=== PATIENT | male | born 1940 | race Caucasian/White ===

== ENCOUNTER → 2016-10-16 | Outpatient (CLI) | payer MEDICARE | END | disposition home or self-care (01) | LOC: RADCTMAIN 18:35 | PROVIDERS: ATTEND Family Medicine | DX: Z53.9 Procedure and treatment not carried out, unspecified reason (principal) ==

== ENCOUNTER → 2016-10-21 | Outpatient (CLI) | payer MEDICARE ==
[2016-10-21 20:09] LABS: Blood Urea Nitrogen 25 mg/dL (9-20); Non-African American GFR(MDRD) >60 (>60 ml/min/1.73 sqM)
--- NOTE | 2016-10-21 20:39 | CT ---
EXAMINATION TYPE: CT soft tissue neck w con DATE OF EXAM: 10/21/2016 8:31 PM COMPARISON: NONE HISTORY: Posterior neck mass for unknown time period, marked by BB. CT DLP: 704.00 mGycm Automated exposure control for dose reduction was used. CONTRAST: CT scan of the neck is performed following with IV Contrast, patient injected with 100 mL of Omnipaqu e 300. Axial images are obtained, coronal and sagittal reformatted images are reviewed. FINDINGS: The aortic arch appears normal. Thyroid gland is fairly symmetric. There is contrast opacification of the carotid arteries and jugular veins. There is bilateral contrast opacification of the vertebral a rteries. The parotid glands are symmetric. Submandibular salivary glands are symmetric. Epiglottis ap pears normal. The trachea appears normal. There is no sign of a pharyngeal mass. There is a oval-shap ed 3.5 x 2 cm fat density in the subcutaneous tissues on the left posterior neck. There is a similar appearance on the right side but left side is larger by 1.5 cm and consistent with a lipoma. The post erior neck muscles are symmetric. I see no bony destructive process. There is degenerative disc space narrowing at C3-4 and mild spurring. Paranasal sinuses appear normal. There are a few cervical lymph nodes that measure up to 1 cm. I see no cervical adenopathy. IMPRESSION: Asymmetric fatty tissue in the subcutaneous posterior neck on the left side consistent w ith lipoma. This is unchanged compared to old CT scan of 09/18/2014.
== END | disposition home or self-care (01) ==
LOC: RADCTMAIN 19:32
PROVIDERS: ATTEND Family Medicine
DX: L98.8 Other specified disorders of the skin and subcutaneous tissue (principal); R22.1 Localized swelling, mass and lump, neck
CPT/HCPCS: 82565; 84520; 70491; 36415; Q9967

== ENCOUNTER 2022-08-08 11:08 | Inpatient (IN) | payer MEDICARE ==
--- NOTE | 2022-08-08 12:15 | XR ---
EXAMINATION TYPE: XR chest 2V DATE OF EXAM: 08/08/2022 COMPARISON: 09/18/2014 HISTORY: 82-year-old male dysrhythmia TECHNIQUE: PA and lateral views FINDINGS: The heart is upper limits of normal in size. Aorta and pulmonary vasculature are normal. Mild interst itial prominence which is unchanged. No consolidation or pleural effusion. IMPRESSION: Borderline heart size. No acute process seen.
[2022-08-08] MEDS ORDERED: DILTIAZEM DRIP BOLUS FROM BAG 1 MG SOLN IV ONE (12:37)
[2022-08-08 12:44] LABS: Albumin 3.7 g/dL (3.5-5.0); Calcium 8.7 mg/dL (8.4-10.2); Magnesium 2.1 mg/dL (1.6-2.3); Potassium 4.9 mmol/L (3.5-5.1); Total Protein 6.9 g/dL (6.3-8.2)
[2022-08-08] MEDS ORDERED: DILTIAZEM 125 MG in SODIUM CHLORIDE 0.9% 100 ML IV SCH (12:45)
[2022-08-08 12:52] LABS: Basophils % (A) 0 %; Eosinophils # (A) 0.1 k/uL (0-0.7); Eosinophils % (A) 1 %; HCT 44.3 % (39.0-53.0); HGB 14.3 gm/dL (13.0-17.5); Lymphocytes # (A) 1.4 k/uL (1.0-4.8); Lymphocytes % (A) 19 %; MCHC 32.4 g/dL (31.0-37.0); MCV 95.7 fL (80.0-100.0); Mean Platelet Volume 7.9; Monocytes # (A) 0.7 k/uL (0-1.0); Monocytes % (A) 9 %; Neutrophils # (A) 4.8 k/uL (1.3-7.7); Neutrophils % (A) 68 %; Platelet Count 226 k/uL (150-450); RBC 4.63 m/uL (4.30-5.90); RDW 12.9 % (11.5-15.5); WBC 7.1 k/uL (3.8-10.6)
[2022-08-08 12:54] LABS: INR 1.1 (<1.2); Prothrombin Time 11.3 sec (9.0-12.0)
--- NOTE | 2022-08-08 13:06 | CT ---
EXAMINATION TYPE: CT brain wo con CT DLP: 1115.4 mGycm, Automated exposure control for dose reduction was used. DATE OF EXAM: 08/08/2022 12:56 PM COMPARISON: CT brain C-spine 09/18/2014. CLINICAL INDICATION:Male, 82 years old with history of left hand numbness, ams, sent by PCP for A-fib TECHNIQUE: Brain: Multiple axial CT images of the brain were obtained without IV contrast. Coronal and sagittal reformats reviewed. FINDINGS: Brain: Extra-axial spaces: No abnormal extra-axial fluid collections. Ventricular system: Within normal limits Cerebral parenchyma: Cerebral atrophy. No acute intraparenchymal hemorrhage or mass effect. The ryan -white junction is well differentiated. Scattered hypoattenuating areas are seen within the white mat ter. Nonspecific bilateral basal ganglia calcifications. Stable remote lacunar right basal ganglia i nfarct. Cerebellum: Symmetric stable bilateral cerebellar calcifications. Mass effect: No evidence of midline shift. Intracranial vasculature: Atherosclerotic calcifications of the intracranial vessels. Soft tissues: Normal. Calvarium/osseous structures: No depressed skull fracture. 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 Similar from prior exam. Visualized orbits: Bilateral aphakia. Bilateral scleral calcifications. IMPRESSION: 1. No acute intracranial process. 2. 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
[2022-08-08] MEDS ORDERED: SODIUM CHLORIDE 0.9% 500 ML 500 ML IV ONE (13:29)
[2022-08-08] MEDS ORDERED: HEPARIN SODIUM 1,000 UN/ML (10ML VL) IV PRN (13:31)
[2022-08-08] MEDS ORDERED: HEPARIN SODIUM 1,000 UN/ML (10ML VL) IV ONE (13:31)
[2022-08-08] MEDS ORDERED: ACETAMINOPHEN TAB 325 MG TAB PO PRN (13:42)
[2022-08-08] MEDS ORDERED: NALOXONE 0.4 MG/ML 1 ML VIAL IV PRN (13:42)
[2022-08-08] MEDS ORDERED: HEPARIN SOD,PORK IN 0.45% NACL 25,000 UNIT in 0.45% NACL 1 250ML.BAG IV SCH (13:45)
--- NOTE | 2022-08-08 13:49 | ED ---
General Adult HPI - General Chief complaint: Recheck/Abnormal Lab/Rx Stated complaint: AFib,Sent by PCP Time Seen by Provider: 08/08/22 11:31 Source: patient, RN notes reviewed, old records reviewed Mode of arrival: wheelchair Limitations: no limitations - History of Present Illness Initial comments: 82-year-old male sent in by primary care physician for new onset A. fib with RVR. Patient is a healthy 82-year-old. No prior history of A. fib. No history of CAD. Patient had gone to his primary care physician for left hand numbness which been present for the past 2 weeks or more. No headache. No vision changes. No focal weakness. No head injury. No rectal bleeding. - Related Data Home Medications Medication Instructions Recorded Confirmed Aspirin 81 mg PO HS 09/18/14 08/08/22 Alfuzosin HCl [Alfuzosin HCl ER] 10 mg PO HS 08/08/22 08/08/22 Ascorbic Acid [Vitamin C] 1,000 mg PO HS 08/08/22 08/08/22 Calcium Carb/Mag Ox/Zinc Sulf 1 tab PO HS 08/08/22 08/08/22 [Bcx-Xfp-Rgdg 334-134-5 mg Tab] Cholecalciferol [Vitamin D3 (25 25 mcg PO HS 08/08/22 08/08/22 Mcg = 1000 Iu)] Mv-Mn/Om3/Dha/Epa/Fish/Lut/Hortencia 1 cap PO HS 08/08/22 08/08/22 [Ocuvite Adult 50 Plus Softgel] Allergies Allergy/AdvReac Type Severity Reaction Status Date / Time iodine AdvReac Nausea & Verified 08/08/22 12:26 Vomiting Review of Systems ROS Statement: Those systems with pertinent positive or pertinent negative responses have been documented in the HPI. ROS Other: All systems not noted in ROS Statement are negative. Past Medical History Past Medical History: No Reported History History of Any Multi-Drug Resistant Organisms: None Reported Additional Past Surgical History / Comment(s): prostate Past Psychological History: No Psychological Hx Reported Smoking Status: Never smoker Past Alcohol Use History: Rare Past Drug Use History: None Reported General Exam Limitations: no limitations General appearance: alert, in no apparent distress Head exam: Present: atraumatic, normocephalic Eye exam: Present: normal appearance, PERRL ENT exam: Present: normal exam Neck exam: Present: normal inspection. Absent: tenderness, meningismus Respiratory exam: Present: normal lung sounds bilaterally. Absent: respiratory distress, wheezes Cardiovascular Exam: Present: tachycardia, irregular rhythm GI/Abdominal exam: Present: soft. Absent: distended, tenderness, guarding Extremities exam: Present: normal inspection, normal capillary refill. Absent: pedal edema, calf tenderness Neurological exam: Present: alert, oriented X3, CN II-XII intact. Absent: motor sensory deficit Psychiatric exam: Present: normal affect, normal mood Skin exam: Present: warm, dry, intact. Absent: cyanosis, diaphoretic Course Vital Signs 08/08/22 08/08/22 11:24 12:38 Temperature 97.8 F Pulse Rate 136 H 150 H Respiratory 18 18 Rate Blood Pressure 104/73 104/88 O2 Sat by Pulse 95 97 Oximetry EKG Findings - EKG Comments: EKG Findings:: EKG: Atrial fibrillation with RVR rate of 149, QRS duration 126, QTC 397 to right bundle branch block, no ST segment elevation. - EKG Results: EKG: interpreted by JAJA Medical Decision Making - Medical Decision Making Was pt. sent in by a medical professional or institution (, PA, GTA, urgent care, hospital, or prison...) When possible be specific @ -Centimeters by primary care physician Did you speak to anyone other than the patient for history (EMS, parent, family, police, friend...)? What history was obtained from this source @ -[No] Did you review nursing and triage notes (agree or disagree)? Why? @ -[I reviewed and agree with nursing and triage notes] Were old charts reviewed (outside hosp., previous admission, EMS record, old EKG, old radiological studies, urgent care reports/EKG's, prison records)? Report findings @ -[No old charts were reviewed] Differential Diagnosis (chest pain, altered mental status, abdominal pain women, abdominal pain men, vaginal bleeding, weakness, fever, dyspnea, syncope, hea dache, dizziness, GI bleed, back pain, seizure, CVA, palpatations, mental health, musculoskeletal)? @ Differential Weakness: Hypoglycemia, shock, sepsis, hyponatremia, anemia, infection, VT, ETOH, adverse medicine reaction, overdose, stroke, this is not meant to be an all-inclusive list. EKG interpreted by me (3pts min.). @ -[As above] X-rays interpreted by me (1pt min.). @ -[Negative for acute cardiopulmonary findings CT interpreted by me (1pt min.). @ -[No itch cranial hemorrhage, remote basal ganglion infarct U/S interpreted by me (1pt. min.). @ -[None done] What testing was considered but not performed or refused? (CT, X-rays, U/S, labs)? Why? @ -[None] What meds were considered but not given or refused? Why? @ -[None] Did you discuss the management of the patient with other professionals (professionals i.e. Dr., PA, GTA, lab, RT, psych nurse, social science professor, student driving instructor, teacher, us customs and border officer, family preservation caseworker)? Give summary @ -[No] Was smoking cessation discussed for >3mins.? @ -[No] Was critical care preformed (if so, how long)? @ -[yes ] Were there social determinants of health that impacted care today? How? (Homelessness, low income, unemployed, alcoholism, drug addiction, transportation, low edu. Level, literacy, decrease access to med. care, long term, rehab)? @ -[No] Was there de-escalation of care discussed even if they declined (Discuss DNR or withdrawal of care, Hospice)? DNR status @ -[No] What co-morbidities impacted this encounter? (DM, HTN, Smoking, COPD, CAD, Cancer, CVA, ARF, Chemo, Hep., AIDS, mental health diagnosis, sleep apnea, morbid obesity)? @ -[None] Was patient admitted / discharged? Hospital course, mention meds given and route, prescriptions, significant lab abnormalities, going to OR and other pertinent info. @ -[82-year-old male with new-onset H fibrillation with RVR and left hand numbness. Head CT was performed which is negative for intracranial hemorrhage. Patient was started on Cardizem and has a chads 2 Vasc of 2 and is antic oagulated]. Laboratory testing is unremarkable, troponin negative patient will be admitted to Dr. Shea with cardiology on consult Undiagnosed new problem with uncertain prognosis? @ -[No] Drug Therapy requiring intensive monitoring for toxicity (Heparin, Nitro, Insulin, Cardizem)? @ -[No Were any procedures done? @ -[No] Diagnosis/symptom? @ -[New-onset A. fib] Acute, or Chronic, or Acute on Chronic? @ -[Acute] Uncomplicated (without systemic symptoms) or Complicated (systemic symptoms)? @ -[Complicated] Side effects of treatment? @ -[No] Exacerbation, Progression, or Severe Exacerbation? @ -[No] Poses a threat to life or bodily function? How? (Chest pain, USA, VT, pneumonia, PE, COPD, DKA, ARF, appy, cholecystitis, CVA, Diverticulitis, Homicidal, Suicidal, threat to staff... and all critical care pts) @ -[Arrhythmia, hypotension, multiorgan failure] - Lab Data Result diagrams: 08/08/22 12:33 08/08/22 12:33 Lab Results 08/08/22 08/08/22 08/08/22 Range/Units 12:33 12:33 12:33 WBC 7.1 (3.8-10.6) k/uL RBC 4.63 (4.30-5.90) m/uL Hgb 14.3 (13.0-17.5) gm/dL Hct 44.3 (39.0-53.0) % MCV 95.7 (80.0-100.0) fL MCH 31.0 (25.0-35.0) pg MCHC 32.4 (31.0-37.0) g/dL RDW 12.9 (11.5-15.5) % Plt Count 226 (150-450) k/uL MPV 7.9 Neutrophils % 68 % Lymphocytes % 19 % Monocytes % 9 % Eosinophils % 1 % Basophils % 0 % Neutrophils # 4.8 (1.3-7.7) k/uL Lymphocytes # 1.4 (1.0-4.8) k/uL Monocytes # 0.7 (0-1.0) k/uL Eosinophils # 0.1 (0-0.7) k/uL Basophils # 0.0 (0-0.2) k/uL PT 11.3 (9.0-12.0) sec INR 1.1 (<1.2) APTT 27.0 (22.0-30.0) sec Sodium 138 (137-145) mmol/L Potassium 4.9 (3.5-5.1) mmol/L Chloride 105 (98-107) mmol/L Carbon Dioxide 26 (22-30) mmol/L Anion Gap 7 mmol/L BUN 36 H (9-20) mg/dL Creatinine 1.44 H (0.66-1.25) mg/dL Est GFR (CKD-EPI)AfAm 52 (>60 ml/min/1.73 sqM) Est GFR (CKD-EPI)NonAf 45 (>60 ml/min/1.73 sqM) Glucose 131 H (74-99) mg/dL Calcium 8.7 (8.4-10.2) mg/dL Magnesium 2.1 (1.6-2.3) mg/dL Total Bilirubin 1.0 (0.2-1.3) mg/dL AST 27 (17-59) U/L ALT 21 (4-49) U/L Alkaline Phosphatase 66 (38-126) U/L Troponin I (0.000-0.034) ng/mL Total Protein 6.9 (6.3-8.2) g/dL Albumin 3.7 (3.5-5.0) g/dL TSH 1.710 (0.465-4.680) mIU/L 08/08/22 Range/Units 12:33 WBC (3.8-10.6) k/uL RBC (4.30-5.90) m/uL Hgb (13.0-17.5) gm/dL Hct (39.0-53.0) % MCV (80.0-100.0) fL MCH (25.0-35.0) pg MCHC (31.0-37.0) g/dL RDW (11.5-15.5) % Plt Count (150-450) k/uL MPV Neutrophils % % Lymphocytes % % Monocytes % % Eosinophils % % Basophils % % Neutrophils # (1.3-7.7) k/uL Lymphocytes # (1.0-4.8) k/uL Monocytes # (0-1.0) k/uL Eosinophils # (0-0.7) k/uL Basophils # (0-0.2) k/uL PT (9.0-12.0) sec INR (<1.2) APTT (22.0-30.0) sec Sodium (137-145) mmol/L Potassium (3.5-5.1) mmol/L Chloride (98-107) mmol/L Carbon Dioxide (22-30) mmol/L Anion Gap mmol/L BUN (9-20) mg/dL Creatinine (0.66-1.25) mg/dL Est GFR (CKD-EPI)AfAm (>60 ml/min/1.73 sqM) Est GFR (CKD-EPI)NonAf (>60 ml/min/1.73 sqM) Glucose (74-99) mg/dL Calcium (8.4-10.2) mg/dL Magnesium (1.6-2.3) mg/dL Total Bilirubin (0.2-1.3) mg/dL AST (17-59) U/L ALT (4-49) U/L Alkaline Phosphatase (38-126) U/L Troponin I <0.012 (0.000-0.034) ng/mL Total Protein (6.3-8.2) g/dL Albumin (3.5-5.0) g/dL TSH (0.465-4.680) mIU/L Critical Care Time Critical Care Time: Yes Total Critical Care Time: 35 Disposition Clinical Impression: New onset a-fib, Atrial fibrillation with RVR Disposition: ADMITTED IP TO THIS HOSP Condition: Stable Is patient prescribed a controlled substance at d/c from ED?: No Referrals: Sheldon Li DO [Primary Care Provider] - 1-2 days Time of Disposition: 13:49
[2022-08-08] MEDS: SODIUM CHLORIDE 0.9% 1,000 ML IV SCH (14:19)
[2022-08-08] MEDS ORDERED: MELATONIN 3 MG TABLET PO PRN (15:00)
[2022-08-08] MEDS ORDERED: CALCIUM CARBONATE 500 MG CHEWABLE PO PRN (15:00)
[2022-08-08] MEDS ORDERED: LACTULOSE 20 GM/30 ML CUP PO PRN (15:00)
[2022-08-08] MEDS ORDERED: ONDANSETRON 4 MG/2 ML VIAL IVP PRN (15:00)
[2022-08-08] MEDS ORDERED: LORazepam 0.5 MG TAB PO PRN (15:00)
--- NOTE | 2022-08-08 19:50 | P.HPIM ---
History of Present Illness H&P Date: 08/08/22 Chief Complaint: Rapid heart rate This is a pleasant 82-year-old patient who follows Dr. Li. Chronic stable medical conditions include BPH, osteoarthritis. Patient went to see his doctor today was found to have atrial fibrillation with rapid ventricular rate. Denies any palpitation dizziness chest pain or pressure. His activity somewhat limited because of arthritis in his knees. Started on IV heparin and IV Cardizem drip in the ER. Patient has noticed since July 24 area of numbness on the left upper lip and also some numbness in the left forearm. No weakness. Denies any other focal weakness. No change in vision speech swallowing. Has chronic lower extremity edema. No orthopnea. Review of systems: GEN.: None EYES: None HEENT: None NECK: None RESPIRATORY: None CARDIOVASCULAR: None GASTROINTESTINAL: None GENITOURINARY: Some trouble with urines scream MUSCULOSKELETAL: Joint pains especially in the LYMPHATICS: None HEMATOLOGICAL: None PSYCHIATRY: None NEUROLOGICAL: As above. Past medical history to include: BPH, osteoarthritis, obesity Social history: . No smoking or alcohol Physical examination: VITAL SIGNS: 97.8, 136, 18, 104/73, 95% room air GENERAL: BMI 37.6 recliningt awake comfortable. EYES: Pupils equal. Conjunctiva normal. HEENT: External appearance of nose and ears normal, oral cavity grossly normal. NECK: JVD not raised; masses not palpable. HEART: Heart sounds irregular; present edema. LUNGS: Respiratory rate normal; clear to auscultation. ABDOMEN: Soft, nontender, liver spleen not palpable, no masses palpable. PSYCH: Alert and oriented x3; mood and affect normal. MUSCULOSKELETAL:No Clubbing/cyanosis;muscles-grossly intact. OA NEUROLOGICAL: Cranial nerves grossly intact; no facial asymmetry, power and sensation grossly intact. LYMPHATICS: No lymph nodes palpable in the axilla and neck INVESTIGATIONS, reviewed in the clinical context: White count 7.1 hemoglobin 14.3 platelets 226 potassium 4.9 BUN 36 creatinine 1.44 Troponin I less than 0.012 TSH 1.7 EKG tracing personally reviewed by me-atrial fibrillation. Rate 149 Chest x-ray film personally reviewed by me-remarkable CT brain without contrast: Remote right basal ganglia lacunar along with nonspecific white matter changes. Assessment and plan: -Atrial fibrillation uncontrolled off unknown duration. Patient had been asymptomatic IV heparin. IV Cardizem drip. 2-D echocardiogram. -Remote right basal ganglia lacunar infarct -Chronic lower extremity venous insufficiency RICHY stockings -Obesity BMI 37.6 Weight loss measures -Primary osteoarthritis Tylenol for pain control -BPH alfuzosin Consult cardiology. Neurology. Care was discussed with the patient and and daughter the bedside. Questions answered. Past Medical History Past Medical History: Diabetes Mellitus Additional Past Medical History / Comment(s): Type 2 diabetic History of Any Multi-Drug Resistant Organisms: None Reported Past Surgical History: Appendectomy, Prostate Surgery Additional Past Surgical History / Comment(s): prostate Past Anesthesia/Blood Transfusion Reactions: No Reported Reaction Past Psychological History: No Psychological Hx Reported Smoking Status: Never smoker Past Alcohol Use History: Rare Past Drug Use History: None Reported Medications and Allergies Home Medications Medication Instructions Recorded Confirmed Type Aspirin 81 mg PO HS 09/18/14 08/08/22 History Alfuzosin HCl [Alfuzosin HCl ER] 10 mg PO HS 08/08/22 08/08/22 History Ascorbic Acid [Vitamin C] 1,000 mg PO HS 08/08/22 08/08/22 History Calcium Carb/Mag Ox/Zinc Sulf 1 tab PO HS 08/08/22 08/08/22 History [Hjz-Wih-Furs 334-134-5 mg Tab] Cholecalciferol [Vitamin D3 (25 25 mcg PO HS 08/08/22 08/08/22 History Mcg = 1000 Iu)] Mv-Mn/Om3/Dha/Epa/Fish/Lut/Hortencia 1 cap PO HS 08/08/22 08/08/22 History [Ocuvite Adult 50 Plus Softgel] Allergies Allergy/AdvReac Type Severity Reaction Status Date / Time iodine AdvReac Nausea & Verified 08/08/22 12:26 Vomiting Physical Exam Vitals: Vital Signs Temp Pulse Pulse Resp BP BP Pulse Ox 08/08/22 17:24 97.8 F 85 18 147/99 97 08/08/22 15:41 125 H 18 125/88 97 08/08/22 14:00 110 H 18 121/64 98 08/08/22 12:38 150 H 18 104/88 97 08/08/22 11:24 97.8 F 136 H 18 104/73 95 Intake and Output 08/08/22 08/08/22 08/08/22 06:59 14:59 22:59 Intake Total 133.583 Balance 133.583 Intake: Intake, IV Titration 13.583 Amount Diltiazem 125 mg In 13.583 Sodium Chloride 0.9% 100 ml @ 5 MG/HR 5 mls/hr IV .Q24H COUNTS INCLUDE 234 BEDS AT THE [facility] Rx#:[id number] Oral 120 Other: Weight 108.862 kg 108.862 kg Results CBC & Chem 7: 08/08/22 12:33 08/08/22 12:33 Labs: Abnormal Lab Results - Last 24 Hours (Table) 08/08/22 Range/Units 12:33 BUN 36 H (9-20) mg/dL Creatinine 1.44 H (0.66-1.25) mg/dL Glucose 131 H (74-99) mg/dL Thrombosis Risk Factor Assmnt - Choose All That Apply Other Risk Factors: Yes Each Risk Factor Represents 3 Points: Age 75 years or older Thrombosis Risk Factor Assessment Total Risk Factor Score: 3 Thrombosis Risk Factor Assessment Level: Moderate Risk
[2022-08-08] MEDS: TAMSULOSIN 0.4 MG CAP.ER.24H PO SCH (19:59)
[2022-08-08] MEDS: ASCORBIC ACID 500 MG TAB PO SCH (19:59)
[2022-08-08] MEDS: ASPIRIN 81 MG PO SCH (19:59)
[2022-08-08] MEDS: CHOLECALCIFEROL 25 MCG (1000 IU) TABLET PO SCH (19:59)
[2022-08-08 20:05] LABS: Glucose,Whole Blood 145 mg/dL (70-110)
[2022-08-09] MEDS: SODIUM CHLORIDE 0.9% 1,000 ML IV SCH (03:01)
[2022-08-09 06:24] LABS: Glucose,Whole Blood 109 mg/dL (70-110)
[2022-08-09] MEDS: METOPROLOL TARTRATE 50 MG TAB PO SCH ×2 (08:51→20:08)
[2022-08-09] MEDS: APIXABAN 5 MG TAB PO SCH ×2 (08:51→20:08)
[2022-08-09 09:00] LABS: Basophils % (A) 1 %; Eosinophils # (A) 0.2 k/uL (0-0.7); Eosinophils % (A) 3 %; Lymphocytes # (A) 1.5 k/uL (1.0-4.8); Lymphocytes % (A) 26 %; MCH 31.9 pg (25.0-35.0); MCHC 32.5 g/dL (31.0-37.0); MCV 98.1 fL (80.0-100.0); Mean Platelet Volume 8.6; Monocytes # (A) 0.5 k/uL (0-1.0); Monocytes % (A) 8 %; Neutrophils # (A) 3.4 k/uL (1.3-7.7); Neutrophils % (A) 59 %; Platelet Count 192 k/uL (150-450); RBC 4.38 m/uL (4.30-5.90); RDW 13.2 % (11.5-15.5); WBC 5.8 k/uL (3.8-10.6)
[2022-08-09 09:23] LABS: INR 1.1 (<1.2); Partial Thromboplastin Time 68.1 sec (22.0-30.0); Prothrombin Time 11.8 sec (9.0-12.0)
--- NOTE | 2022-08-09 10:03 | P.CRDCN ---
History of Present Illness Consult date: 08/09/22 History of present illness: HISTORY OF PRESENT ILLNESS: This is a 82-year-old male with no significant past medical history. 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 We have been asked to see the patient in consultation for atrial fibrillation with RVR. Patient examined at the bedside. Patient presented to hospitals a chief complaint of numbness of his fingers on his left hand. Patient is admitted to the hospital secondary to atrial fi brillation with RVR. Patient denies a history of afib. He was started on IV Cardizem and IV heparin. Patient remains in atrial fibrillation this morning with controlled ventricular rate. Vital signs are stable. * EKG reveals atrial fibrillation with RVR. Right bundle branch block. * Chest xray negative for acute process. Borderline heart size. * CT brain: Negative for acute process. Remote right basal ganglia or lacunar along with nonspecific white matter changes likely secondary to chronic m icroangiopathy. * Laboratory data: WBC 7.1. Hemoglobin 14.3. Platelet count 226. Sodium 130. Potassium 4.9. BUN 36. Creatinine 1.44. Troponin negative 1. TSH 1.710. * Current home cardiac medications include none REVIEW OF SYSTEMS: At the time of my exam: CONSTITUTIONAL: Denies fever or chills. HEENT: Denies blurred vision, vision changes, or eye pain. Denies hemoptysis CARDIOVASCULAR: Denies chest pain. Denies orthopnea. Denies PND. Denies palpitations RESPIRATORY: Denies shortness of breath. GASTROINTESTINAL: Denies abdominal pain. Denies nausea or vomiting. HEMATOLOGIC: Denies bleeding disorders. GENITOURINARY: Denies any blood in urine. SKIN: Denies pruitis. Denies rash. PHYSICAL EXAM: VITAL SIGNS: Reviewed. GENERAL: Well-developed in no acute distress. HEENT: Head is normocephalic. Pupils are equal, round. Sclerae anicteric. Mucous membranes of the mouth are moist. Neck supple. No JVD or thyromegaly LUNGS: Respirations even and unlabored. Lungs essentially clear to auscultation bilaterally. HEART: Irregular rate and rhythm. S1 and S2 heard. Soft systolic murmur noted. ABDOMEN: Soft. Nondistended. Nontender. EXTREMITIES: Normal range of motion. No clubbing or cyanosis. Peripheral pulses intact. 2+ bilateral lower extremity edema NEUROLOGIC: Awake and alert. Oriented x 3. ASSESSMENT: New-onset atrial fibrillation with RVR Numbness of left fingers Chronic lower extremity edema likely secondary to venous insufficiency PLAN: Obtain 2-D echo to assess cardiac structure and function TSH within normal limits Discontinue IV heparin and IV Cardizem Begin Eliquis 5mg BID Begin metoprolol tartrate 50 mg twice a day Add PO Lasix 20 mg daily for lower extremity edema Continue telemetry monitoring Further recommendations pending patient's course Nurse practitioner note has been reviewed by physician. Signing provider agrees with the documented findings, assessment, and plan of care. Past Medical History Past Medical History: Diabetes Mellitus Additional Past Medical History / Comment(s): Type 2 diabetic History of Any Multi-Drug Resistant Organisms: None Reported Past Surgical History: Appendectomy, Prostate Surgery Additional Past Surgical History / Comment(s): prostate Past Anesthesia/Blood Transfusion Reactions: No Reported Reaction Past Psychological History: No Psychological Hx Reported Smoking Status: Never smoker Past Alcohol Use History: Rare Past Drug Use History: None Reported Medications and Allergies Home Medications Medication Instructions Recorded Confirmed Type Aspirin 81 mg PO HS 09/18/14 08/08/22 History Alfuzosin HCl [Alfuzosin HCl ER] 10 mg PO HS 08/08/22 08/08/22 History Ascorbic Acid [Vitamin C] 1,000 mg PO HS 08/08/22 08/08/22 History Calcium Carb/Mag Ox/Zinc Sulf 1 tab PO HS 08/08/22 08/08/22 History [Ssw-Uoi-Bxzt 334-134-5 mg Tab] Cholecalciferol [Vitamin D3 (25 25 mcg PO HS 08/08/22 08/08/22 History Mcg = 1000 Iu)] Mv-Mn/Om3/Dha/Epa/Fish/Lut/Hortencia 1 cap PO HS 08/08/22 08/08/22 History [Ocuvite Adult 50 Plus Softgel] Allergies Allergy/AdvReac Type Severity Reaction Status Date / Time iodine AdvReac Nausea & Verified 08/08/22 12:26 Vomiting Physical Exam Vitals: Vital Signs Temp Pulse Pulse Resp BP BP Pulse Ox 08/09/22 07:20 97.9 F 66 17 113/62 95 08/09/22 03:13 97.9 F 104 H 18 97/59 97 08/08/22 23:25 98.3 F 90 18 95/60 96 08/08/22 19:44 98 F 103 H 18 101/56 94 L 08/08/22 17:24 97.8 F 85 18 147/99 97 08/08/22 15:41 125 H 18 125/88 97 08/08/22 14:00 110 H 18 121/64 98 08/08/22 12:38 150 H 18 104/88 97 08/08/22 11:24 97.8 F 136 H 18 104/73 95 Intake and Output 08/08/22 08/09/22 08/09/22 22:59 06:59 14:59 Intake Total 133.583 Balance 133.583 Intake: Intake, IV Titration 13.583 Amount Diltiazem 125 mg In 13.583 Sodium Chloride 0.9% 100 ml @ 5 MG/HR 5 mls/hr IV .Q24H [facility] Rx#:[id number] Oral 120 Other: # Voids 2 Weight 108.862 kg Results 08/09/22 07:56 08/08/22 12:33 Cardiac Enzymes 08/08/22 08/08/22 Range/Units 12:33 12:33 AST 27 (17-59) U/L Troponin I <0.012 (0.000-0.034) ng/mL Coagulation 08/08/22 08/08/22 Range/Units 12:33 18:52 PT 11.3 (9.0-12.0) sec APTT 27.0 54.7 H (22.0-30.0) sec CBC 08/08/22 Range/Units 12:33 WBC 7.1 (3.8-10.6) k/uL RBC 4.63 (4.30-5.90) m/uL Hgb 14.3 (13.0-17.5) gm/dL Hct 44.3 (39.0-53.0) % Plt Count 226 (150-450) k/uL Comprehensive Metabolic Panel 08/08/22 Range/Units 12:33 Sodium 138 (137-145) mmol/L Potassium 4.9 (3.5-5.1) mmol/L Chloride 105 (98-107) mmol/L Carbon Dioxide 26 (22-30) mmol/L BUN 36 H (9-20) mg/dL Creatinine 1.44 H (0.66-1.25) mg/dL Glucose 131 H (74-99) mg/dL Calcium 8.7 (8.4-10.2) mg/dL AST 27 (17-59) U/L ALT 21 (4-49) U/L Alkaline Phosphatase 66 (38-126) U/L Total Protein 6.9 (6.3-8.2) g/dL Albumin 3.7 (3.5-5.0) g/dL Current Medications Generic Name Dose Route Start Last Admin Trade Name Charlieq PRN Reason Stop Dose Admin Acetaminophen 650 mg 08/08/22 13:42 Acetaminophen Tab 325 Mg Tab PO Q6HR PRN Mild Pain or Fever > 100.5 Ascorbic Acid 1,000 mg 08/08/22 21:00 08/08/22 19:59 Ascorbic Acid 500 Mg Tab PO 1,000 mg HS [facility] Administration Aspirin 81 mg 08/08/22 21:00 08/08/22 19:59 Aspirin 81 Mg PO 81 mg HS [facility] Administration Calcium Carbonate/Glycine 1,000 mg 08/08/22 15:00 Calcium Carbonate 500 Mg Chewable PO Q4HR PRN Dyspepsia Cholecalciferol 25 mcg 08/08/22 21:00 08/08/22 19:59 Cholecalciferol 25 Mcg (1000 Iu) Tablet PO 25 mcg HS [facility] Administration Heparin Sodium (Porcine) 0 unit 08/08/22 13:31 Heparin Sodium 1,000 Un/Ml (10ml Vl) IV PER PROTOCOL PRN Low PTT Protocol Diltiazem HCl 125 mg/ Sodium 125 mls @ 5 mls/hr 08/08/22 12:45 08/08/22 15:43 Chloride IV 10 mg/hr .Q24H [facility] 10 mls/hr Infusion 5 MG/HR Sodium Chloride 1,000 mls @ 75 mls/hr 08/08/22 13:30 08/09/22 03:01 Saline 0.9% IV 75 mls/hr .[id number] [facility] Administration Heparin Sodium/Sodium Chloride 250 mls @ 9.994 mls/hr 08/08/22 13:45 08/08/22 14:21 25,000 unit/ Sodium Chloride IV 9.18 units/kg/hr .Q24H [facility] 9.994 mls/hr Administration Protocol 9.18 UNITS/KG/HR Lactulose 20 gm 08/08/22 15:00 Lactulose 20 Gm/30 Ml Cup PO DAILY PRN Constipation Lorazepam 0.5 mg 08/08/22 15:00 Lorazepam 0.5 Mg Tab PO Q6HR PRN Anxiety Melatonin 3 mg 08/08/22 15:00 Melatonin 3 Mg Tablet PO HS PRN Insomnia Naloxone HCl 0.2 mg 08/08/22 13:42 Naloxone 0.4 Mg/Ml 1 Ml Vial IV Q2M PRN Opioid Reversal Ondansetron HCl 4 mg 08/08/22 15:00 Ondansetron 4 Mg/2 Ml Vial IVP Q8HR PRN Nausea And Vomiting Tamsulosin HCl 0.4 mg 08/08/22 21:00 08/08/22 19:59 Tamsulosin 0.4 Mg Cap.Er.24h PO 0.4 mg HS [facility] Administration Intake and Output 08/08/22 08/09/22 08/09/22 22:59 06:59 14:59 Intake Total 133.583 Balance 133.583 Intake: Intake, IV Titration 13.583 Amount Diltiazem 125 mg In 13.583 Sodium Chloride 0.9% 100 ml @ 5 MG/HR 5 mls/hr IV .Q24H [facility] Rx#:[id number] Oral 120 Other: # Voids 2 Weight 108.862 kg 08/08/22 12:33 08/08/22 12:33
[2022-08-09 11:39] LABS: Glucose,Whole Blood 123 mg/dL (70-110)
[2022-08-09] MEDS: FUROSEMIDE 20 MG TAB PO SCH (12:32)
--- NOTE | 2022-08-09 15:42 | P.PN ---
Progress Note - Text Progress Note Date: 08/09/22 Chief Complaint: Rapid heart rate This is a pleasant 82-year-old patient who follows Dr. Li. Chronic stable medical conditions include BPH, osteoarthritis. Patient went to see his doctor today was found to have atrial fibrillation with rapid ventricular rate. Denies any palpitation dizziness chest pain or pressure. His activity somewhat limited because of arthritis in his knees. Started on IV heparin and IV Cardizem drip in the ER. Patient has noticed since July 24 area of numbness on the left upper lip and also some numbness in the left forearm. No weakness. Denies any other focal weakness. No change in vision speech swallowing. Has chronic lower extremity edema. No orthopnea. 08/09/2022: Patient remains in atrial fibrillation. Heart rate less than 100. This after patient sitting up in a chair eating lunch. at the bedside. No chest pain or palpitation. Patient earlier was taken off IV heparin and IV Cardizem by cardiology Started on metoprolol 50 mg twice daily. Active Medications Acetaminophen (Acetaminophen Tab 325 Mg Tab) 650 mg PO Q6HR PRN PRN Reason: Mild Pain or Fever > 100.5 Apixaban (Apixaban 5 Mg Tab) 5 mg PO BID [facility]; Protocol Last Admin: 08/09/22 08:51 Dose: 5 mg Ascorbic Acid (Ascorbic Acid 500 Mg Tab) 1,000 mg PO [facility] Last Admin: 08/08/22 19:59 Dose: 1,000 mg Aspirin (Aspirin 81 Mg) 81 mg PO HS [facility] Last Admin: 08/08/22 19:59 Dose: 81 mg Calcium Carbonate/Glycine (Calcium Carbonate 500 Mg Chewable) 1,000 mg PO Q4HR PRN PRN Reason: Dyspepsia Cholecalciferol (Cholecalciferol 25 Mcg (1000 Iu) Tablet) 25 mcg PO [facility] Last Admin: 08/08/22 19:59 Dose: 25 mcg Furosemide (Furosemide 20 Mg Tab) 20 mg PO DAILY [facility] Last Admin: 08/09/22 12:32 Dose: 20 mg Lactulose (Lactulose 20 Gm/30 Ml Cup) 20 gm PO DAILY PRN PRN Reason: Constipation Lorazepam (Lorazepam 0.5 Mg Tab) 0.5 mg PO Q6HR PRN PRN Reason: Anxiety Melatonin (Melatonin 3 Mg Tablet) 3 mg PO HS PRN PRN Reason: Insomnia Metoprolol Tartrate (Metoprolol Tartrate 50 Mg Tab) 50 mg PO BID [facility] Last Admin: 08/09/22 08:51 Dose: 50 mg Naloxone HCl (Naloxone 0.4 Mg/Ml 1 Ml Vial) 0.2 mg IV Q2M PRN PRN Reason: Opioid Reversal Ondansetron HCl (Ondansetron 4 Mg/2 Ml Vial) 4 mg IVP Q8HR PRN PRN Reason: Nausea And Vomiting Tamsulosin HCl (Tamsulosin 0.4 Mg Cap.Er.24h) 0.4 mg PO HS [facility] Last Admin: 08/08/22 19:59 Dose: 0.4 mg Past medical history to include: BPH, osteoarthritis, obesity Social history: . No smoking or alcohol Physical examination: VITAL SIGNS: 98.3, 65, 17, 106/62, 98% room air GENERAL: Sitting up in a chair, eating lunch EYES: Pupils equal. Conjunctiva normal. HEENT: External appearance of nose and ears normal, oral cavity grossly normal. NECK: JVD not raised; masses not palpable. HEART: Heart sounds irregular; edema present LUNGS: Respiratory rate normal; clear to auscultation. ABDOMEN: Soft, nontender, liver spleen not palpable, no masses palpable. PSYCH: Alert and oriented x3; mood and affect normal. MUSCULOSKELETAL:No Clubbing/cyanosis;muscles-grossly intact. OA NEUROLOGICAL: Cranial nerves grossly intact; no facial asymmetry, power and sensation grossly intact. INVESTIGATIONS, reviewed in the clinical context: August 09: White count 5.8 hemoglobin 14 platelets 192 White count 7.1 hemoglobin 14.3 platelets 226 potassium 4.9 BUN 36 creatinine 1.44 Troponin I less than 0.012 TSH 1.7 EKG tracing personally reviewed by me-atrial fibrillation. Rate 149 Chest x-ray film personally reviewed by me-remarkable CT brain without contrast: Remote right basal ganglia lacunar along with nonspecific white matter changes. Assessment and plan: -Persistent Atrial fibrillation-asymptomatic, rate better controlled IV heparin. IV Cardizem drip. Discontinued Lopressor 50 mg twice a day. 2-D echocardiogram pending -Remote right basal ganglia lacunar infarct 2-D echocardiogram. Consult neurology. -Chronic lower extremity venous insufficiency RICHY stockings -Obesity BMI 37.6 Weight loss measures -Primary osteoarthritis Tylenol for pain control -BPH alfuzosin -DO NOT RESUSCITATE IV heparin, IV Cardizem drip discontinued. Lopressor started. Pending 2-D echocardiogram. Consult neurology. Discussed with patient and .
[2022-08-09 16:33] LABS: Glucose,Whole Blood 142 mg/dL (70-110)
[2022-08-09] MEDS: ASCORBIC ACID 500 MG TAB PO SCH (20:08)
[2022-08-09] MEDS: ASPIRIN 81 MG PO SCH (20:08)
[2022-08-09] MEDS: TAMSULOSIN 0.4 MG CAP.ER.24H PO SCH (20:08)
[2022-08-09] MEDS: CHOLECALCIFEROL 25 MCG (1000 IU) TABLET PO SCH (20:08)
[2022-08-09 20:15] LABS: Glucose,Whole Blood 119 mg/dL (70-110)
--- NOTE | 2022-08-10 06:14 | P.PN ---
Subjective Progress Note Date: 08/10/22 Principal diagnosis: Persistent atrial fibrillation The patient is an 82-year-old gentleman with a past medical history significant for hypertension and dyslipidemia who was admitted to the hospital with left arm numbness. He was found to be in atrial fibrillation with RVR which is a new diagnosis to him. An echo was ordered. He was started on beta charisse and oral anticoagulation August 10 2022 The patient was seen and evaluated this morning. He remains in atrial fibr illation was overall and controlled heart rate. I'm going to increase the dose of beta charisse. He is on oral anticoagulation. An echo still pending. No symptoms of chest pain or chest discomfort at this point. Assessment Left arm numbness which has improved Atrial fibrillation with uncontrolled heart rate Multiple comorbid conditions Plan Increase the dose of beta charisse Continue oral anticoagulation Follow-up on the echocardiogram Objective - Vital Signs Vital signs: Vital Signs Temp 98.2 F 08/10/22 03:18 Pulse 102 H 08/10/22 03:18 Resp 18 08/10/22 03:18 BP 110/73 08/10/22 03:18 Pulse Ox 96 08/10/22 03:18 FiO2 Intake & Output 08/09/22 08/09/22 08/10/22 06:59 18:59 06:59 Intake Total 354 Balance 354 Weight 111.4 kg Intake: Oral 354 Other: Voiding Method Toilet Toilet # Voids 2 3 - Labs CBC & Chem 7: 08/09/22 07:56 08/08/22 12:33 Labs: Abnormal Lab Results - Last 24 Hours (Table) 08/09/22 08/09/22 08/09/22 Range/Units 07:56 11:32 16:30 APTT 68.1 H (22.0-30.0) sec POC Glucose (mg/dL) 123 H 142 H (70-110) mg/dL 08/09/22 Range/Units 20:14 APTT (22.0-30.0) sec POC Glucose (mg/dL) 119 H (70-110) mg/dL
[2022-08-10 06:15] LABS: Glucose,Whole Blood 115 mg/dL (70-110)
[2022-08-10 09:10] VITALS: TEMP 97.8
[2022-08-10] MEDS: FUROSEMIDE 20 MG TAB PO SCH (09:10)
[2022-08-10] MEDS: METOPROLOL TARTRATE 50 MG TAB PO SCH ×2 (09:10→16:12)
[2022-08-10] MEDS: APIXABAN 5 MG TAB PO SCH (09:10)
[2022-08-10 12:02] LABS: Glucose,Whole Blood 84 mg/dL (70-110)
--- NOTE | 2022-08-10 12:34 | CA ---
Transthoracic Echo Report Name: Alonzo Lambert Age: 82 Gender: M : 1940 Exam Date: 08/09/2022 12:00 Exam Location: [facility] Ht (in): 67 Wt (lb): 240 Ordering Physician: Ricardo Shea MD Attending/Referring Phys: Pin Chaser Percy Ruiz RDCS Procedure CPT: Indications: 2-D echo Cardiac Hx: A. Fib; CAD; HTN; CHF; Pulm. Emphysema; Obesity. Technical Quality: Fair Contrast 1: Total Dose (mL): Contrast 2: Total Dose (mL): MEASUREMENTS (Male / Female) Normal Values 2D ECHO LV Diastolic Diameter PLAX 5.3 cm 4.2 - 5.9 / 3.9 - 5.3 cm LV Systolic Diameter PLAX 4.1 cm LV Fractional Shortening PLAX 21.8 % IVS Diastolic Thickness 1.0 cm 0.6 - 1.0 / 0.6 - 0.9 cm IVS Systolic Thickness 1.4 cm LVPW Diastolic Thickness 1.4 cm 0.6 - 1.0 / 0.6 - 0.9 cm LVPW Systolic Thickness 1.5 cm LV Relative Wall Thickness 0.4 RV Internal Dim ED PLAX 2.9 cm LVOT Diameter 2.3 cm LA Systolic Diameter LX 3.6 cm 3.0 - 4.0 / 2.7 - 3.8 cm LV Diastolic Volume MOD 4C 88.7 cm??? LV Systolic Volume MOD 4C 46.6 cm??? LV Ejection Fraction MOD 4C 47.5 % LV Stroke Volume MOD 4C 42.1 cm??? LV Diastolic Length 4C 7.0 cm LV Systolic Length 4C 6.1 cm Ascending Aorta Diameter 2.7 cm M-MODE Aortic Root Diameter MM 2.7 cm LA Systolic Diameter MM 4.0 cm LA Ao Ratio MM 1.5 AV Cusp Separation MM 1.7 cm DOPPLER AV Peak Velocity 119.8 cm/s AV Peak Gradient 5.7 mmHg LVOT Peak Velocity 91.1 cm/s LVOT Peak Gradient 3.3 mmHg AV Area Cont Eq pk 3.1 cm??? MV Deceleration [place] 456.4 cm/s??? MR Peak Velocity 323.3 cm/s MR Peak Gradient 41.8 mmHg Mitral E Point Velocity 91.7 cm/s Mitral A Point Velocity 20.2 cm/s Mitral E to A Ratio 4.5 MV Deceleration Time 200.9 ms TR Peak Velocity 180.6 cm/s TR Peak Gradient 13.0 mmHg Right Ventricular Systolic Press 22.0 mmHg PV Peak Velocity 68.0 cm/s PV Peak Gradient 1.8 mmHg FINDINGS Left Ventricle Left ventricular ejection fraction is estimated at 35-40 %. Borderline left ventricular hypertrophy. Grade 3 diastolic dysfunction. Moderately reduced global left ventricular systolic function. [place] hypokinetic. Dyskinetic septum. Right Ventricle Normal right ventricular size .RVSP- 29 mm Hg. Right Atrium Mild right atrial dilatation. Left Atrium Normal left atrial size. Mitral Valve Mitral valve thickened. Flail mitral valve. Fxoc-zf-kelprdre mitral regurgitation. Minimal mitral stenosis. Aortic Valve Trileaflet aortic valve. Diffuse thickening (sclerosis) of the aortic valve cusps without reduced excursion. Tricuspid Valve TV is flailing;mild tricuspid regurgitation. Pulmonic Valve Trace to mild pulmonic regurgitation. Pericardium Normal pericardium. No pericardial effusion. Aorta Normal size aortic root and proximal ascending aorta. CONCLUSIONS Impaired LV function was EF between 35-40% Aortic sclerosis with no stenosis or insufficiency Axon-zy-uuqibsnc mitral regurgitation Previewed by: Dr. Zaid Barreto MD (Electronically Signed) Final Date: 10 August 2022 12:33
--- NOTE | 2022-08-10 15:26 | P.CNNES ---
History of Present Illness Consult date: 08/10/22 Requesting physician: Ricardo Shea Reason for Consult: Subacute, lacunar infarct History of Present Illness: Patient is a 82-year-old right-handed male came to the hospital on 08/08/2022 at 11:08 AM for new onset atrial fibrillation. Patient states that on 07/24/2022, he was sitting in the chair, watching TV, but he developed numbness of the left side of the lip, left side of the face and also numbness of the left hand in lateral 3 digits. He did not tell this to his until on 08/08/2022. His took him to the primary physician's office, where an EKG revealing atrial fibrillation therefore he was referred to the hospital. He denies any slurred speech, facial droop, problem with the vision, focal weakness of the extremities. Vital signs on arrival blood pressure 104/73, pulse rate 136 and temperature 97.8. Blood test shows normal CBC, PT/PTT, normal electrolytes, BUN 36 creatinine 1.44. Hepatic panel is normal, troponin negative, TSH is normal. CT head revealed no acute process. Remote right basal ganglial lacunar infarct along with nonspecific white matter changes, likely secondary to chronic microangiopathy. I personally reviewed d CT head, and there is no evidence of significant abnormality or lacunar infarcts. Mild basal ganglionic and cerebellar calcification. These calcifications are essentially unchanged from previous computed tomography scan of head from 09/18/2014. Patient has history of type 2 diabetes borderline, not on treatment. He does not know about his cholesterol status. Patient quit smoking in 1973. Does not drink alcohol. Review of Systems Constitutional: Denies chills, Denies fever Eyes: denies blurred vision, denies diplopia, denies pain Ears: bilateral: decreased hearing, deny: earache Ears, nose, mouth and throat: Denies headache, Denies sore throat Cardiovascular: Denies chest pain, Denies shortness of breath Respiratory: Denies cough, Denies excessive sputum Gastrointestinal: Denies abdominal pain, Denies diarrhea, Denies nausea, Denies vomiting Musculoskeletal: Denies myalgias Integumentary: Denies pruritus, Denies rash Neurological: Reports as per HPI ( history) Psychiatric: Denies anxiety, Denies depression Past Medical History Past Medical History: Diabetes Mellitus Additional Past Medical History / Comment(s): Type 2 diabetic History of Any Multi-Drug Resistant Organisms: None Reported Past Surgical History: Appendectomy, Prostate Surgery Additional Past Surgical History / Comment(s): prostate Past Anesthesia/Blood Transfusion Reactions: No Reported Reaction Past Psychological History: No Psychological Hx Reported Smoking Status: Never smoker Past Alcohol Use History: Rare Past Drug Use History: None Reported Medications and Allergies Home Medications Medication Instructions Recorded Confirmed Type Aspirin 81 mg PO HS 09/18/14 08/08/22 History Alfuzosin HCl [Alfuzosin HCl ER] 10 mg PO HS 08/08/22 08/08/22 History Ascorbic Acid [Vitamin C] 1,000 mg PO HS 08/08/22 08/08/22 History Calcium Carb/Mag Ox/Zinc Sulf 1 tab PO HS 08/08/22 08/08/22 History [Sjp-Bfl-Txgc 334-134-5 mg Tab] Cholecalciferol [Vitamin D3 (25 25 mcg PO HS 08/08/22 08/08/22 History Mcg = 1000 Iu)] Mv-Mn/Om3/Dha/Epa/Fish/Lut/Hortencia 1 cap PO HS 08/08/22 08/08/22 History [Ocuvite Adult 50 Plus Softgel] Apixaban [Eliquis] 5 mg PO BID #60 tab 08/09/22 Rx Allergies Allergy/AdvReac Type Severity Reaction Status Date / Time iodine AdvReac Nausea & Verified 08/08/22 12:26 Vomiting Physical Examination - Vital Signs Vital Signs: Vital Signs Temp Pulse Resp BP Pulse Ox 08/10/22 11:21 77 16 102/72 97 08/10/22 09:10 97.8 F 78 15 119/66 99 08/10/22 03:18 98.2 F 102 H 18 110/73 96 08/09/22 23:36 98.3 F 89 20 111/81 98 08/09/22 19:51 98.2 F 100 18 132/103 08/09/22 16:00 97.7 F 61 16 128/61 98 08/09/22 14:00 65 17 Intake and Output 08/09/22 08/10/22 08/10/22 22:59 06:59 14:59 Intake Total 118 358 Balance 118 358 Intake: Oral 118 358 Other: Voiding Method Toilet Toilet Toilet # Voids 3 Weight 111.4 kg Patient is an elderly male, very pleasant, in no acute distress. Patient is alert awake oriented to time place and person. He knows it is July 2022 and that he is in [facility]. Speech and language functions are normal. Patient can name and repeat very well. No aphasia or dysarthria. Attention, concentration and fund of knowledge is adequate. On cranial nerve examination, both pupils are surgical. Left pupil probably is slightly irregular nasally. His visual [place] are full on confrontation, with no neglect on double simultaneous stimulation. Extraocular muscles are intact with no nystagmus. Face is symmetric, tongue protrudes to the midline. Palatal elevation and sensation normal, hearing is severely decreased and shoulder shrug normal, facial sensation normal. On muscle strength testing, there is no pronator drift and the strength is normal in arms and legs distally and proximally. Deep tendon reflexes are very hypoactive and plantars downgoing. Sensory to touch is equal with no neglect on double simultaneous stimulation. Cerebellar function showed no ataxia for cggpkj-[id number] testing. Tone and bulk of muscles normal. Gait deferred.. On general examination, there is no carotid bruit or murmur, S1-S2 audible. Heart rate is regular. Chest is clear on consultation. Abdomen is soft nontender. No organomegaly, bowel sounds present. Peripheral pulses are present. Moderate peripheral edema. Results - Laboratory Findings CBC and BMP: 08/09/22 07:56 08/08/22 12:33 Abnormal Lab Findings: Abnormal Labs 08/08/22 08/08/22 08/08/22 12:33 18:52 20:02 APTT 54.7 H BUN 36 H Creatinine 1.44 H Glucose 131 H POC Glucose (mg/dL) 145 H 08/09/22 08/09/22 08/09/22 07:56 11:32 16:30 APTT 68.1 H BUN Creatinine Glucose POC Glucose (mg/dL) 123 H 142 H 08/09/22 08/10/22 20:14 06:14 APTT BUN Creatinine Glucose POC Glucose (mg/dL) 119 H 115 H Assessment and Plan Assessment: * Probable small launar stroke manifesting with numbness of the left cheek and left hand since 07/24/2022. The left facial numbness resolved, but left hand numbness in median nerve distribution has persisted. Current NIH stroke scale is 0. * New onset atrial fibrillation * Hypertension * Borderline diabetes * Obesity * Peripheral edema * Hard of hearing Plan: * Patient has new onset atrial fibrillation. Patient started on Eliquis 2.5 mg twice a day and also on aspirin. * 2-D echo revealed impaired left ventricular function with EF between 35-40%. Aortic sclerosis with no stenosis or insufficiency. Mild to moderate MR. * Did not hear any carotid bruit. * May suggest health maintenance as an outpatient with fasting lipid panel, A1c. * Neurologically clear for discharge. Thank you for the consult.
[2022-08-10 15:33] VITALS: BP 124/76; PULSE 74; RESP 17
--- NOTE | 2022-08-11 23:06 | P.DS ---
Providers Date of admission: 08/08/22 13:43 Attending physician: Ricardo Shea Consults: 08/08/22 13:42 Consult Physician Routine Consulting Provider: Daniel Apodaca Consult Reason/Comments: New-onset A. 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 Hypertension Borderline diabetes Obesity Chronic peripheral edema Hard of hearing Former Smoker No Code Discharge Disposition Patient stable for discharge in guarded prognosis. Recommend close follow up with cardiology, neurology and PCP on discharge. Patient recommended for routine health maintenance to undergo fasting lipid panel and A1C monitoring outpatient. Scripts are given on discharge. Patient is being discharged on eliquis 5 mg BID and counseled on lifestyle modifications. Family at bedside and all questions are answered. Hospital Course This is a pleasant 82-year-old patient who follows Dr. Li. Chronic stable medical conditions include BPH, osteoarthritis. Patient went to see his doctor today was found to have atrial fibrillation with rapid ventricular rate. Denies any palpitation dizziness chest pain or pressure. His activity somewhat limited because of arthritis in his knees. Started on IV heparin and IV Cardizem drip in the ER. Patient has noticed since July 24 area of numbness on the left upper lip and also some numbness in the left forearm. No weakness. Denies any other focal weakness. No change in vision speech swallowing. Has chronic lower extremity edema. No orthopnea. Patient is admitted to the hospital with consult placed to cardiology and neurology. Chest xray showing no acute process. Initial labs showing BUN 36, creatinine 1.44. Troponin negative. CBC unremarkable. Patient was taken off IV heparin and IV Cardizem by cardiology Started on metoprolol 50 mg twice daily. Heart rate dropped to the low 100s and metoprolol was increased to TID and remains now in atrial fibrillation with controlled rate. Patient had echocardiogram done showing EF of 35-40% with aortic sclerosis with no stenosis or insufficiency. Mild to moderate mitral regurgitation. Reviewed with cardiology and patient will be discharged on oral lasix and has been anticoagulated with eliquis and will continued on discharge. Patient recommended for close follow up with cardiology on discharge. Patient underwent neurological evaluation and had brain CT done showing no acute intracranial process with remote right basal ganglial lacunar infarct along with nonspecific white matter changes likely secondary to chronic microangiopathy. Neurology felt likely small lacunar infarct. Patient is anticoagulated on discharge and recommend neurology follow up. 08/10/2022 Patient is evaluated today sitting up in chair. No acute events overnight. Residual left hand numbness. No chest pain, no shortness of breath. Lungs are diminished, S1 S2 auscultated irregularly irregular. Rate of 74. Patient is alert x 3, focal neurological exam is negative. He would like to be discharged home today. Cleared by neurology and cardiology. Recommend close follow up on discharge. Please see medication reconciliation for a list of current medication. Thank you for allowing us to participate in the care of this patient. The impression and plan of care has been dictated by Yasmeen Russell, Nurse Practitioner as directed. Dr. Mike MD I have performed a history and physical examination and medical decision making of this patient, discussed the same with the dictator, and agree with the dictators assessment and plan as written, documented as a scribe. Based on total visit time, I have performed more than 50% of this visit. Patient Condition at Discharge: Stable Plan - Discharge Summary New Discharge Prescriptions: New Apixaban [Eliquis] 5 mg PO BID #60 tab Furosemide [Lasix] 20 mg PO DAILY #30 tab Famotidine [Pepcid] 20 mg PO BID #60 tablet Metoprolol Tartrate [Lopressor] 50 mg PO TID #90 tab Atorvastatin [Lipitor] 40 mg PO DAILY #30 tablet Continue Aspirin 81 mg PO HS Ascorbic Acid [Vitamin C] 1,000 mg PO HS Mv-Mn/Om3/Dha/Epa/Fish/Lut/Hortencia [Ocuvite Adult 50 Plus Softgel] 1 cap PO HS Calcium Carb/Mag Ox/Zinc Sulf [Dkl-Iyq-Jwtb 334-134-5 mg Tab] 1 tab PO HS Cholecalciferol [Vitamin D3 (25 Mcg = 1000 Iu)] 25 mcg PO HS Alfuzosin HCl [Alfuzosin HCl ER] 10 mg PO HS Discharge Medication List Aspirin 81 mg PO HS 09/18/14 [History] Alfuzosin HCl [Alfuzosin HCl ER] 10 mg PO HS 08/08/22 [History] Ascorbic Acid [Vitamin C] 1,000 mg PO HS 08/08/22 [History] Calcium Carb/Mag Ox/Zinc Sulf [Itw-Kgt-Cgff 334-134-5 mg Tab] 1 tab PO HS 08/08/22 [History] Cholecalciferol [Vitamin D3 (25 Mcg = 1000 Iu)] 25 mcg PO HS 08/08/22 [History] Mv-Mn/Om3/Dha/Epa/Fish/Lut/Hortencia [Ocuvite Adult 50 Plus Softgel] 1 cap PO HS 08/08/22 [History] Apixaban [Eliquis] 5 mg PO BID #60 tab 08/09/22 [Rx] Atorvastatin [Lipitor] 40 mg PO DAILY #30 tablet 08/10/22 [Rx] Famotidine [Pepcid] 20 mg PO BID #60 tablet 08/10/22 [Rx] Furosemide [Lasix] 20 mg PO DAILY #30 tab 08/10/22 [Rx] Metoprolol Tartrate [Lopressor] 50 mg PO TID #90 tab 08/10/22 [Rx] Follow up Appointment(s)/Referral(s): Mirta Castillo MD [STAFF PHYSICIAN] - 2 Weeks (Office is closed, please call to [facility] follow up appointment ) Ben Tam MD [REFERRING] - 1 Week (Office is closed, please call to schedule hospital follow up. ) Sheldon Li DO [Primary Care Provider] - 1-2 days (Office is closed, please call to schedule hospital follow up. ) Ambulatory/Diagnostic Orders: Miscellaneous Lab Order [LAB.AMB] Time Frame: 1 Week, Location: None Selected Miscellaneous Lab Order [LAB.AMB] Time Frame: 1 Week, Location: None Selected Patient Instructions/Handouts: A-fib (Atrial Fibrillation) (DC) Activity/Diet/Wound Care/Special Instructions: Eliquis filled at [facility] - copay $40.64 Recommend fasting lipid panel and A1C which can be done outpatient on follow. Lab script are given. Recommend neurology follow up on discharge Cardiology follow up on discharge Follow up with PCP in 1 to 2 days Discharge Disposition: HOME SELF-CARE
== END 2022-08-10 16:35 | disposition home or self-care (01) | DRG 308 ==
LOC: EC 11:08 → 3SCARD 13:43
PROVIDERS: ADMIT Hospitalist; ATTEND Hospitalist
PROC: B246ZZ4 Ultrasonography of Right and Left Heart, Transesophageal (ICD-10-PCS; principal; 2022-08-09)
DX: I48.19 Other persistent atrial fibrillation (principal); I63.81 Other cerebral infarction due to occlusion or stenosis of small artery; I45.10 Unspecified right bundle-branch block; I70.0 Atherosclerosis of aorta; K59.00 Constipation, unspecified; M19.91 Primary osteoarthritis, unspecified site; I87.2 Venous insufficiency (chronic) (peripheral); I34.0 Nonrheumatic mitral (valve) insufficiency; I42.9 Cardiomyopathy, unspecified; G47.00 Insomnia, unspecified; F41.9 Anxiety disorder, unspecified; I10 Essential (primary) hypertension; E66.9 Obesity, unspecified; E78.5 Hyperlipidemia, unspecified; Z91.041 Radiographic dye allergy status; N40.0 Benign prostatic hyperplasia without lower urinary tract symptoms; Z68.37 Body mass index [BMI] 37.0-37.9, adult; Z79.01 Long term (current) use of anticoagulants; Z79.82 Long term (current) use of aspirin; Z79.899 Other long term (current) drug therapy; Z86.73 Personal history of transient ischemic attack (TIA), and cerebral infarction without residual deficits; Z87.891 Personal history of nicotine dependence; Z66 Do not resuscitate
CPT/HCPCS: 36415; 70450; 71046; 80053; 83735; 84443; 84484; 85025; 85610; 85730; 93005; 93306; 94760; 96365; 96366; 96368; 99291

== ENCOUNTER 2022-09-26 10:46 | Emergency (ER) | payer MEDICARE ==
[2022-09-26 11:37] LABS: Glucose,Whole Blood 138 mg/dL (70-110)
[2022-09-26 12:04] LABS: INR 1.3 (<1.2); Partial Thromboplastin Time 27.6 sec (22.0-30.0); Prothrombin Time 13.2 sec (9.0-12.0)
[2022-09-26 12:19] LABS: Albumin 3.2 g/dL (3.5-5.0); Calcium 8.2 mg/dL (8.4-10.2); Magnesium 2.1 mg/dL (1.6-2.3); Potassium 3.9 mmol/L (3.5-5.1); Total Bilirubin 1.1 mg/dL (0.2-1.3); Total Protein 6.2 g/dL (6.3-8.2)
[2022-09-26 12:20] LABS: HGB 13.7 gm/dL (13.0-17.5); MCH 31.4 pg (25.0-35.0); MCHC 32.6 g/dL (31.0-37.0); MCV 96.2 fL (80.0-100.0); Mean Platelet Volume 8.6; Platelet Count 178 k/uL (150-450); RBC 4.37 m/uL (4.30-5.90); RDW 13.8 % (11.5-15.5)
[2022-09-26 12:27] LABS: Appearance,Urine Turbid (Clear); Bacteria,Urine Occasional /hpf; Bilirubin,Urine Negative (Negative); Blood,Urine Small (Negative); Color,Urine Yellow; Glucose,Urine (UA) Negative (Negative); Ketones,Urine Negative (Negative); Leukocyte Esterase,Urine Large (Negative); Nitrite,Urine Negative (Negative); Protein,Urine 1+ (Negative); RBC,Urine 17 /hpf (0-5); Specific Gravity,Urine 1.015 (1.001-1.035); Urobilinogen,Urine <2.0 mg/dL (<2.0); WBC,Urine >182 /hpf (0-5)
--- NOTE | 2022-09-26 12:35 | CT ---
EXAMINATION TYPE: CT brain wo con DATE OF EXAM: 09/26/2022 HISTORY: Altered mental status. CT DLP: 1214.4 mGycm. Automated Exposure Control for Dose Reduction was Utilized. TECHNIQUE: CT scan of the head is performed without contrast. COMPARISON: CT brain dated 08.08.2022. FINDINGS: There is no acute intracranial hemorrhage or midline shift identified. There is mild to m oderate diffuse ventricular and sulcal prominence redemonstrated. There is mild to moderate low-atte nuation in the periventricular white matter redemonstrated. Calcifications in the bilateral basal francesco glia and cerebellar hemispheres are redemonstrated. Partially opacified left mastoid air cells are ag ain seen. Bilateral scleral calcifications redemonstrated. Nasal septum is slightly deviated to right of midline. Visualized paranasal sinuses are clear. IMPRESSION: No acute intracranial hemorrhage or midline shift. There is mild to moderate diffuse ce rebral atrophy and chronic small vessel ischemic change redemonstrated. No significant change from r ecent prior CT.
--- NOTE | 2022-09-26 12:46 | XR ---
EXAMINATION TYPE: XR chest 2V DATE OF EXAM: 09/26/2022 COMPARISON: Chest x-ray August 08, 2022 HISTORY: Fatigue and weakness TECHNIQUE: Frontal and lateral views of the chest are obtained. FINDINGS: There is some chronic parenchymal change bilaterally without suspicious new focal air spac e opacity or pneumothorax seen. Small to tiny left pleural effusion or pleural thickening. The cardia c silhouette size is upper limits of normal. The osseous structures are intact. IMPRESSION: There is small to tiny left pleural effusion or pleural thickening. No new acute pulmona ry infiltrate.
--- NOTE | 2022-09-26 12:57 | ED ---
General Adult HPI - General Chief complaint: Weakness Stated complaint: Altered Mental Status Time Seen by Provider: 09/26/22 11:08 Source: patient, RN notes reviewed Mode of arrival: EMS Limitations: no limitations - History of Present Illness Initial comments: 82-year-old male with a past medical history significant for hypertension and hyperlipidemia presents the emergency department via EMS with a chief complaint of generalized fatigue. Patient is reporting from his PCP. He reports that this morning he woke up and just felt tired. He reports that upon arrival to the ED his symptoms have since resolved. He offersspecific complaints at the time of obtaining the history. He denies any fever, fatigue, cough, chest pain, palpitations, abdominal pain, nausea, vomiting, diarrhea, dysuria, hematuria, melena, hematochezia. Denies recent falls or trauma. - Related Data Home Medications Medication Instructions Recorded Confirmed Alfuzosin HCl [Alfuzosin HCl ER] 10 mg PO HS 08/08/22 09/26/22 Ascorbic Acid [Vitamin C] 1,000 mg PO HS 08/08/22 09/26/22 Calcium Carb/Mag Ox/Zinc Sulf 1 tab PO HS 08/08/22 09/26/22 [Lxy-Zcl-Cofw 334-134-5 mg Tab] Cholecalciferol [Vitamin D3 (25 25 mcg PO HS 08/08/22 09/26/22 Mcg = 1000 Iu)] Mv-Mn/Om3/Dha/Epa/Fish/Lut/Hortencia 1 cap PO HS 08/08/22 09/26/22 [Ocuvite Adult 50 Plus Softgel] Losartan Potassium [Cozaar] 50 mg PO DAILY 09/26/22 09/26/22 Metoprolol Tartrate [Lopressor] 25 mg PO BID 09/26/22 09/26/22 Previous Rx's Medication Instructions Recorded Apixaban [Eliquis] 5 mg PO BID #60 tab 08/09/22 Atorvastatin [Lipitor] 40 mg PO DAILY #30 tablet 08/10/22 Famotidine [Pepcid] 20 mg PO BID #60 tablet 08/10/22 Furosemide [Lasix] 20 mg PO DAILY #30 tab 08/10/22 Cephalexin [Keflex] 500 mg PO Q6HR #40 cap 09/26/22 Allergies Allergy/AdvReac Type Severity Reaction Status Date / Time iodine AdvReac Nausea & Verified 09/26/22 12:32 Vomiting Review of Systems ROS Statement: Those systems with pertinent positive or pertinent negative responses have been documented in the HPI. ROS Other: All systems not noted in ROS Statement are negative. Past Medical History Past Medical History: CVA/TIA, Diabetes Mellitus Additional Past Medical History / Comment(s): Type 2 diabetic History of Any Multi-Drug Resistant Organisms: None Reported Past Surgical History: Appendectomy, Prostate Surgery Additional Past Surgical History / Comment(s): prostate Past Anesthesia/Blood Transfusion Reactions: No Reported Reaction Past Psychological History: No Psychological Hx Reported Smoking Status: Never smoker Past Alcohol Use History: Rare Past Drug Use History: None Reported General Exam - General Exam Comments Initial Comments: General: Alert, in no acute distress Head: atraumatic normocephalic. Eyes PERRL, EOMI intact, mucous membranes moist Respiratory: Lungs clear to auscultation bilaterally Cardiovascular: Heart rate regularly irregular Abdominal: Soft without guarding or rebound Extremities: Normal inspection with full range of motion and normal capillary refill Neuroogic: alert and oriented 3, CN II-XII intact, able to ambulate with steady gait Skin: warm dry and intact with normal color Limitations: no limitations Course Vital Signs 09/26/22 09/26/22 09/26/22 10:50 12:45 13:54 Temperature 98.1 F 97.9 F 97.7 F Pulse Rate 71 67 71 Respiratory 18 17 19 Rate Blood Pressure 107/59 154/69 119/109 O2 Sat by Pulse 98 97 95 Oximetry EKG Findings - EKG Comments: EKG Findings:: I interpreted the following: EKG performed at 11:09 rate 67 bpm normal sinus with frequency SVTs bigeminal pattern NC interval 191, QRS duration 133, QT/QTc 429/445 Medical Decision Making - Medical Decision Making Was pt. sent in by a medical professional or institution (, PA, SYSTEMS QA ANALYST, urgent care, hospital, or assisted...) When possible be specific @ -[No] Did you speak to anyone other than the patient for history (EMS, parent, family, police, friend...)? What history was obtained from this source @ -[No] Did you review nursing and triage notes (agree or disagree)? Why? @ -[I reviewed and agree with nursing and triage notes] Were old charts reviewed (outside hosp., previous admission, EMS record, old EKG, old radiological studies, urgent care reports/EKG's, assisted records)? Report findings @ -[No old charts were reviewed] Differential Diagnosis (chest pain, altered mental status, abdominal pain women, abdominal pain men, vaginal bleeding, weakness, fever, dyspnea, syncope, headache, dizziness, GI bleed, back pain, seizure, CVA, palpatations, mental health, musculoskeletal)? @ -[not applicable] EKG interpreted by me (3pts min.). @ -[As above] X-rays interpreted by me (1pt min.). @ -[None done] CT interpreted by me (1pt min.). @ -[None done] U/S interpreted by me (1pt. min.). @ -[None done] What testing was considered but not performed or refused? (CT, X-rays, U/S, labs)? Why? @ -[None] What meds were considered but not given or refused? Why? @ -[None] Did you discuss the management of the patient with other professionals (professionals i.e. , PA, SYSTEMS QA ANALYST, lab, RT, psych nurse, social science teacher, hurl shaker, teacher, ship's officer, embedded case manager)? Give summary @ -[No] Was smoking cessation discussed for >3mins.? @ -[No] Was critical care preformed (if so, how long)? @ -[No] Were there social determinants of health that impacted care today? How? (Homelessness, low income, unemployed, alcoholism, drug addiction, transportation, low edu. Level, literacy, decrease access to med. care, usp, rehab)? @ -[No] Was there de-escalation of care discussed even if they declined (Discuss DNR or withdrawal of care, Hospice)? DNR status @ -[No] What co-morbidities impacted this encounter? (DM, HTN, Smoking, COPD, CAD, Cancer, CVA, ARF, Chemo, Hep., AIDS, mental health diagnosis, sleep apnea, mor bid obesity)? @ -[None] Was patient admitted / discharged? Hospital course, mention meds given and route, prescriptions, significant lab abnormalities, going to OR and other pertinent info. @ -[Discharged. This is an 82-year-old male presents the emergency department with fatigue. Patient had a thorough history and physical exam performed while in the ED. Physical exam is essentially unremarkable. Heart rate regular rate and rhythm, lung sounds clear to auscultation bilaterally abdomen is soft and nontender. Patient had lab work and imaging performed while in the ED. Imaging negative. Lab work was essentially negative. Urinalysis suggestive of UTI.. I discussed the results in detail with the patient verbalized understanding. Patient was given a prescription for Keflex. Return precautions were discussed at length. Discharged in stable condition. Case discussed with NEVA Ac who agrees with plan of care Undiagnosed new problem with uncertain prognosis? @ -[No] Drug Therapy requiring intensive monitoring for toxicity (Heparin, Nitro, Insulin, Cardizem)? @ -[No] Were any procedures done? @ -[No] Diagnosis/symptom? @ -fatigue - UTI Acute, or Chronic, or Acute on Chronic? @ -acute Uncomplicated (without systemic symptoms) or Complicated (systemic symptoms)? @ -uncomplicated Side effects of treatment? @ -[No] Exacerbation, Progression, or Severe Exacerbation? @ -[No] Poses a threat to life or bodily function? How? (Chest pain, USA, MT, pneumonia, PE, COPD, DKA, ARF, appy, cholecystitis, CVA, Diverticulitis, Homicidal, Suicidal, threat to staff... and all critical care pts) @ -low likelihood - Lab Data Result diagrams: 09/26/22 11:27 09/26/22 11:27 Lab Results 09/26/22 09/26/22 09/26/22 Range/Units 11:27 11:27 11:27 WBC 7.0 (3.8-10.6) k/uL RBC 4.37 (4.30-5.90) m/uL Hgb 13.7 (13.0-17.5) gm/dL Hct 42.0 (39.0-53.0) % MCV 96.2 (80.0-100.0) fL MCH 31.4 (25.0-35.0) pg MCHC 32.6 (31.0-37.0) g/dL RDW 13.8 (11.5-15.5) % Plt Count 178 (150-450) k/uL MPV 8.6 Neutrophils % Not Reportable Neutrophils % (Manual) 73 % Lymphocytes % Not Reportable Lymphocytes % (Manual) 16 % Monocytes % Not Reportable Monocytes % (Manual) 10 % Eosinophils % Not Reportable Eosinophils % (Manual) 1 % Basophils % Not Reportable Neutrophils # Not Reportable Neutrophils # (Manual) 5.11 (1.3-7.7) k/uL Lymphocytes # Not Reportable Lymphocytes # (Manual) 1.12 (1.0-4.8) k/uL Monocytes # Not Reportable Monocytes # (Manual) 0.70 (0-1.0) k/uL Eosinophils # Not Reportable Eosinophils # (Manual) 0.07 (0-0.7) k/uL Basophils # Not Reportable Nucleated RBCs 0 (0-0) /100 WBC Manual Slide Review Performed RBC Morphology Normal PT 13.2 H (9.0-12.0) sec INR 1.3 H (<1.2) APTT 27.6 (22.0-30.0) sec Sodium (137-145) mmol/L Potassium (3.5-5.1) mmol/L Chloride (98-107) mmol/L Carbon Dioxide (22-30) mmol/L Anion Gap mmol/L BUN (9-20) mg/dL Creatinine (0.66-1.25) mg/dL Est GFR (CKD-EPI)AfAm (>60 ml/min/1.73 sqM) Est GFR (CKD-EPI)NonAf (>60 ml/min/1.73 sqM) Glucose (74-99) mg/dL POC Glucose (mg/dL) (70-110) mg/dL POC Glu Tooth Cutter Pinion ID Calcium (8.4-10.2) mg/dL Magnesium (1.6-2.3) mg/dL Total Bilirubin (0.2-1.3) mg/dL AST (17-59) U/L ALT (4-49) U/L Alkaline Phosphatase (38-126) U/L Troponin I (0.000-0.034) ng/mL Total Protein (6.3-8.2) g/dL Albumin (3.5-5.0) g/dL Urine Color Yellow Urine Appearance Turbid (Clear) Urine pH 7.0 (5.0-8.0) Ur Specific [place] 1.015 (1.001-1.035) Urine Protein 1+ H (Negative) Urine Glucose (UA) Negative (Negative) Urine Ketones Negative (Negative) Urine Blood Small H (Negative) Urine Nitrite Negative (Negative) Urine Bilirubin Negative (Negative) Urine Urobilinogen <2.0 (<2.0) mg/dL Ur Leukocyte Esterase Large H (Negative) Urine RBC 17 H (0-5) /hpf Urine WBC >182 H (0-5) /hpf Urine WBC Clumps Many H (None) /hpf Urine Bacteria Occasional H (None) /hpf Influenza Type A (PCR) (Not Detectd) Influenza Type B (PCR) (Not Detectd) RSV (PCR) (Not Detectd) SARS-CoV-2 (PCR) (Not Detectd) 09/26/22 09/26/22 09/26/22 Range/Units 11:27 11:27 11:27 WBC (3.8-10.6) k/uL RBC (4.30-5.90) m/uL Hgb (13.0-17.5) gm/dL Hct (39.0-53.0) % MCV (80.0-100.0) fL MCH (25.0-35.0) pg MCHC (31.0-37.0) g/dL RDW (11.5-15.5) % Plt Count (150-450) k/uL MPV Neutrophils % Neutrophils % (Manual) % Lymphocytes % Lymphocytes % (Manual) % Monocytes % Monocytes % (Manual) % Eosinophils % Eosinophils % (Manual) % Basophils % Neutrophils # Neutrophils # (Manual) (1.3-7.7) k/uL Lymphocytes # Lymphocytes # (Manual) (1.0-4.8) k/uL Monocytes # Monocytes # (Manual) (0-1.0) k/uL Eosinophils # Eosinophils # (Manual) (0-0.7) k/uL Basophils # Nucleated RBCs (0-0) /100 WBC Manual Slide Review RBC Morphology PT (9.0-12.0) sec INR (<1.2) APTT (22.0-30.0) sec Sodium 140 (137-145) mmol/L Potassium 3.9 (3.5-5.1) mmol/L Chloride 101 (98-107) mmol/L Carbon Dioxide 27 (22-30) mmol/L Anion Gap 12 mmol/L BUN 33 H (9-20) mg/dL Creatinine 2.12 H (0.66-1.25) mg/dL Est GFR (CKD-EPI)AfAm 32 (>60 ml/min/1.73 sqM) Est GFR (CKD-EPI)NonAf 28 (>60 ml/min/1.73 sqM) Glucose 142 H (74-99) mg/dL POC Glucose (mg/dL) (70-110) mg/dL POC Glu Tooth Cutter Pinion ID Calcium 8.2 L (8.4-10.2) mg/dL Magnesium 2.1 (1.6-2.3) mg/dL Total Bilirubin 1.1 (0.2-1.3) mg/dL AST 24 (17-59) U/L ALT 23 (4-49) U/L Alkaline Phosphatase 106 (38-126) U/L Troponin I 0.013 (0.000-0.034) ng/mL Total Protein 6.2 L (6.3-8.2) g/dL Albumin 3.2 L (3.5-5.0) g/dL Urine Color Urine Appearance (Clear) Urine pH (5.0-8.0) Ur Specific [place] (1.001-1.035) Urine Protein (Negative) Urine Glucose (UA) (Negative) Urine Ketones (Negative) Urine Blood (Negative) Urine Nitrite (Negative) Urine Bilirubin (Negative) Urine Urobilinogen (<2.0) mg/dL Ur Leukocyte Esterase (Negative) Urine RBC (0-5) /hpf Urine WBC (0-5) /hpf Urine WBC Clumps (None) /hpf Urine Bacteria (None) /hpf Influenza Type A (PCR) Not Detected (Not Detectd) Influenza Type B (PCR) Not Detected (Not Detectd) RSV (PCR) Not Detected (Not Detectd) SARS-CoV-2 (PCR) Not Detected (Not Detectd) 09/26/22 Range/Units 11:34 WBC (3.8-10.6) k/uL RBC (4.30-5.90) m/uL Hgb (13.0-17.5) gm/dL Hct (39.0-53.0) % MCV (80.0-100.0) fL MCH (25.0-35.0) pg MCHC (31.0-37.0) g/dL RDW (11.5-15.5) % Plt Count (150-450) k/uL MPV Neutrophils % Neutrophils % (Manual) % Lymphocytes % Lymphocytes % (Manual) % Monocytes % Monocytes % (Manual) % Eosinophils % Eosinophils % (Manual) % Basophils % Neutrophils # Neutrophils # (Manual) (1.3-7.7) k/uL Lymphocytes # Lymphocytes # (Manual) (1.0-4.8) k/uL Monocytes # Monocytes # (Manual) (0-1.0) k/uL Eosinophils # Eosinophils # (Manual) (0-0.7) k/uL Basophils # Nucleated RBCs (0-0) /100 WBC Manual Slide Review RBC Morphology PT (9.0-12.0) sec INR (<1.2) APTT (22.0-30.0) sec Sodium (137-145) mmol/L Potassium (3.5-5.1) mmol/L Chloride (98-107) mmol/L Carbon Dioxide (22-30) mmol/L Anion Gap mmol/L BUN (9-20) mg/dL Creatinine (0.66-1.25) mg/dL Est GFR (CKD-EPI)AfAm (>60 ml/min/1.73 sqM) Est GFR (CKD-EPI)NonAf (>60 ml/min/1.73 sqM) Glucose (74-99) mg/dL POC Glucose (mg/dL) 138 H (70-110) mg/dL POC Glu Tooth Cutter Pinion ID Eyad Cartagena Calcium (8.4-10.2) mg/dL Magnesium (1.6-2.3) mg/dL Total Bilirubin (0.2-1.3) mg/dL AST (17-59) U/L ALT (4-49) U/L Alkaline Phosphatase (38-126) U/L Troponin I (0.000-0.034) ng/mL Total Protein (6.3-8.2) g/dL Albumin (3.5-5.0) g/dL Urine Color Urine Appearance (Clear) Urine pH (5.0-8.0) Ur Specific [place] (1.001-1.035) Urine Protein (Negative) Urine Glucose (UA) (Negative) Urine Ketones (Negative) Urine Blood (Negative) Urine Nitrite (Negative) Urine Bilirubin (Negative) Urine Urobilinogen (<2.0) mg/dL Ur Leukocyte Esterase (Negative) Urine RBC (0-5) /hpf Urine WBC (0-5) /hpf Urine WBC Clumps (None) /hpf Urine Bacteria (None) /hpf Influenza Type A (PCR) (Not Detectd) Influenza Type B (PCR) (Not Detectd) RSV (PCR) (Not Detectd) SARS-CoV-2 (PCR) (Not Detectd) Disposition Clinical Impression: Urinary tract infection, JOVANI (acute kidney injury), Weakness Disposition: ADMITTED IP TO THIS HOSP Condition: Fair Prescriptions: Cephalexin [Keflex] 500 mg PO Q6HR #40 cap Referrals: Sheldon Li DO [Primary Care Provider] - 1-2 days Time of Disposition: 13:02
[2022-09-26] MEDS ORDERED: SODIUM CHLORIDE 0.9% 1,000 ML IV ONE (12:58)
[2022-09-26 13:00] LABS: Eosinophils # (M) 0.07 k/uL (0-0.7); Lymphocytes # (M) 1.12 k/uL (1.0-4.8); Neutrophils # (M) 5.11 k/uL (1.3-7.7); Neutrophils % (M) 73 %; Nucleated Red Blood Cells 0 /100 WBC (0-0); RBC Morphology Normal; Total Cells Counted 100
[2022-09-26 13:54] VITALS: BP 119/109; PULSE 71; RESP 19; TEMP 97.7
[2022-09-26] MEDS ORDERED: CEPHALEXIN 500 MG CAP PO STA (14:07)
== END 2022-09-26 14:33 | disposition other institution (70) ==
LOC: EC 10:46
DX: N39.0 Urinary tract infection, site not specified (principal); N17.9 Acute kidney failure, unspecified; R53.1 Weakness; I67.82 Cerebral ischemia; E11.9 Type 2 diabetes mellitus without complications; Z20.822 Contact with and (suspected) exposure to COVID-19; Z86.73 Personal history of transient ischemic attack (TIA), and cerebral infarction without residual deficits; Z91.041 Radiographic dye allergy status
CPT/HCPCS: 36415; 51798; 70450; 71046; 80053; 81001; 83735; 84484; 85025; 85610; 85730; 87086; 87636; 93005; 96360; 99285

== ENCOUNTER 2022-10-07 13:06 | Emergency (ER) | payer MEDICARE ==
[2022-10-07 13:17] VITALS: TEMP 97.7
--- NOTE | 2022-10-07 13:56 | ED ---
General Adult HPI - General Chief complaint: Syncope Stated complaint: dizziness Time Seen by Provider: 10/07/22 13:19 Source: patient Mode of arrival: wheelchair Limitations: no limitations - History of Present Illness Initial comments: Dictation was produced using [employer] dictation software. please excuse any grammatical, word or spelling errors. Chief Complaint: 82-year-old male presents emergency Department with syncopal episode History of Present Illness: Patient is 82-year-old male presents after passing out today. Patient states he woke this morning all final to the bathroom. He had a movement. He stood up and went back to the wrong when all of a sudden he felt lightheaded and passed out. Apparently there were no witnesses. He is unclear patient lost consciousness. at bedside states that probably just fell and if he was unconscious it was a brief period. Patient states that he is having neck pain. He states that the neck pain have been prior to the syncopal episode. Patient feels fine at the moment. No other complaints upon The ROS documented in this emergency department record has been reviewed and confirmed by me. Those systems with pertinent positive or negative responses have been documented in the HPI. All other systems are other negative and/or noncontributory. - Related Data Home Medications Medication Instructions Recorded Confirmed Alfuzosin HCl [Alfuzosin HCl ER] 10 mg PO HS 08/08/22 09/26/22 Ascorbic Acid [Vitamin C] 1,000 mg PO HS 08/08/22 09/26/22 Calcium Carb/Mag Ox/Zinc Sulf 1 tab PO HS 08/08/22 09/26/22 [Xmg-Ile-Nwnp 334-134-5 mg Tab] Cholecalciferol [Vitamin D3 (25 25 mcg PO HS 08/08/22 09/26/22 Mcg = 1000 Iu)] Mv-Mn/Om3/Dha/Epa/Fish/Lut/Hortencia 1 cap PO HS 08/08/22 09/26/22 [Ocuvite Adult 50 Plus Softgel] Losartan Potassium [Cozaar] 50 mg PO DAILY 09/26/22 09/26/22 Metoprolol Tartrate [Lopressor] 25 mg PO BID 09/26/22 09/26/22 Previous Rx's Medication Instructions Recorded Apixaban [Eliquis] 5 mg PO BID #60 tab 08/09/22 Atorvastatin [Lipitor] 40 mg PO DAILY #30 tablet 08/10/22 Famotidine [Pepcid] 20 mg PO BID #60 tablet 08/10/22 Furosemide [Lasix] 20 mg PO DAILY #30 tab 08/10/22 Cephalexin [Keflex] 500 mg PO Q6HR #40 cap 09/26/22 Allergies Allergy/AdvReac Type Severity Reaction Status Date / Time iodine AdvReac Nausea & Verified 09/26/22 12:32 Vomiting Review of Systems ROS Statement: Those systems with pertinent positive or pertinent negative responses have been documented in the HPI. ROS Other: All systems not noted in ROS Statement are negative. Past Medical History Past Medical History: CVA/TIA, Diabetes Mellitus Additional Past Medical History / Comment(s): Type 2 diabetic History of Any Multi-Drug Resistant Organisms: None Reported Past Surgical History: Appendectomy, Prostate Surgery Additional Past Surgical History / Comment(s): prostate Past Anesthesia/Blood Transfusion Reactions: No Reported Reaction Past Psychological History: No Psychological Hx Reported Smoking Status: Never smoker Past Alcohol Use History: Rare Past Drug Use History: None Reported General Exam - General Exam Comments Initial Comments: PHYSICAL EXAM: General Impression: Alert and oriented x3, not in acute distress HEENT: Normocephalic atraumatic, extra-ocular movements intact, pupils equal and reactive to light bilaterally, mucous membranes moist. Cardiovascular: Heart regular rate and rhythm Chest: Able to complete full sentences, no retractions, no tachypnea Abdomen: abdomen soft, non-tender, non-distended, no organomegaly Musculoskeletal: Pulses present and equal in all extremities, no peripheral edema Motor: no focal deficits noted Neurological: CN II-XII grossly intact, no focal motor or sensory deficits noted Skin: Intact with no visualized rashes Psych: Normal affect and mood Limitations: no limitations Course Vital Signs 10/07/22 13:14 Temperature 97.7 F Pulse Rate 63 Respiratory 16 Rate Blood Pressure 105/57 O2 Sat by Pulse 97 Oximetry Medical Decision Making - Medical Decision Making Was pt. sent in by a medical professional or institution (, PA, PHYSICAL SECURITY ENGINEER, urgent care, hospital, or half-way...) When possible be specific @ -[No] Did you speak to anyone other than the patient for history (EMS, parent, family, police, friend...)? What history was obtained from this source @ - at the bedside states that he passed out Did you review nursing and triage notes (agree or disagree)? Why? @ -[I reviewed and agree with nursing and triage notes] Were old charts reviewed (outside hosp., previous admission, EMS record, old EKG, old radiological studies, urgent care reports/EKG's, half-way records)? Report findings @ -Echocardiogram from July of this year was reviewed showing impaired LV function of 35% Differential Diagnosis (chest pain, altered mental status, abdominal pain women, abdominal pain men, vaginal bleeding, musculoskeletal, weakness, fever, dyspnea, syncope, headache, dizziness, GI bleed, back pain, seizure, CVA, palpatations, mental health)? @ -Differential Syncope: Valvular disease, hypertrophic cardiomyopathy, pulmonary embolism, tamponade, tachycardia, bradycardia, AR, hypovolemia, hemorrhage, dissection, anemia, intracranial hemorrhage, seizure, hypoglycemia, carbon monoxide poisoning, this is not meant to be an all-inclusive list. EKG interpreted by me (3pts min.). @ -My EKG interpretation: Ventricular rate 60, sinus rhythm,. 151, QRS 1:30, QTc 453. No AK prolongation, no QTC prolongation, no ST or T-wave changes noted. EKG compared to 09/26/2022 showing no changes. Overall, this EKG is unremarkable X-rays interpreted by me (1pt min.). @ -[None done] CT interpreted by me (1pt min.). @ -[None done] U/S interpreted by me (1pt. min.). @ -[None done] What testing was considered but not performed or refused? (CT, X-rays, U/S, labs)? Why? @ -[None] What meds were considered but not given or refused? Why? @ -[None] Did you discuss the management of the patient with other professionals (professionals i.e. Dr., PA, PHYSICAL SECURITY ENGINEER, lab, RT, psych nurse, social sciences lecturer, apartment leasing specialist, teacher, security flex utility officer, case investigator)? Give summary @ -[No] Was smoking cessation discussed for >3mins.? @ -[No] Was critical care preformed (if so, how long)? @ -[No] Were there social determinants of health that impacted care today? How? (Daryl elessness, low income, unemployed, alcoholism, drug addiction, transportation, low edu. Level, literacy, decrease access to med. care, long term, rehab)? @ -[No] Was there de-escalation of care discussed even if they declined (Discuss DNR or withdrawal of care, Hospice)? DNR status @ -[No] What co-morbidities impacted this encounter? (DM, HTN, Smoking, COPD, CAD, Cancer, CVA, ARF, Chemo, Hep., AIDS, mental health diagnosis, sleep apnea, morbid obesity)? @ -History of impaired LV function Was patient admitted / discharged? Hospital course, mention meds given and route, prescriptions, significant lab abnormalities, going to OR and other pertinent info. @ -82-year-old male presents to the emergency department after a syncopal episode describes that he stood up fast and fell. Patient was admitted to the hospital in July diagnosed with A. fib. Vital signs upon arrival are within acceptable limits. Patient's will. The bedside has no symptoms of traumatic injury. Orthostatic vital signs are within acceptable limits. He does have some evidence of acute kidney injury though mild. He states that he should follow-up with his primary care doctor for this. His physician options were discussed. Recommend that he be admitted due to his history of cardiomyopathy. He refuses and would rather be discharged. Patient understands the risk. Return precautions discussed Undiagnosed new problem with uncertain prognosis? @ -[No] Drug Therapy requiring intensive monitoring for toxicity (Heparin, Nitro, Insulin, Cardizem)? @ -[No] Were any procedures done? @ -[No] Diagnosis/symptom? Acute, or Chronic, or Acute on Chronic? Uncomplicated (without systemic symptoms) or Complicated (systemic symptoms)? @ -1. Acute syncope Side effects of treatment? @ -[No] Exacerbation, Progression, or Severe Exacerbation? @ -[No] Poses a threat to life or bodily function? How? (Chest pain, [place], [place], pneumonia, PE, COPD, DKA, ARF, appy, cholecystitis, CVA, Diverticulitis, Homicidal, Suicidal, threat to staff... and all critical care pts) @ -yes - Lab Data Result diagrams: 10/07/22 14:01 10/07/22 14:01 Lab Results 10/07/22 10/07/22 10/07/22 Range/Units 14:01 14: 14: WBC 7.4 (3.8-10.6) k/uL RBC 4.68 (4.30-5.90) m/uL Hgb 14.5 (13.0-17.5) gm/dL Hct 45.2 (39.0-53.0) % MCV 96.5 (80.0-100.0) fL MCH 31.1 (25.0-35.0) pg MCHC 32.2 (31.0-37.0) g/dL RDW 13.5 (11.5-15.5) % Plt Count 246 (150-450) k/uL MPV 7.9 Neutrophils % 79 % Lymphocytes % 12 % Monocytes % 6 % Eosinophils % 1 % Basophils % 0 % Neutrophils # 5.8 (1.3-7.7) k/uL Lymphocytes # 0.9 L (1.0-4.8) k/uL Monocytes # 0.5 (0-1.0) k/uL Eosinophils # 0.1 (0-0.7) k/uL Basophils # 0.0 (0-0.2) k/uL Sodium 139 (137-145) mmol/L Potassium 4.1 (3.5-5.1) mmol/L Chloride 101 (98-107) mmol/L Carbon Dioxide 34 H (22-30) mmol/L Anion Gap 4 mmol/L BUN 30 H (9-20) mg/dL Creatinine 2.17 H (0.66-1.25) mg/dL Est GFR (CKD-EPI)AfAm 31 (>60 ml/min/1.73 sqM) Est GFR (CKD-EPI)NonAf 27 (>60 ml/min/1.73 sqM) Glucose 140 H (74-99) mg/dL Calcium 8.7 (8.4-10.2) mg/dL Magnesium 2.1 (1.6-2.3) mg/dL Troponin I <0.012 (0.000-0.034) ng/mL Disposition Clinical Impression: Syncope Disposition: HOME SELF-CARE Condition: Fair Instructions (If sedation given, give patient instructions): Syncope (ED) Is patient prescribed a controlled substance at d/c from ED?: No Referrals: Sheldon Li DO [Primary Care Provider] - 1-2 days Time of Disposition: 15:43
[2022-10-07 14:11] LABS: Basophils % (A) 0 %; Eosinophils # (A) 0.1 k/uL (0-0.7); Eosinophils % (A) 1 %; HCT 45.2 % (39.0-53.0); HGB 14.5 gm/dL (13.0-17.5); Lymphocytes # (A) 0.9 k/uL (1.0-4.8); Lymphocytes % (A) 12 %; MCH 31.1 pg (25.0-35.0); MCHC 32.2 g/dL (31.0-37.0); MCV 96.5 fL (80.0-100.0); Mean Platelet Volume 7.9; Monocytes # (A) 0.5 k/uL (0-1.0); Monocytes % (A) 6 %; Neutrophils # (A) 5.8 k/uL (1.3-7.7); Neutrophils % (A) 79 %; Platelet Count 246 k/uL (150-450); RBC 4.68 m/uL (4.30-5.90); RDW 13.5 % (11.5-15.5); WBC 7.4 k/uL (3.8-10.6)
[2022-10-07 14:29] LABS: Calcium 8.7 mg/dL (8.4-10.2); Magnesium 2.1 mg/dL (1.6-2.3); Potassium 4.1 mmol/L (3.5-5.1)
--- NOTE | 2022-10-07 14:31 | CT ---
EXAMINATION TYPE: CT brain abhayine wo con DATE OF EXAM: 10/07/2022 COMPARISON: 09/26/2022 HISTORY: Syncope CT DLP: 1538.[address] of the brain was performed. The ventricles, basal cisterns and sulci overlying the cerebral convexities demonstrate mild enlargem ent. There is no evidence for intracranial hemorrhage or sulcal effacement. There is decreased attenuatio n about the periventricular white matter and deep white matter of both cerebral hemispheres, compatib le with chronic small vessel ischemia. Secretions are again noted of the basal ganglia bilaterally a s well as the cerebellum. Remote insult small in size left occipital lobe. No mass effects are seen. If symptoms persist consider MRI. Osseous calvarium is intact. IMPRESSION: 1. Age related atrophic and chronic small vessel ischemic change without acute intracranial process seen at this time. CT Cervical Spine: Unenhanced CT of the cervical spine was performed with bone and soft tissue window settings submitted . Coronal and sagittal reconstruction is obtained. There is normal alignment and prevertebral soft tissues. No evidence for acute cervical fracture . Scattered degenerative disc disease and spondylosis. Biapical scarring. IMPRESSION: 1. No evidence for acute fracture or subluxation of the cervical spine.
[2022-10-07 16:08] VITALS: BP 128/62; PULSE 62; RESP 18
== END 2022-10-07 16:08 | disposition home or self-care (01) ==
LOC: EC 13:06
DX: I67.82 Cerebral ischemia (principal); J98.4 Other disorders of lung; R55 Syncope and collapse; E11.9 Type 2 diabetes mellitus without complications; Z79.899 Other long term (current) drug therapy; Z88.8 Allergy status to other drugs, medicaments and biological substances
CPT/HCPCS: 36415; 70450; 72125; 80048; 83735; 84484; 85025; 93005; 99284

== ENCOUNTER 2023-05-28 14:49 | Inpatient (IN) | payer MEDICARE ==
--- NOTE | 2023-05-28 15:09 | ED ---
General Adult HPI - General Stated complaint: SOB Time Seen by Provider: 05/28/23 14:57 Source: patient, EMS, RN notes reviewed Mode of arrival: EMS Limitations: no limitations - History of Present Illness Initial comments: 83-year-old male presents emergency Department from cardiology's office which complaint of shortness of breath. Patient states she's been having increasing dyspnea since [place] Patient is been having increasing difficulty breathing, leg swelling. He states that extremely leg swelling, along with palpitations. Patient does have a history of A. fib. Patient sent over from [facility] for A. fib RVR. Patient denies any chest pain - Related Data Home Medications Medication Instructions Recorded Confirmed Alfuzosin HCl [Alfuzosin HCl ER] 10 mg PO HS 08/08/22 05/28/23 Ascorbic Acid [Vitamin C] 1,000 mg PO HS 08/08/22 05/28/23 Calcium Carb/Mag Ox/Zinc Sulf 1 tab PO HS 08/08/22 05/28/23 [Qgh-Lcg-Ujhh 334-134-5 mg Tab] Cholecalciferol [Vitamin D3 (25 25 mcg PO HS 08/08/22 05/28/23 Mcg = 1000 Iu)] Mv-Mn/Om3/Dha/Epa/Fish/Lut/Hortencia 1 cap PO HS 08/08/22 05/28/23 [Ocuvite Adult 50 Plus Softgel] Losartan Potassium [Cozaar] 50 mg PO DAILY 09/26/22 05/28/23 Metoprolol Tartrate [Lopressor] 25 mg PO DAILY 09/26/22 05/28/23 Apixaban [Eliquis] 5 mg PO DAILY 05/28/23 05/28/23 Multivit-Minerals/Folic Acid 80 mcg PO HS 05/28/23 05/28/23 [Centrum Adult 50 Plus Gummy] Allergies Allergy/AdvReac Type Severity Reaction Status Date / Time iodine AdvReac Nausea & Verified 05/28/23 17:46 Vomiting Review of Systems ROS Statement: Those systems with pertinent positive or pertinent negative responses have been documented in the HPI. ROS Other: All systems not noted in ROS Statement are negative. Past Medical History Past Medical History: CVA/TIA, Diabetes Mellitus Additional Past Medical History / Comment(s): Type 2 diabetic History of Any Multi-Drug Resistant Organisms: None Reported Past Surgical History: Appendectomy, Prostate Surgery Additional Past Surgical History / Comment(s): prostate Past Anesthesia/Blood Transfusion Reactions: No Reported Reaction Past Psychological History: No Psychological Hx Reported Smoking Status: Never smoker Past Alcohol Use History: Rare Past Drug Use History: None Reported General Exam Limitations: no limitations General appearance: alert, in no apparent distress Head exam: Present: atraumatic, normocephalic, normal inspection Neck exam: Present: normal inspection. Absent: tenderness, meningismus, lymphadenopathy Respiratory exam: Present: normal lung sounds bilaterally. Absent: respiratory distress, wheezes, rales, rhonchi, stridor Cardiovascular Exam: Present: tachycardia, irregular rhythm, normal heart sounds. Absent: regular rate, normal rhythm, systolic murmur, diastolic murmur, rubs, gallop, clicks Extremities exam: Present: pedal edema Neurological exam: Present: alert, oriented X3 Course Vital Signs 05/28/23 05/28/23 05/28/23 14:50 16:50 17:00 Temperature 97.4 F L Pulse Rate 137 H 140 H 137 H Pulse Rate [ Sales Designer ] Respiratory 22 20 20 Rate Blood Pressure 152/131 128/79 104/79 Blood Pressure [Supine] O2 Sat by Pulse 100 100 98 Oximetry 05/28/23 05/28/23 05/28/23 17:08 17:22 20:00 Temperature Pulse Rate 112 H 104 H Pulse Rate [ Sales Designer ] Respiratory 18 18 16 Rate Blood Pressure 104/79 99/70 Blood Pressure [Supine] O2 Sat by Pulse 99 100 Oximetry 05/28/23 05/29/23 05/29/23 21:08 00:00 04:00 Temperature 97.9 F 97.9 F Pulse Rate 93 Pulse Rate [ 91 80 Sales Designer ] Respiratory 15 18 19 Rate Blood Pressure 88/57 Blood Pressure 105/76 100/79 [Supine] O2 Sat by Pulse 99 99 98 Oximetry EKG Findings - EKG Comments: EKG Findings:: EKG performed at 15:11 A. fib with RVR rate of 124 QRS 129 QT/QTC 320/393 - EKG Results: EKG: interpreted by JAJA Medical Decision Making - Medical Decision Making Was pt. sent in by a medical professional or institution (, PA, MACHINE JOINT CUTTER, urgent care, hospital, or group home...) When possible be specific @ -Cardiology Did you speak to anyone other than the patient for history (EMS, parent, family, police, friend...)? What history was obtained from this source @ -No Did you review nursing and triage notes (agree or disagree)? Why? @ -I reviewed and agree with nursing and triage notes Were old charts reviewed (outside hosp., previous admission, EMS record, old EKG, old radiological studies, urgent care reports/EKG's, group home records)? Report findings @ -No old charts were reviewed Differential Diagnosis (chest pain, altered mental status, abdominal pain women, abdominal pain men, vaginal bleeding, weakness, fever, dyspnea, syncope, headache, dizziness, GI bleed, back pain, seizure, CVA, palpatations, mental health, musculoskeletal)? @ -Differential Dyspnea: Coronary syndrome, arrhythmia, tamponade, asthma, COPD, pulmonary embolism, pneumonia, pneumothorax, pulmonary effusion, anaphylaxis, diabetic ketoacidosis, flailed chest, pulmonary contusion, diaphragmatic rupture, anemia, neuromuscular, this is not meant to be an all-inclusive list. EKG interpreted by me (3pts min.). @ -As above X-rays interpreted by me (1pt min.). @ -Chest x-ray shows pulmonary edema CT interpreted by me (1pt min.). @ -None done U/S interpreted by me (1pt. min.). @ -None done What testing was considered but not performed or refused? (CT, X-rays, U/S, labs)? Why? @ -None What meds were considered but not given or refused? Why? @ -None Did you discuss the management of the patient with other professionals (professionals i.e. , PA, MACHINE JOINT CUTTER, lab, RT, psych nurse, social media executive, steam setter, teacher, customer service security officer, manager of case)? Give summary @ -Dr. Shea for admission secondary to A. fib RVR with CHF changes Was smoking cessation discussed for >3mins.? @ -No Was critical care preformed (if so, how long)? @ -35 Were there social determinants of health that impacted care today? How? (Homelessness, low income, unemployed, alcoholism, drug addiction, transportation, low edu. Level, literacy, decrease access to med. care, penitentiary, rehab)? @ -No Was there de-escalation of care discussed even if they declined (Discuss DNR or withdrawal of care, Hospice)? DNR status @ -No What co-morbidities impacted this encounter? (DM, HTN, Smoking, COPD, CAD, Cancer, CVA, ARF, Chemo, Hep., AIDS, mental health diagnosis, sleep apnea, morbid obesity)? @ -A. fib, CHF Was patient admitted / discharged? Hospital course, mention meds given and route, prescriptions, significant lab abnormalities, going to OR and other pertinent info. @ -Admitted patient's found to have A. fib RVR, patient was started on Cardizem patient also is having acute CHF changes patient was given a dose of Lasix will be admitted for further workup and management Undiagnosed new problem with uncertain prognosis? @ -No Drug Therapy requiring intensive monitoring for toxicity (Heparin, Nitro, Insulin, Cardizem)? @ -Cardizem] Were any procedures done? @ -No Diagnosis/symptom? @ -A. fib RVR, CHF Acute, or Chronic, or Acute on Chronic? @ -[Acute Uncomplicated (without systemic symptoms) or Complicated (systemic symptoms)? @ -Complicated Side effects of treatment? @ -No Exacerbation, Progression, or Severe Exacerbation? @ -Exacerbation Poses a threat to life or bodily function? How? (Chest pain, [place], [place], pneumonia, PE, COPD, DKA, ARF, appy, cholecystitis, CVA, Diverticulitis, Homicidal, Suicidal, threat to staff... and all critical care pts) @ -yes dysrhythmia, CHF exacerbation - Lab Data Result diagrams: 05/28/23 15:52 05/28/23 15:52 Lab Results 05/28/23 05/28/23 05/28/23 Range/Units 15:52 15:52 15:52 WBC 6.6 (3.8-10.6) k/uL RBC 4.04 L (4.30-5.90) m/uL Hgb 12.8 L (13.0-17.5) gm/dL Hct 40.6 (39.0-53.0) % MCV 100.6 H (80.0-100.0) fL MCH 31.8 (25.0-35.0) pg MCHC 31.6 (31.0-37.0) g/dL RDW 14.0 (11.5-15.5) % Plt Count 150 (150-450) k/uL MPV 8.3 Neutrophils % 72 % Lymphocytes % 14 % Monocytes % 9 % Eosinophils % 2 % Basophils % 0 % Neutrophils # 4.8 (1.3-7.7) k/uL Lymphocytes # 1.0 (1.0-4.8) k/uL Monocytes # 0.6 (0-1.0) k/uL Eosinophils # 0.1 (0-0.7) k/uL Basophils # 0.0 (0-0.2) k/uL Hypochromasia Slight Macrocytosis Slight PT 14.8 H (10.0-12.5) sec INR 1.4 H (<1.2) APTT 29.1 (22.0-30.0) sec Sodium 141 (137-145) mmol/L Potassium 4.3 (3.5-5.1) mmol/L Chloride 106 (98-107) mmol/L Carbon Dioxide 25 (22-30) mmol/L Anion Gap 10 mmol/L BUN 36 H (9-20) mg/dL Creatinine 1.85 H (0.66-1.25) mg/dL Est GFR (CKD-EPI)AfAm 38 (>60 ml/min/1.73 sqM) Est GFR (CKD-EPI)NonAf 33 (>60 ml/min/1.73 sqM) Glucose 118 H (74-99) mg/dL Calcium 9.2 (8.4-10.2) mg/dL Magnesium 2.1 (1.6-2.3) mg/dL Total Bilirubin 1.1 (0.2-1.3) mg/dL AST 36 (17-59) U/L ALT 32 (4-49) U/L Alkaline Phosphatase 105 (38-126) U/L Troponin I (0.000-0.034) ng/mL NT-Pro-B Natriuret Pep 4000 pg/mL Total Protein 6.6 (6.3-8.2) g/dL Albumin 3.5 (3.5-5.0) g/dL 05/28/23 Range/Units 15:52 WBC (3.8-10.6) k/uL RBC (4.30-5.90) m/uL Hgb (13.0-17.5) gm/dL Hct (39.0-53.0) % MCV (80.0-100.0) fL MCH (25.0-35.0) pg MCHC (31.0-37.0) g/dL RDW (11.5-15.5) % Plt Count (150-450) k/uL MPV Neutrophils % % Lymphocytes % % Monocytes % % Eosinophils % % Basophils % % Neutrophils # (1.3-7.7) k/uL Lymphocytes # (1.0-4.8) k/uL Monocytes # (0-1.0) k/uL Eosinophils # (0-0.7) k/uL Basophils # (0-0.2) k/uL Hypochromasia Macrocytosis PT (10.0-12.5) sec INR (<1.2) APTT (22.0-30.0) sec Sodium (137-145) mmol/L Potassium (3.5-5.1) mmol/L Chloride (98-107) mmol/L Carbon Dioxide (22-30) mmol/L Anion Gap mmol/L BUN (9-20) mg/dL Creatinine (0.66-1.25) mg/dL Est GFR (CKD-EPI)AfAm (>60 ml/min/1.73 sqM) Est GFR (CKD-EPI)NonAf (>60 ml/min/1.73 sqM) Glucose (74-99) mg/dL Calcium (8.4-10.2) mg/dL Magnesium (1.6-2.3) mg/dL Total Bilirubin (0.2-1.3) mg/dL AST (17-59) U/L ALT (4-49) U/L Alkaline Phosphatase (38-126) U/L Troponin I <0.012 (0.000-0.034) ng/mL NT-Pro-B Natriuret Pep pg/mL Total Protein (6.3-8.2) g/dL Albumin (3.5-5.0) g/dL Critical Care Time Critical Care Time: Yes Total Critical Care Time: 35 Disposition Clinical Impression: Atrial fibrillation with RVR, Congestive heart failure Disposition: ADMITTED IP TO THIS HOSP Condition: Fair Time of Disposition: 15:52
[2023-05-28] MEDS ORDERED: DILTIAZEM DRIP BOLUS FROM BAG 1 MG SOLN IV ONE (15:13)
--- NOTE | 2023-05-28 15:44 | XR ---
EXAMINATION TYPE: XR chest 2V DATE OF EXAM: 05/28/2023 3:39 PM CLINICAL INDICATION:Male, 83 years old with history of Chest Pain; [facility] COMPARISON: Chest radiographs from 09/26/2022. TECHNIQUE: XR chest 2V Frontal and lateral views of the chest. FINDINGS: Lungs/Pleura: No evidence of focal consolidation or pneumothorax. Blunting of the costophrenic angles is present. Pulmonary vascularity: Pulmonary vascular congestion. Heart/mediastinum: Cardiomediastinal silhouette is enlarged and stable. Musculoskeletal: No acute osseous pathology. Other findings: None Lines/Tubes: IMPRESSION: Cardiomegaly, pulmonary vascular congestion and bilateral pleural effusions. Correlate with BNP for c ongestive heart failure.
[2023-05-28] MEDS ORDERED: DILTIAZEM 125 MG in SODIUM CHLORIDE 0.9% 100 ML IV SCH (16:00)
[2023-05-28 16:07] LABS: Basophils % (A) 0 %; Eosinophils # (A) 0.1 k/uL (0-0.7); Eosinophils % (A) 2 %; HCT 40.6 % (39.0-53.0); HGB 12.8 gm/dL (13.0-17.5); Hypochromasia Slight; Lymphocytes % (A) 14 %; MCH 31.8 pg (25.0-35.0); MCHC 31.6 g/dL (31.0-37.0); MCV 100.6 fL (80.0-100.0); Macrocytosis Slight; Mean Platelet Volume 8.3; Monocytes # (A) 0.6 k/uL (0-1.0); Monocytes % (A) 9 %; Neutrophils # (A) 4.8 k/uL (1.3-7.7); Neutrophils % (A) 72 %; Platelet Count 150 k/uL (150-450); RBC 4.04 m/uL (4.30-5.90); WBC 6.6 k/uL (3.8-10.6)
[2023-05-28 16:15] LABS: INR 1.4 (<1.2); Partial Thromboplastin Time 29.1 sec (22.0-30.0); Prothrombin Time 14.8 sec (10.0-12.5)
[2023-05-28] MEDS ORDERED: FUROSEMIDE 10 MG/ML 4 ML VIAL IV STA (16:32)
[2023-05-28] MEDS ORDERED: NITROGLYCERIN SL TABS 0.4 MG TAB SUBLINGUAL PRN (16:32)
[2023-05-28 16:40] LABS: ALT 32 U/L (4-49); AST 36 U/L (17-59); African American GFR (CKD) 38 (>60 ml/min/1.73 sqM); Albumin 3.5 g/dL (3.5-5.0); Alkaline Phosphatase 105 U/L (38-126); Anion Gap 10 mmol/L; Blood Urea Nitrogen 36 mg/dL (9-20); Calcium 9.2 mg/dL (8.4-10.2); Carbon Dioxide 25 mmol/L (22-30); Chloride 106 mmol/L (98-107); Glucose 118 mg/dL (74-99); Magnesium 2.1 mg/dL (1.6-2.3); Non-African American GFR(CKD) 33 (>60 ml/min/1.73 sqM); Potassium 4.3 mmol/L (3.5-5.1); Sodium 141 mmol/L (137-145); Total Bilirubin 1.1 mg/dL (0.2-1.3); Total Protein 6.6 g/dL (6.3-8.2)
[2023-05-28 16:45] LABS: NT-Pro-B-Type Natriuretic Pept 4000 pg/mL
[2023-05-28] MEDS: APIXABAN 2.5 MG TABLET PO SCH (20:58)
[2023-05-28] MEDS ORDERED: FAMOTIDINE 20 MG TAB PO SCH ×2 (21:00)
[2023-05-29] MEDS: APIXABAN 2.5 MG TABLET PO SCH ×2 (08:38→20:24)
[2023-05-29] MEDS ORDERED: METOPROLOL TARTRATE 25 MG TAB PO STA ×2 (08:49→17:59)
[2023-05-29] MEDS ORDERED: ASPIRIN 325 MG TAB PO SCH (09:00)
[2023-05-29] MEDS ORDERED: LOSARTAN 50 MG TAB PO SCH (09:00)
[2023-05-29] MEDS ORDERED: METOPROLOL TARTRATE 25 MG TAB PO SCH ×2 (09:00→21:00)
[2023-05-29] MEDS ORDERED: ATORVASTATIN 40 MG TAB PO SCH (09:00)
[2023-05-29] MEDS: FUROSEMIDE 10 MG/ML 4 ML VIAL IV SCH ×2 (09:39→20:23)
[2023-05-29 11:54] LABS: Glucose,Whole Blood 143 mg/dL (70-110)
--- NOTE | 2023-05-29 11:54 | P.CRDCN ---
History of Present Illness History of present illness: HISTORY OF PRESENT ILLNESS: This is a 83-year-old male with a past medical history significant for congestive heart failure, atrial fibrillation, hypertension, hyperlipidemia, nonischemic cardiac myopathy, COPD, and former nicotine dependence. Patient follows in the office with Dr. Castillo. We have been asked to see the patient in consultation for congestive heart failure and atrial fibrillation. Patient examined at the bedside in the emergency room. Patient presented to the cardiology office yesterday for a routine visit. The patient was very short of breath and tachypneic and he was brought to the hospital for further evaluation. The patient was found to be in acute congestive heart failure. He was given a one-time dose of IV Lasix per the ER physician. He was also found to be in A. fib with RVR. He was started on IV Cardizem. This morning he continues to report shortness of breath. He denies any chest pain or pressure. Telemetry reveals atrial fibrillation with a heart rate around 110. * EKG reveals atrial fibrillation with RVR * Chest xray cardiomegaly, pulmonary vascular congestion, and bilateral pleural effusions. * Laboratory data: Troponin negative 3. ProBNP 4000. * Most recent echocardiogram obtained in July 2022 revealed ejection fraction 40%, overall global decrease in contractility noted. [place] is hypokinetic. Diastolic dysfunction. Mild biatrial dilatation. No significant pulmonary hypertension * Cardiac catheterization history: Unknown REVIEW OF SYSTEMS: At the time of my exam: CONSTITUTIONAL: Denies fever or chills. HEENT: Denies blurred vision, vision changes, or eye pain. Denies hemoptysis CARDIOVASCULAR: Denies chest pain. Denies orthopnea. Denies PND. Denies palpitations RESPIRATORY: + shortness of breath. GASTROINTESTINAL: Denies abdominal pain. Denies nausea or vomiting. HEMATOLOGIC: Denies bleeding disorders. GENITOURINARY: Denies any blood in urine. SKIN: Denies pruitis. Denies rash. PHYSICAL EXAM: VITAL SIGNS: Reviewed. GENERAL: Well-developed in no acute distress. HEENT: Head is normocephalic. Pupils are equal, round. Sclerae anicteric. Mucous membranes of the mouth are moist. Neck supple. No JVD or thyromegaly LUNGS: Respirations even and unlabored. Lungs diminished with bibasilar crackles and expiratory wheezing HEART: Mildly tachycardic. Irregular rate and rhythm. S1 and S2 heard. ABDOMEN: Soft. Nondistended. Nontender. EXTREMITIES: Normal range of motion. No clubbing or cyanosis. Peripheral pulses intact. 2+ bilateral lower extremity edema NEUROLOGIC: Awake and alert. Oriented x 3. ASSESSMENT: Shortness of breath Acute on chronic heart failure with reduced ejection fraction, 40% Paroxysmal atrial fibrillation with mild RVR Nonischemic card he myopathy Hypertension Hyperlipidemia COPD Former nicotine dependence PLAN: Obtain 2-D echo to assess cardiac structure and function Resume home cardiac medications Increase metoprolol to twice a day dosing Continue telemetry monitoring Discontinue IV Cardizem Begin Lasix 40 mg IV every 12 hours Daily weights, accurate I&O, and monitoring of kidney function Further recommendations pending patient's course Nurse practitioner note has been reviewed by physician. Signing provider agrees with the documented findings, assessment, and plan of care. Past Medical History Past Medical History: CVA/TIA, Diabetes Mellitus Additional Past Medical History / Comment(s): Type 2 diabetic History of Any Multi-Drug Resistant Organisms: None Reported Past Surgical History: Appendectomy, Prostate Surgery Additional Past Surgical History / Comment(s): prostate Past Anesthesia/Blood Transfusion Reactions: No Reported Reaction Past Psychological History: No Psychological Hx Reported Smoking Status: Never smoker Past Alcohol Use History: Rare Past Drug Use History: None Reported Medications and Allergies Home Medications Medication Instructions Recorded Confirmed Type Alfuzosin HCl [Alfuzosin HCl ER] 10 mg PO HS 08/08/22 05/28/23 History Ascorbic Acid [Vitamin C] 1,000 mg PO HS 08/08/22 05/28/23 History Calcium Carb/Mag Ox/Zinc Sulf 1 tab PO HS 08/08/22 05/28/23 History [Kfd-Xjd-Zepo 334-134-5 mg Tab] Cholecalciferol [Vitamin D3 (25 25 mcg PO HS 08/08/22 05/28/23 History Mcg = 1000 Iu)] Mv-Mn/Om3/Dha/Epa/Fish/Lut/Hortencia 1 cap PO HS 08/08/22 05/28/23 History [Ocuvite Adult 50 Plus Softgel] Losartan Potassium [Cozaar] 50 mg PO DAILY 09/26/22 05/28/23 History Metoprolol Tartrate [Lopressor] 25 mg PO DAILY 09/26/22 05/28/23 History Apixaban [Eliquis] 5 mg PO DAILY 05/28/23 05/28/23 History Multivit-Minerals/Folic Acid 80 mcg PO HS 05/28/23 05/28/23 History [Centrum Adult 50 Plus Gummy] Allergies Allergy/AdvReac Type Severity Reaction Status Date / Time iodine AdvReac Nausea & Verified 05/28/23 17:46 Vomiting Physical Exam Vitals: Vital Signs Temp Pulse Pulse Resp BP BP Pulse Ox 05/29/23 08:00 88 18 05/29/23 07:52 97.4 F L 88 18 101/65 97 05/29/23 04:00 97.9 F 80 19 100/79 98 05/29/23 00:00 97.9 F 91 18 105/76 99 05/28/23 21:08 93 15 88/57 99 05/28/23 20:00 104 H 16 99/70 100 05/28/23 17:22 112 H 18 104/79 99 05/28/23 17:08 18 05/28/23 17:00 137 H 20 104/79 98 05/28/23 16:50 140 H 20 128/79 100 05/28/23 14:50 97.4 F L 137 H 22 152/131 100 Intake and Output 05/28/23 05/29/23 05/29/23 22:59 06:59 14:59 Output Total 200 Balance -200 Output: Urine 200 Other: Voiding Method Urinal Urinal Weight 106.594 kg Results 05/28/23 15:52 05/28/23 15:52 Cardiac Enzymes 05/28/23 05/28/23 05/28/23 Range/Units 15:52 15:52 20:56 AST 36 (17-59) U/L Troponin I <0.012 0.013 (0.000-0.034) ng/mL 05/28/23 Range/Units 23:49 AST (17-59) U/L Troponin I 0.013 (0.000-0.034) ng/mL Coagulation 05/28/23 Range/Units 15:52 PT 14.8 H (10.0-12.5) sec APTT 29.1 (22.0-30.0) sec CBC 05/28/23 Range/Units 15:52 WBC 6.6 (3.8-10.6) k/uL RBC 4.04 L (4.30-5.90) m/uL Hgb 12.8 L (13.0-17.5) gm/dL Hct 40.6 (39.0-53.0) % Plt Count 150 (150-450) k/uL Comprehensive Metabolic Panel 05/28/23 Range/Units 15:52 Sodium 141 (137-145) mmol/L Potassium 4.3 (3.5-5.1) mmol/L Chloride 106 (98-107) mmol/L Carbon Dioxide 25 (22-30) mmol/L BUN 36 H (9-20) mg/dL Creatinine 1.85 H (0.66-1.25) mg/dL Glucose 118 H (74-99) mg/dL Calcium 9.2 (8.4-10.2) mg/dL AST 36 (17-59) U/L ALT 32 (4-49) U/L Alkaline Phosphatase 105 (38-126) U/L Total Protein 6.6 (6.3-8.2) g/dL Albumin 3.5 (3.5-5.0) g/dL Current Medications Generic Name Dose Route Start Last Admin Trade Name Freq PRN Reason Stop Dose Admin Apixaban 2.5 mg 05/28/23 21:00 05/29/23 08:38 Apixaban 2.5 Mg Tablet PO 2.5 mg BID HARRISON Administration Protocol Furosemide 40 mg 05/29/23 09:00 05/29/23 09:39 Furosemide 10 Mg/Ml 4 Ml Vial IV 40 mg Q12HR HARIRSON Administration Diltiazem HCl 125 mg/ Sodium 125 mls @ 5 mls/hr 05/28/23 16:00 05/28/23 16:52 Chloride IV 5 mg/hr .Q24H HARRISON 5 mls/hr Administration 5 MG/HR Losartan Potassium 50 mg 05/29/23 09:00 05/29/23 08:38 Losartan 50 Mg Tab PO 50 mg DAILY HARRISON Administration Metoprolol Tartrate 25 mg 05/29/23 21:00 Metoprolol Tartrate 25 Mg Tab PO BID HARRISON Nitroglycerin 0.4 mg 05/28/23 16:32 Nitroglycerin Sl Tabs 0.4 Mg Tab SUBLINGUAL Q5M PRN Chest Pain Intake and Output 05/28/23 05/29/23 05/29/23 22:59 06:59 14:59 Output Total 200 Balance -200 Output: Urine 200 Other: Voiding Method Urinal Urinal Weight 106.594 kg 05/28/23 15:52 05/28/23 15:52
[2023-05-29] MEDS ORDERED: ACETAMINOPHEN TAB 325 MG TAB PO PRN (12:43)
[2023-05-29] MEDS ORDERED: LACTULOSE 20 GM/30 ML CUP PO PRN (12:43)
[2023-05-29] MEDS ORDERED: ONDANSETRON 4 MG/2 ML VIAL IVP PRN (12:43)
[2023-05-29] MEDS ORDERED: CALCIUM CARBONATE 500 MG CHEWABLE PO PRN (12:43)
[2023-05-29] MEDS ORDERED: NALOXONE 0.4 MG/ML 1 ML VIAL IV PRN (12:43)
[2023-05-29] MEDS ORDERED: ALPRAZolam 0.25 MG TAB PO PRN (12:43)
[2023-05-29] MEDS ORDERED: MELATONIN 3 MG TABLET PO PRN (12:43)
[2023-05-29 13:48] LABS: African American GFR (CKD) 35 (>60 ml/min/1.73 sqM); Anion Gap 9 mmol/L; Blood Urea Nitrogen 40 mg/dL (9-20); Calcium 8.6 mg/dL (8.4-10.2); Carbon Dioxide 28 mmol/L (22-30); Chloride 105 mmol/L (98-107); Glucose 123 mg/dL (74-99); Non-African American GFR(CKD) 30 (>60 ml/min/1.73 sqM); Sodium 142 mmol/L (137-145)
[2023-05-29 13:53] LABS: Potassium 4.4 mmol/L (3.5-5.1)
--- NOTE | 2023-05-29 16:23 | P.HPIM ---
History of Present Illness H&P Date: 05/28/23 Chief Complaint: Short of breath Very pleasant 83-year-old patient follows with Dr. Li. Patient was seen in the ER, accompanied by his . For over 2 weeks patient is being gradually become increasingly short of breath. Increased edema in the lower extremity. No cough. No fever or chills. Decreased appetite. Tired. No change in bowel pattern. No chest pain or palpitation. Patient the ER was found to be in atrial fibrillation with uncontrolled rate. Started on IV Cardizem drip. Review of systems: GEN.: Tired, decreased appetite EYES: None HEENT: Decreased hearing NECK: None RESPIRATORY: As above CARDIOVASCULAR: As above GASTROINTESTINAL: None GENITOURINARY: None MUSCULOSKELETAL: Joint pains LYMPHATICS: None HEMATOLOGICAL: None PSYCHIATRY: A bit forgetful NEUROLOGICAL: None Social history: . Retired. Nonsmoker. Alcohol rarely. Physical examination: VITAL SIGNS: 97.4, 137, 22, 1 28 x 79, 100% on 2 L GENERAL: BMI 36.8, declining but awake a bit short of breath. EYES: Pupils equal. Conjunctiva normal. HEENT: External appearance of nose and ears normal, oral cavity grossly normal. NECK: Neck veins prominent; masses not palpable. HEART: Irregular heart sounds; significant edema. LUNGS: Respiratory rate increased; trees breath sounds. ABDOMEN: Soft, distended nontender, liver spleen not palpable, no masses palpable. PSYCH: Able to answer simple questions. A bit forgetfull. MUSCULOSKELETAL:No Clubbing/cyanosis;muscles-grossly intact. OA NEUROLOGICAL: Cranial nerves grossly intact; no facial asymmetry, power and sensation grossly intact. LYMPHATICS: No lymph nodes palpable in the axilla and neck INVESTIGATIONS, reviewed in the clinical context: 05/28/2023: White count 6.6 hemoglobin 12.8 platelets 150 potassium 4.3 BUN 36 creatinine 1.85 Troponin I less than 0.012 ProBNP 4000 EKG tracing personally reviewed by me: Atrial fibrillation rate 124 Chest x-ray film personally reviewed by me-some cephalization of vessels. Left pleural effusion Assessment plan: -Acute congestive heart failure exacerbation. Also precipitated by uncontrolled atrial fibrillation. 2-D echo. IV Lasix -Persistent atrial fibrillation with a rapid ventricular rate IV Cardizem drip. Eliquis. Telemetry. Consult cardiology. -Moderate cognitive impairment possibly from late onset Alzheimer with dementia -Essential hypertension Lopressor. Cozaar. -BPH alfuZosin Past Medical History Past Medical History: CVA/TIA, Diabetes Mellitus Additional Past Medical History / Comment(s): Type 2 diabetic History of Any Multi-Drug Resistant Organisms: None Reported Past Surgical History: Appendectomy, Prostate Surgery Additional Past Surgical History / Comment(s): prostate Past Anesthesia/Blood Transfusion Reactions: No Reported Reaction Past Psychological History: No Psychological Hx Reported Smoking Status: Never smoker Past Alcohol Use History: Rare Past Drug Use History: None Reported Medications and Allergies Home Medications Medication Instructions Recorded Confirmed Type Alfuzosin HCl [Alfuzosin HCl ER] 10 mg PO HS 08/08/22 05/28/23 History Ascorbic Acid [Vitamin C] 1,000 mg PO HS 08/08/22 05/28/23 History Calcium Carb/Mag Ox/Zinc Sulf 1 tab PO HS 08/08/22 05/28/23 History [Ole-Ixf-Tpzc 334-134-5 mg Tab] Cholecalciferol [Vitamin D3 (25 25 mcg PO HS 08/08/22 05/28/23 History Mcg = 1000 Iu)] Mv-Mn/Om3/Dha/Epa/Fish/Lut/Hortencia 1 cap PO HS 08/08/22 05/28/23 History [Ocuvite Adult 50 Plus Softgel] Losartan Potassium [Cozaar] 50 mg PO DAILY 09/26/22 05/28/23 History Metoprolol Tartrate [Lopressor] 25 mg PO DAILY 09/26/22 05/28/23 History Apixaban [Eliquis] 5 mg PO DAILY 05/28/23 05/28/23 History Multivit-Minerals/Folic Acid 80 mcg PO HS 05/28/23 05/28/23 History [Centrum Adult 50 Plus Gummy] Allergies Allergy/AdvReac Type Severity Reaction Status Date / Time iodine AdvReac Nausea & Verified 05/28/23 17:46 Vomiting Physical Exam Vitals: Vital Signs Temp Pulse Resp BP Pulse Ox 05/28/23 16:50 140 H 20 128/79 100 05/28/23 14:50 97.4 F L 137 H 22 152/131 100 Intake and Output 05/28/23 05/28/23 05/28/23 06:59 14:59 22:59 Other: Weight 106.594 kg Results CBC & Chem 7: 05/28/23 15:52 05/29/23 13:15 Labs: Abnormal Lab Results - Last 24 Hours (Table) 05/28/23 05/28/23 05/28/23 Range/Units 15:52 15:52 15:52 RBC 4.04 L (4.30-5.90) m/uL Hgb 12.8 L (13.0-17.5) gm/dL MCV 100.6 H (80.0-100.0) fL PT 14.8 H (10.0-12.5) sec INR 1.4 H (<1.2) BUN 36 H (9-20) mg/dL Creatinine 1.85 H (0.66-1.25) mg/dL Glucose 118 H (74-99) mg/dL
--- NOTE | 2023-05-29 16:29 | P.PN ---
Progress Note - Text Progress Note Date: 05/29/23 Chief Complaint: Short of breath Very pleasant 83-year-old patient follows with Dr. Li. Patient was seen in the ER, accompanied by his . For over 2 weeks patient is being gradually become increasingly short of breath. Increased edema in the lower extremity. No cough. No fever or chills. Decreased appetite. Tired. No change in bowel pattern. No chest pain or palpitation. Patient the ER was found to be in atrial fibrillation with uncontrolled rate. Started on IV Cardizem drip. 05/29/2023: Remains on IV Lasix. Tired. Short of breath. Patient was taken off Cardizem drip. Lopressor 25 mg twice a day. Eating about half his meals. Today his atrial fibrillation is around 100. Active Medications Acetaminophen (Acetaminophen Tab 325 Mg Tab) 650 mg PO Q6HR PRN PRN Reason: Mild Pain or Fever > 100.5 Alprazolam (Alprazolam 0.25 Mg Tab) 0.25 mg PO Q6HR PRN PRN Reason: Anxiety Apixaban (Apixaban 2.5 Mg Tablet) 2.5 mg PO BID [facility]; Protocol Last Admin: 05/29/23 08:38 Dose: 2.5 mg Ascorbic Acid (Ascorbic Acid 500 Mg Tab) 1,000 mg PO HS [facility] Calcium Carbonate/Glycine (Calcium Carbonate 500 Mg Chewable) 1,000 mg PO Q4HR PRN PRN Reason: Dyspepsia Furosemide (Furosemide 10 Mg/Ml 4 Ml Vial) 40 mg IV Q12HR [facility] Last Admin: 05/29/23 09:39 Dose: 40 mg Lactulose (Lactulose 20 Gm/30 Ml Cup) 20 gm PO DAILY PRN PRN Reason: Constipation Losartan Potassium (Losartan 50 Mg Tab) 50 mg PO DAILY [facility] Last Admin: 05/29/23 08:38 Dose: 50 mg Melatonin (Melatonin 3 Mg Tablet) 3 mg PO HS PRN PRN Reason: Insomnia Metoprolol Tartrate (Metoprolol Tartrate 25 Mg Tab) 25 mg PO BID [facility] Multivitamins (Multivitamins, Thera 1 Each Tab) 1 each PO HS [facility] Naloxone HCl (Naloxone 0.4 Mg/Ml 1 Ml Vial) 0.2 mg IV Q2M PRN PRN Reason: Opioid Reversal Nitroglycerin (Nitroglycerin Sl Tabs 0.4 Mg Tab) 0.4 mg SUBLINGUAL Q5M PRN PRN Reason: Chest Pain Ondansetron HCl (Ondansetron 4 Mg/2 Ml Vial) 4 mg IVP Q8HR PRN PRN Reason: Nausea And Vomiting Tamsulosin HCl (Tamsulosin 0.4 Mg Cap.Er.24h) 0.4 mg PO HS HARRISON Social history: . Retired. Nonsmoker. Alcohol rarely. Physical examination: VITAL SIGNS: 97.8, 90, 18, 101/77, 99% on 2 L GENERAL: Laying in bed, tired EYES: Pupils equal. Conjunctiva normal. HEENT: External appearance of nose and ears normal, oral cavity grossly normal. NECK: Neck veins prominent; masses not palpable. HEART: Irregular heart sounds; significant edema. LUNGS: Respiratory rate increased; decreased breath sounds. ABDOMEN: Soft, distended nontender, liver spleen not palpable, no masses palpable. PSYCH: Able to answer simple questions. A bit forgetfull. MUSCULOSKELETAL:No Clubbing/cyanosis;muscles-grossly intact. OA INVESTIGATIONS, reviewed in the clinical context: 05/29/2023: Potassium 4.4 BUN 40 creatinine 1.98 05/28/2023: White count 6.6 hemoglobin 12.8 platelets 150 potassium 4.3 BUN 36 creatinine 1.85 Troponin I less than 0.012 ProBNP 4000 EKG tracing personally reviewed by me: Atrial fibrillation rate 124 Chest x-ray film personally reviewed by me-some cephalization of vessels. Left pleural effusion Assessment plan: -Acute congestive heart failure exacerbation. Also precipitated by uncontrolled atrial fibrillation.: Slow to respond 2-D echo. Continue IV Lasix 40 mg every 12. Fluid restriction. -Persistent atrial fibrillation with a rapid ventricular rate: Rate controlled IV Cardizem drip-discontinued. Eliquis. Lopressor 25 mg twice a day Telemetry. Follow with cardiology -Chronic kidney disease stage III likely nephrosclerosis Follow renal function -Moderate cognitive impairment possibly from late onset Alzheimer with dementia -Essential hypertension Lopressor. Cozaar. -BPH alfuZosin -Full code Past Medical History Past Medical History: CVA/TIA, Diabetes Mellitus Additional Past Medical History / Comment(s): Type 2 diabetic History of Any Multi-Drug Resistant Organisms: None Reported Past Surgical History: Appendectomy, Prostate Surgery Additional Past Surgical History / Comment(s): prostate Past Anesthesia/Blood Transfusion Reactions: No Reported Reaction Past Psychological History: No Psychological Hx Reported Smoking Status: Never smoker Past Alcohol Use History: Rare Past Drug Use History: None Reported
[2023-05-29 17:35] LABS: Glucose,Whole Blood 135 mg/dL (70-110)
[2023-05-29] MEDS: TAMSULOSIN 0.4 MG CAP.ER.24H PO SCH (20:23)
[2023-05-29] MEDS: MULTIVITAMINS, THERA 1 EACH TAB PO SCH (20:24)
[2023-05-29] MEDS: ASCORBIC ACID 500 MG TAB PO SCH (20:24)
[2023-05-30 06:15] LABS: Glucose,Whole Blood 107 mg/dL (70-110)
[2023-05-30 08:37] LABS: African American GFR (CKD) 32 (>60 ml/min/1.73 sqM); Anion Gap 10 mmol/L; Blood Urea Nitrogen 40 mg/dL (9-20); Calcium 8.7 mg/dL (8.4-10.2); Carbon Dioxide 29 mmol/L (22-30); Chloride 103 mmol/L (98-107); Glucose 100 mg/dL (74-99); Non-African American GFR(CKD) 28 (>60 ml/min/1.73 sqM); Potassium 3.9 mmol/L (3.5-5.1); Sodium 142 mmol/L (137-145)
[2023-05-30] MEDS: FUROSEMIDE 10 MG/ML 4 ML VIAL IV SCH (08:48)
[2023-05-30] MEDS: METOPROLOL TARTRATE 50 MG TAB PO SCH ×2 (08:48→19:41)
[2023-05-30] MEDS: APIXABAN 2.5 MG TABLET PO SCH ×2 (08:48→19:41)
--- NOTE | 2023-05-30 11:17 | CA ---
Transthoracic Echo Report Name: Alonzo Lambert Age: 83 Gender: M : 1940 Exam Date: 05/30/2023 10:39 Exam Location: [facility] Ht (in): 67 Wt (lb): 235 Ordering Physician: Dorcas Monroe Attending/Referring Phys: [id number], Fer Mgmt Consultant Jaskaran Garcia Procedure CPT: Indications: LV function, CHF, AF Cardiac Hx: Technical Quality: Fair Contrast 1: Total Dose (mL): Contrast 2: Total Dose (mL): MEASUREMENTS (Male / Female) Normal Values 2D ECHO LV Diastolic Diameter PLAX 3.3 cm 4.2 - 5.9 / 3.9 - 5.3 cm LV Systolic Diameter PLAX 2.9 cm IVS Diastolic Thickness 1.2 cm 0.6 - 1.0 / 0.6 - 0.9 cm LVPW Diastolic Thickness 1.3 cm 0.6 - 1.0 / 0.6 - 0.9 cm LV Relative Wall Thickness 0.8 RV Internal Dim ED PLAX 3.0 cm LVOT Diameter 2.0 cm Aortic Root Diameter 2.9 cm LA Systolic Diameter LX 2.9 cm 3.0 - 4.0 / 2.7 - 3.8 cm LV Diastolic Volume MOD BP 53.4 cm??? 67 - 155 / 56 - 104 cm??? LV Systolic Volume MOD BP 27.4 cm??? 22 - 58 / 19 - 49 cm??? LV Ejection Fraction MOD BP 48.8 % >= 55 % LV Cardiac Index MOD BP 1320.9 cm???/min???m??? LV Diastolic Volume MOD 4C 45.7 cm??? LV Systolic Volume MOD 4C 26.9 cm??? LV Ejection Fraction MOD 4C 41.0 % LV Cardiac Index MOD 4C 948.9 cm???/min???m??? LV Diastolic Length 4C 6.0 cm LV Systolic Length 4C 5.8 cm LV Diastolic Volume MOD 2C 59.0 cm??? LV Systolic Volume MOD 2C 27.5 cm??? LV Ejection Fraction MOD 2C 53.3 % LV Cardiac Index MOD 2C 1592.5 cm???/min???m??? LV Diastolic Length 2C 6.4 cm LV Systolic Length 2C 5.9 cm LA Volume 32.2 cm??? 18 - 58 / 22 - 52 cm??? LA Volume Index 14.0 cm???/m??? 16 - 28 cm???/m??? DOPPLER AV Peak Velocity 143.4 cm/s AV Peak Gradient 8.2 mmHg LVOT Peak Velocity 97.5 cm/s LVOT Peak Gradient 3.8 mmHg LVOT Velocity Time Integral 17.2 cm LVOT Stroke Volume 55.6 cm??? LVOT Stroke Volume Index 25.7 ml/m??? LVOT Cardiac Index 2818.2 cm???/min???m??? AV Area Cont Eq pk 2.2 cm??? MV Peak Velocity 121.1 cm/s MV Peak Gradient 5.9 mmHg MV Mean Velocity 67.6 cm/s MV Mean Gradient 2.2 mmHg MV Velocity Time Integral 22.5 cm MR Peak Velocity 376.3 cm/s MR Peak Gradient 56.6 mmHg Mitral E Point Velocity 106.3 cm/s Mitral A Point Velocity 28.7 cm/s Mitral E to A Ratio 3.7 MV Deceleration Time 175.9 ms TR Peak Velocity 220.9 cm/s TR Peak Gradient 19.5 mmHg Right Ventricular Systolic Press 24.5 mmHg FINDINGS Left Ventricle Normal LV size. Mild concentric LVH. Left ventricular ejection fraction is estimated at _45-50 %. Right Ventricle Mild right ventricular dilatation. RVSP= 25mmHg. Right Atrium Normal right atrial size. Left Atrium Mild left atrial dilatation. Mitral Valve Structurally normal mitral valve. Mild MR. Aortic Valve Mild to moderate AV calcification. No aortic stenosis. No aortic regurgitation. Tricuspid Valve Structurally normal tricuspid valve. Moderate TR. Pulmonic Valve Structurally normal pulmonic valve. Trace PI. Pericardium Small global pericardial effusion best seen in apical four chamber views. Aorta Normal size aortic root. CONCLUSIONS Mild LV dysfunction Mild mitral regurgitation Moderate tricuspid regurgitation Previewed by: Dr. Kurtis Turner MD (Electronically Signed) Final Date: 30 May 2023 11:16
[2023-05-30 11:46] LABS: Glucose,Whole Blood 138 mg/dL (70-110)
--- NOTE | 2023-05-30 12:32 | P.PN ---
Progress Note - Text Progress Note Date: 05/30/23 Chief Complaint: Short of breath Very pleasant 83-year-old patient follows with Dr. Li. Patient was seen in the ER, accompanied by his . For over 2 weeks patient is being gradually become increasingly short of breath. Increased edema in the lower extremity. No cough. No fever or chills. Decreased appetite. Tired. No change in bowel pattern. No chest pain or palpitation. Patient the ER was found to be in atrial fibrillation with uncontrolled rate. Started on IV Cardizem drip. 05/29/2023: Remains on IV Lasix. Tired. Short of breath. Patient was taken off Cardizem drip. Lopressor 25 mg twice a day. Eating about half his meals. Today his atrial fibrillation is around 100. 05/30/2023: A. fib heart rate went to 140s this morning. Lopressor increased. Remains on IV Lasix. Some shortness of breath still present. Eating well. Tired. Active Medications Acetaminophen (Acetaminophen Tab 325 Mg Tab) 650 mg PO Q6HR PRN PRN Reason: Mild Pain or Fever > 100.5 Alprazolam (Alprazolam 0.25 Mg Tab) 0.25 mg PO Q6HR PRN PRN Reason: Anxiety Apixaban (Apixaban 2.5 Mg Tablet) 2.5 mg PO BID [facility]; Protocol Last Admin: 05/30/23 08:48 Dose: 2.5 mg Ascorbic Acid (Ascorbic Acid 500 Mg Tab) 1,000 mg PO HS [facility] Last Admin: 05/29/23 20:24 Dose: 1,000 mg Calcium Carbonate/Glycine (Calcium Carbonate 500 Mg Chewable) 1,000 mg PO Q4HR PRN PRN Reason: Dyspepsia Furosemide (Furosemide 10 Mg/Ml 4 Ml Vial) 40 mg IV Q12HR [facility] Last Admin: 05/30/23 08:48 Dose: 40 mg Lactulose (Lactulose 20 Gm/30 Ml Cup) 20 gm PO DAILY PRN PRN Reason: Constipation Last Admin: 05/30/23 08:48 Dose: 20 gm Losartan Potassium (Losartan 25 Mg Tab) 25 mg PO DAILY [facility] Melatonin (Melatonin 3 Mg Tablet) 3 mg PO HS PRN PRN Reason: Insomnia Metoprolol Tartrate (Metoprolol Tartrate 50 Mg Tab) 50 mg PO BID [facility] Last Admin: 05/30/23 08:48 Dose: 50 mg Multivitamins (Multivitamins, Thera 1 Each Tab) 1 each PO [facility] Last Admin: 05/29/23 20:24 Dose: 1 each Naloxone HCl (Naloxone 0.4 Mg/Ml 1 Ml Vial) 0.2 mg IV Q2M PRN PRN Reason: Opioid Reversal Nitroglycerin (Nitroglycerin Sl Tabs 0.4 Mg Tab) 0.4 mg SUBLINGUAL Q5M PRN PRN Reason: Chest Pain Ondansetron HCl (Ondansetron 4 Mg/2 Ml Vial) 4 mg IVP Q8HR PRN PRN Reason: Nausea And Vomiting Tamsulosin HCl (Tamsulosin 0.4 Mg Cap.Er.24h) 0.4 mg PO [facility] Last Admin: 05/29/23 20:23 Dose: 0.4 mg Social history: . Retired. Nonsmoker. Alcohol rarely. Physical examination: VITAL SIGNS: 97.8, 118, 20, 103/75, 95% on 2 L GENERAL: Laying in bed, tired EYES: Pupils equal. Conjunctiva normal. HEENT: External appearance of nose and ears normal, oral cavity grossly normal. NECK: Neck veins prominent; masses not palpable. HEART: Irregular heart sounds; significant edema. LUNGS: Respiratory rate increased; decreased breath sounds. ABDOMEN: Soft, distended nontender, liver spleen not palpable, no masses palpable. PSYCH: Able to answer simple questions. A bit forgetfull. MUSCULOSKELETAL:No Clubbing/cyanosis;muscles-grossly intact. OA INVESTIGATIONS, reviewed in the clinical context: 05/30/2023: Potassium 3.9 BUN 40 creatinine 2.11 05/29/2023: Potassium 4.4 BUN 40 creatinine 1.98 05/28/2023: White count 6.6 hemoglobin 12.8 platelets 150 potassium 4.3 BUN 36 creatinine 1.85 Troponin I less than 0.012 ProBNP 4000 EKG tracing personally reviewed by me: Atrial fibrillation rate 124 Chest x-ray film personally reviewed by me-some cephalization of vessels. Left pleural effusion Assessment plan: -Acute congestive heart failure exacerbation. Also precipitated by uncontrolled atrial fibrillation.: Slow to respond 2-D echo. Continue IV Lasix 60 mg every 12. Fluid restriction. -Persistent atrial fibrillation with a rapid ventricular rate: Rate controlled IV Cardizem drip-discontinued. Eliquis. Lopressor 25 mg twice a day Telemetry. Follow with cardiology -Chronic kidney disease stage III likely nephrosclerosis Follow renal function -Moderate cognitive impairment possibly from late onset Alzheimer with dementia -Essential hypertension Lopressor. Cozaar. -BPH alfuZosin -Full code Past Medical History Past Medical History: CVA/TIA, Diabetes Mellitus Additional Past Medical History / Comment(s): Type 2 diabetic History of Any Multi-Drug Resistant Organisms: None Reported Past Surgical History: Appendectomy, Prostate Surgery Additional Past Surgical History / Comment(s): prostate Past Anesthesia/Blood Transfusion Reactions: No Reported Reaction Past Psychological History: No Psychological Hx Reported Smoking Status: Never smoker Past Alcohol Use History: Rare Past Drug Use History: None Reported
--- NOTE | 2023-05-30 13:45 | P.PN ---
Subjective HISTORY OF PRESENT ILLNESS: This is a 83-year-old male with a past medical history significant for congestive heart failure, atrial fibrillation, hypertension, hyperlipidemia, nonischemic cardiac myopathy, COPD, and former nicotine dependence. Patient follows in the office with Dr. Castillo. We have been asked to see the patient in consultation for congestive heart failure and atrial fibrillation. Patient examined at the bedside in the emergency room. Patient presented to the cardiology office yesterday for a routine visit. The patient was very short of breath and tachypneic and he was brought to the hospital for further evaluation. The patient was found to be in acute congestive heart failure. He was given a one-time dose of IV Lasix per the ER physician. He was also found to be in A. fib with RVR. He was started on IV Cardizem. This morning he continues to report shortness of breath. He denies any chest pain or pressure. Telemetry reveals atrial fibrillation with a heart rate around 110. * EKG reveals atrial fibrillation with RVR * Chest xray cardiomegaly, pulmonary vascular congestion, and bilateral pleural effusions. * Laboratory data: Troponin negative 3. ProBNP 4000. * Most recent echocardiogram obtained in July 2022 revealed ejection fraction 40%, overall global decrease in contractility noted. [place] is hypokinetic. Diastolic dysfunction. Mild biatrial dilatation. No significant pulmonary hypertension * Cardiac catheterization history: Unknown 05/30/2023 Patient examined this morning at the bedside. Patient denies chest pain or pressure. He reports mild shortness of breath. He remains on IV Lasix. Creatinine today 2.11. Telemetry reveals atrial fibrillation with a heart rate in the 140s. Echocardiogram completed revealing ejection fraction 45-50%, mild MR, moderate TR. 05/31/2023 Patient examined this morning at the bedside. Patient denies chest pain or pressure. He reports mild shortness of breath. He remains on IV Lasix 60 mg every 12 hours. Kidney function from this morning is currently pending. Telemetry revealed atrial fibrillation with heart rate between [id number] occasionally spiking up and to the 130s 140s but not sustaining. Blood pressure 96/57. PHYSICAL EXAM: VITAL SIGNS: Reviewed. GENERAL: Well-developed in no acute distress. HEENT: Head is normocephalic. Pupils are equal, round. Sclerae anicteric. Mucous membranes of the mouth are moist. Neck supple. No JVD or thyromegaly LUNGS: Respirations even and unlabored. Lungs diminished with bibasilar crackles and expiratory wheezing HEART: Tachycardic. Irregular rate and rhythm. S1 and S2 heard. ABDOMEN: Soft. Nondistended. Nontender. EXTREMITIES: Normal range of motion. No clubbing or cyanosis. Peripheral pulses intact. 2+ bilateral lower extremity edema NEUROLOGIC: Awake and alert. Oriented x 3. ASSESSMENT: Shortness of breath Acute on chronic heart failure with reduced ejection fraction, 40% Paroxysmal atrial fibrillation with RVR Nonischemic cardiomyopathy Hypertension Hyperlipidemia COPD Former nicotine dependence PLAN: Continue IV Lasix. Awaiting lab work from this morning Daily weights, accurate I&O, and monitoring of kidney function Increase metoprolol to 75 mg twice a day Cozaar decreased to 25 mg daily to allow for increase in rate controlling medications Continue telemetry monitoring Further recommendations pending patient's course Nurse practitioner note has been reviewed by physician. Signing provider agrees with the documented findings, assessment, and plan of care. Objective - Vital Signs Vital signs: Vital Signs Temp 98 F 05/30/23 12:00 Pulse 120 H 05/30/23 12:00 Resp 20 05/30/23 12:00 BP 106/61 05/30/23 12:00 Pulse Ox 97 05/30/23 12:00 FiO2 Intake & Output 05/29/23 05/30/23 05/30/23 18:59 06:59 18:59 Intake Total 240 240 Output Total 500 1450 Balance -500 -1210 240 Weight 85.5 kg Intake: Oral 240 240 Output: Urine 500 1450 Other: Voiding Method External Catheter Urinal Urinal - Labs CBC & Chem 7: 05/28/23 15:52 05/30/23 07:45 Labs: Abnormal Lab Results - Last 24 Hours (Table) 05/29/23 05/29/23 05/30/23 Range/Units 13:15 17:34 07:45 BUN 40 H 40 H (9-20) mg/dL Creatinine 1.98 H 2.11 H (0.66-1.25) mg/dL Glucose 123 H 100 H (74-99) mg/dL POC Glucose (mg/dL) 135 H (70-110) mg/dL 05/30/23 Range/Units 11:44 BUN (9-20) mg/dL Creatinine (0.66-1.25) mg/dL Glucose (74-99) mg/dL POC Glucose (mg/dL) 138 H (70-110) mg/dL
[2023-05-30 16:07] LABS: Glucose,Whole Blood 122 mg/dL (70-110)
[2023-05-30 19:22] LABS: Glucose,Whole Blood 135 mg/dL (70-110)
[2023-05-30] MEDS: ASCORBIC ACID 500 MG TAB PO SCH (19:41)
[2023-05-30] MEDS: TAMSULOSIN 0.4 MG CAP.ER.24H PO SCH (19:41)
[2023-05-30] MEDS: FUROSEMIDE 10 MG/ML 10 ML VIAL IV SCH (19:42)
[2023-05-30] MEDS: MULTIVITAMINS, THERA 1 EACH TAB PO SCH (19:42)
[2023-05-31 06:08] LABS: Glucose,Whole Blood 112 mg/dL (70-110)
[2023-05-31] MEDS: APIXABAN 2.5 MG TABLET PO SCH ×2 (09:09→20:08)
[2023-05-31] MEDS: LOSARTAN 25 MG TAB PO SCH (09:10)
[2023-05-31] MEDS: FUROSEMIDE 10 MG/ML 10 ML VIAL IV SCH ×2 (09:10→20:08)
[2023-05-31] MEDS: METOPROLOL TARTRATE 25 MG TAB PO SCH ×2 (09:10→20:08)
[2023-05-31 11:15] LABS: Glucose,Whole Blood 174 mg/dL (70-110)
[2023-05-31 13:33] LABS: African American GFR (CKD) 32 (>60 ml/min/1.73 sqM); Blood Urea Nitrogen 41 mg/dL (9-20); Carbon Dioxide 25 mmol/L (22-30); Chloride 102 mmol/L (98-107); Glucose 183 mg/dL (74-99); Non-African American GFR(CKD) 28 (>60 ml/min/1.73 sqM)
[2023-05-31 13:36] LABS: Anion Gap 10 mmol/L; Sodium 137 mmol/L (137-145)
[2023-05-31 13:52] LABS: Potassium 3.6 mmol/L (3.5-5.1)
[2023-05-31 16:23] LABS: Glucose,Whole Blood 145 mg/dL (70-110)
--- NOTE | 2023-05-31 17:16 | P.PN ---
Subjective Very pleasant 83-year-old patient follows with Dr. Li. Patient was seen in the ER, accompanied by his . For over 2 weeks patient is being gradually become increasingly short of breath. Increased edema in the lower extremity. No cough. No fever or chills. Decreased appetite. Tired. No change in bowel pattern. No chest pain or palpi tation. Patient the ER was found to be in atrial fibrillation with uncontrolled rate. Started on IV Cardizem drip. 05/29/2023: Remains on IV Lasix. Tired. Short of breath. Patient was taken off Cardizem drip. Lopressor 25 mg twice a day. Eating about half his meals. Today his atrial fibrillation is around 100. 05/30/2023: A. fib heart rate went to 140s this morning. Lopressor increased. Remains on IV Lasix. Some shortness of breath still present. Eating well. Tired. 05/31/2023 Patient still have little dyspnea with talking No chest pain No new complaint Patient uses Eliquis and he hasn't at home Remains on IV Lasix 60 mg twice a day, creatinine 2.1 which is at baseline of 1.4-2.1 [employer] team of the case, metoprolol dose increased 50 up to 75 mg. Also he is on losartan 25 mg by mouth daily Objective - Vital Signs Vital signs: Vital Signs Temp 98.6 F 05/31/23 16:30 Pulse 84 05/31/23 16:30 Resp 18 05/31/23 16:30 BP 117/57 05/31/23 16:30 Pulse Ox 98 05/31/23 16:30 FiO2 Intake & Output 05/30/23 05/31/23 05/31/23 18:59 06:59 18:59 Intake Total 476 300 Output Total 600 Balance 476 -300 Weight 85.5 kg Intake: Oral 476 300 Output: Urine 600 Other: Voiding Method Urinal Urinal Urinal - Exam GENERAL: The patient is alert and oriented x3, not in any acute distress. Well developed, well nourished. HEENT: Pupils are round and equally reacting to light. EOMI. No scleral icterus. No conjunctival pallor. Normocephalic, atraumatic. No pharyngeal erythema. No thyromegaly. CARDIOVASCULAR: S1 and S2 present. No murmurs, rubs, or gallops. PULMONARY: Chest is clear to auscultation, no wheezing , no crackles. ABDOMEN: Soft, nontender, nondistended, normoactive bowel sounds. No palpable organomegaly. MUSCULOSKELETAL: No joint swelling or deformity. EXTREMITIES: No cyanosis, clubbing, or pedal edema. NEUROLOGICAL: Gross neurological examination did not reveal any focal deficits. SKIN: No rashes. no petechiae. - Labs CBC & Chem 7: 05/28/23 15:52 05/31/23 11:49 Labs: Abnormal Lab Results - Last 24 Hours (Table) 05/30/23 05/31/23 05/31/23 Range/Units 19:19 06:05 11:13 BUN (9-20) mg/dL Creatinine (0.66-1.25) mg/dL Glucose (74-99) mg/dL POC Glucose (mg/dL) 135 H 112 H 174 H (70-110) mg/dL Calcium (8.4-10.2) mg/dL 05/31/23 05/31/23 Range/Units 11:49 16:21 BUN 41 H (9-20) mg/dL Creatinine 2.13 H (0.66-1.25) mg/dL Glucose 183 H (74-99) mg/dL POC Glucose (mg/dL) 145 H (70-110) mg/dL Calcium 8.0 L (8.4-10.2) mg/dL Assessment and Plan Assessment: Assessment plan: -Acute congestive heart failure exacerbation. Also precipitated by uncontrolled atrial fibrillation.: Slow to respond 2-D echo. Continue IV Lasix 60 mg every 12. Fluid restriction. -Persistent atrial fibrillation with a rapid ventricular rate: Rate controlled IV Cardizem drip-discontinued. Eliquis. Lopressor 25 mg twice a day Telemetry. Follow with cardiology -Chronic kidney disease stage III likely nephrosclerosis Follow renal function -Moderate cognitive impairment possibly from late onset Alzheimer with dementia -Essential hypertension Lopressor. Cozaar. -BPH alfuZosin -Full code
[2023-05-31 19:55] LABS: Glucose,Whole Blood 183 mg/dL (70-110)
[2023-05-31] MEDS: ASCORBIC ACID 500 MG TAB PO SCH (20:08)
[2023-05-31] MEDS: MULTIVITAMINS, THERA 1 EACH TAB PO SCH (20:08)
[2023-05-31] MEDS: TAMSULOSIN 0.4 MG CAP.ER.24H PO SCH (20:08)
[2023-05-31] MEDS: INSULIN ASPART (NovoLOG) 100 UNIT/ML VIAL SQ SCH (20:43)
[2023-06-01 06:07] LABS: Glucose,Whole Blood 123 mg/dL (70-110)
[2023-06-01] MEDS: INSULIN ASPART (NovoLOG) 100 UNIT/ML VIAL SQ SCH ×4 (06:08→21:11)
[2023-06-01] MEDS: LOSARTAN 25 MG TAB PO SCH (07:57)
[2023-06-01] MEDS: FUROSEMIDE 10 MG/ML 10 ML VIAL IV SCH (07:57)
[2023-06-01] MEDS: APIXABAN 2.5 MG TABLET PO SCH ×2 (07:57→21:10)
[2023-06-01] MEDS: METOPROLOL TARTRATE 25 MG TAB PO SCH ×2 (07:57→21:09)
--- NOTE | 2023-06-01 09:02 | P.PN ---
Subjective Progress Note Date: 06/01/23 Principal diagnosis: CHF/atrial fibrillation The patient is an 83-year-old gentleman with nonischemic cardiomyopathy and EF around 40% and paroxysmal nature fibrillation as well as multiple comorbid conditions was admitted to the hospital with heart failure and evidence of right and left failure. He was seen and evaluated today. He continues to be short of breath. He continues to have severe bilateral lower extremity edema. The pressure has been marginal. The kidney function is worse. I am going to decrease the dose of Lasix and also hold losartan in the light of acute on chronic renal failure. He continues to be on anticoagulation. The examination is remarkable for irregular rhythm with initial breathing sounds bilaterally and severe bilateral lower extremity edema Assessment Nonischemic cardiomyopathy Paroxysmal atrial fibrillation Acute on chronic renal failure Multiple comorbid conditions Plan Decrease dose of Lasix Hold losartan Continue monitoring her kidney function and electrolytes Objective - Vital Signs Vital signs: Vital Signs Temp 97.9 F 06/01/23 07:51 Pulse 119 H 06/01/23 07:51 Resp 20 06/01/23 07:51 BP 114/71 06/01/23 07:51 Pulse Ox 96 06/01/23 08:10 FiO2 Intake & Output 05/31/23 06/01/23 06/01/23 18:59 06:59 18:59 Intake Total 1020 Output Total 600 800 Balance 420 -800 Weight 83.5 kg Intake: Oral 1020 Output: Urine 600 800 Other: Voiding Method Urinal Urinal - Labs CBC & Chem 7: 05/28/23 15:52 05/31/23 11:49 Labs: Abnormal Lab Results - Last 24 Hours (Table) 05/31/23 05/31/23 05/31/23 Range/Units 11:13 11:49 16:21 BUN 41 H (9-20) mg/dL Creatinine 2.13 H (0.66-1.25) mg/dL Glucose 183 H (74-99) mg/dL POC Glucose (mg/dL) 174 H 145 H (70-110) mg/dL Calcium 8.0 L (8.4-10.2) mg/dL 05/31/23 06/01/23 Range/Units 19:53 06:06 BUN (9-20) mg/dL Creatinine (0.66-1.25) mg/dL Glucose (74-99) mg/dL POC Glucose (mg/dL) 183 H 123 H (70-110) mg/dL Calcium (8.4-10.2) mg/dL
[2023-06-01] MEDS: FUROSEMIDE 10 MG/ML 4 ML VIAL IV SCH ×2 (09:06→21:10)
[2023-06-01 09:30] LABS: African American GFR (CKD) 29 (>60 ml/min/1.73 sqM); Anion Gap 9 mmol/L; Blood Urea Nitrogen 41 mg/dL (9-20); Calcium 8.1 mg/dL (8.4-10.2); Carbon Dioxide 32 mmol/L (22-30); Chloride 97 mmol/L (98-107); Glucose 147 mg/dL (74-99); Non-African American GFR(CKD) 25 (>60 ml/min/1.73 sqM); Potassium 3.3 mmol/L (3.5-5.1); Sodium 138 mmol/L (137-145)
[2023-06-01] MEDS ORDERED: Magnesium Replacement Protocol 1 EACH MISC MISCELLANE PRN ×2 (10:26→12:42)
[2023-06-01] MEDS ORDERED: Potassium Replacement Protocol 1 EACH MISC MISCELLANE PRN ×2 (10:26→12:42)
[2023-06-01] MEDS: POTASSIUM CHLORIDE ER 20 MEQ TAB.ER PO SCH (11:04)
[2023-06-01 11:38] LABS: Glucose,Whole Blood 126 mg/dL (70-110)
[2023-06-01] MEDS ORDERED: MAGNESIUM SULFATE-D5W PMX 1 GM in DEXTROSE/WATER 1 100ML.BAG IVPB ONE (12:50)
[2023-06-01 16:35] LABS: Glucose,Whole Blood 136 mg/dL (70-110)
--- NOTE | 2023-06-01 20:15 | P.PN ---
Subjective Very pleasant 83-year-old patient follows with Dr. Li. Patient was seen in the ER, accompanied by his . For over 2 weeks patient is being gradually become increasingly short of breath. Increased edema in the lower extremity. No cough. No fever or chills. Decreased appetite. Tired. No change in bowel pattern. No chest pain or palpi tation. Patient the ER was found to be in atrial fibrillation with uncontrolled rate. Started on IV Cardizem drip. 05/29/2023: Remains on IV Lasix. Tired. Short of breath. Patient was taken off Cardizem drip. Lopressor 25 mg twice a day. Eating about half his meals. Today his atrial fibrillation is around 100. 05/30/2023: A. fib heart rate went to 140s this morning. Lopressor increased. Remains on IV Lasix. Some shortness of breath still present. Eating well. Tired. 05/31/2023 Patient still have little dyspnea with talking No chest pain No new complaint Patient uses Eliquis and he hasn't at home Remains on IV Lasix 60 mg twice a day, creatinine 2.1 which is at baseline of 1.4-2.1 [employer] team of the case, metoprolol dose increased 50 up to 75 mg. Also he is on losartan 25 mg by mouth daily 06/01/2023 Patient dyspnea improving Creatinine at the same level II.2 Lower the dose of IV Lasix 60 mg down to 40 mg and hold losartan Legal Secretary Objective - Vital Signs Vital signs: Vital Signs Temp 97.9 F 06/01/23 07:51 Pulse 110 H 06/01/23 11:00 Resp 20 06/01/23 11:00 BP 103/65 06/01/23 11:00 Pulse Ox 97 06/01/23 11:00 FiO2 Intake & Output 05/31/23 06/01/23 06/01/23 18:59 06:59 18:59 Intake Total 1020 120 Output Total 600 800 400 Balance 420 -800 -280 Weight 83.5 kg Intake: Oral 1020 120 Output: Urine 600 800 400 Other: Voiding Method Urinal Urinal Urinal - Exam GENERAL: The patient is alert and oriented x3, not in any acute distress. Well developed, well nourished. HEENT: Pupils are round and equally reacting to light. EOMI. No scleral icterus. No conjunctival pallor. Normocephalic, atraumatic. No pharyngeal erythema. No thyromegaly. CARDIOVASCULAR: S1 and S2 present. No murmurs, rubs, or gallops. PULMONARY: Chest is clear to auscultation, no wheezing , no crackles. ABDOMEN: Soft, nontender, nondistended, normoactive bowel sounds. No palpable organomegaly. MUSCULOSKELETAL: No joint swelling or deformity. EXTREMITIES: No cyanosis, clubbing, or pedal edema. NEUROLOGICAL: Gross neurological examination did not reveal any focal deficits. SKIN: No rashes. no petechiae. - Labs CBC & Chem 7: 05/28/23 15:52 06/01/23 08:33 Labs: Abnormal Lab Results - Last 24 Hours (Table) 05/31/23 05/31/23 05/31/23 Range/Units 11:49 16:21 19:53 Potassium (3.5-5.1) mmol/L Chloride (98-107) mmol/L Carbon Dioxide (22-30) mmol/L BUN 41 H (9-20) mg/dL Creatinine 2.13 H (0.66-1.25) mg/dL Glucose 183 H (74-99) mg/dL POC Glucose (mg/dL) 145 H 183 H (70-110) mg/dL Calcium 8.0 L (8.4-10.2) mg/dL 06/01/23 06/01/23 06/01/23 Range/Units 06:06 08:33 11:36 Potassium 3.3 L (3.5-5.1) mmol/L Chloride 97 L (98-107) mmol/L Carbon Dioxide 32 H (22-30) mmol/L BUN 41 H (9-20) mg/dL Creatinine 2.29 H (0.66-1.25) mg/dL Glucose 147 H (74-99) mg/dL POC Glucose (mg/dL) 123 H 126 H (70-110) mg/dL Calcium 8.1 L (8.4-10.2) mg/dL Assessment and Plan Assessment: Assessment plan: -Acute congestive heart failure exacerbation. Also precipitated by uncontrolled atrial fibrillation.: Slow to respond 2-D echo. Continue IV Lasix 60 mg every 12. Fluid restriction. -Persistent atrial fibrillation with a rapid ventricular rate: Rate controlled IV Cardizem drip-discontinued. Eliquis. Lopressor 25 mg twice a day Telemetry. Follow with cardiology -Chronic kidney disease stage III likely nephrosclerosis Follow renal function -Moderate cognitive impairment possibly from late onset Alzheimer with dementia -Essential hypertension Lopressor. Cozaar. -BPH alfuZosin -Full code
[2023-06-01 20:19] LABS: Glucose,Whole Blood 178 mg/dL (70-110)
[2023-06-01] MEDS: MULTIVITAMINS, THERA 1 EACH TAB PO SCH (21:09)
[2023-06-01] MEDS: TAMSULOSIN 0.4 MG CAP.ER.24H PO SCH (21:10)
[2023-06-01] MEDS: ASCORBIC ACID 500 MG TAB PO SCH (21:13)
[2023-06-02 06:02] LABS: Glucose,Whole Blood 100 mg/dL (70-110)
[2023-06-02] MEDS: INSULIN ASPART (NovoLOG) 100 UNIT/ML VIAL SQ SCH ×4 (06:25→21:00)
[2023-06-02] MEDS: APIXABAN 2.5 MG TABLET PO SCH ×2 (09:17→21:14)
[2023-06-02] MEDS: METOPROLOL TARTRATE 25 MG TAB PO SCH (09:17)
[2023-06-02] MEDS: FUROSEMIDE 10 MG/ML 4 ML VIAL IV SCH ×2 (09:17→21:13)
[2023-06-02 11:29] LABS: Glucose,Whole Blood 223 mg/dL (70-110)
[2023-06-02 12:51] LABS: Basophils % (A) 0 %; Eosinophils # (A) 0.3 k/uL (0-0.7); Eosinophils % (A) 5 %; HCT 41.1 % (39.0-53.0); HGB 13.1 gm/dL (13.0-17.5); Hypochromasia Marked; Lymphocytes # (A) 0.8 k/uL (1.0-4.8); Lymphocytes % (A) 12 %; MCH 32.9 pg (25.0-35.0); MCHC 31.9 g/dL (31.0-37.0); MCV 102.9 fL (80.0-100.0); Macrocytosis Slight; Mean Platelet Volume 8.2; Monocytes # (A) 0.7 k/uL (0-1.0); Monocytes % (A) 11 %; Neutrophils # (A) 4.7 k/uL (1.3-7.7); Neutrophils % (A) 70 %; Platelet Count 147 k/uL (150-450); RBC 3.99 m/uL (4.30-5.90); RDW 13.6 % (11.5-15.5); WBC 6.7 k/uL (3.8-10.6)
[2023-06-02] MEDS: AMIODARONE 200 MG TAB PO SCH ×3 (13:04→21:14)
--- NOTE | 2023-06-02 13:59 | P.PN ---
Subjective Very pleasant 83-year-old patient follows with Dr. Li. Patient was seen in the ER, accompanied by his . For over 2 weeks patient is being gradually become increasingly short of breath. Increased edema in the lower extremity. No cough. No fever or chills. Decreased appetite. Tired. No change in bowel pattern. No chest pain or palpi tation. Patient the ER was found to be in atrial fibrillation with uncontrolled rate. Started on IV Cardizem drip. 05/29/2023: Remains on IV Lasix. Tired. Short of breath. Patient was taken off Cardizem drip. Lopressor 25 mg twice a day. Eating about half his meals. Today his atrial fibrillation is around 100. 05/30/2023: A. fib heart rate went to 140s this morning. Lopressor increased. Remains on IV Lasix. Some shortness of breath still present. Eating well. Tired. 05/31/2023 Patient still have little dyspnea with talking No chest pain No new complaint Patient uses Eliquis and he hasn't at home Remains on IV Lasix 60 mg twice a day, creatinine 2.1 which is at baseline of 1.4-2.1 [employer] team of the case, metoprolol dose increased 50 up to 75 mg. Also he is on losartan 25 mg by mouth daily 06/01/2023 Patient dyspnea improving Creatinine at the same level II.2 Lower the dose of IV Lasix 60 mg down to 40 mg and hold losartan 06/02/2023 Patient still tachycardic, metoprolol dose lower back 75 mg down to 50 mg and amiodarone 200 mg 3 times a day was started Her blood pressure 94/63 Heart rate is 136 Platelets slightly low 140 7K BMP is pending He remains on IV Lasix 40 mg twice daily at home dose of Eliquis 5 mg losartan 25 mg on hold Objective - Vital Signs Vital signs: Vital Signs Temp 97.9 F 06/02/23 08:00 Pulse 136 H 06/02/23 08:00 Resp 18 06/02/23 08:00 BP 94/63 06/02/23 08:00 Pulse Ox 95 06/02/23 08:00 FiO2 Intake & Output 06/01/23 06/02/23 06/02/23 18:59 06:59 18:59 Intake Total 360 180 Output Total 850 1400 500 Balance -490 -1400 -320 Weight 86 kg Intake: Oral 360 180 Output: Urine 850 1400 500 Other: Voiding Method External Catheter External Catheter External Catheter - Exam GENERAL: The patient is alert and oriented x3, not in any acute distress. Well developed, well nourished. HEENT: Pupils are round and equally reacting to light. EOMI. No scleral icterus. No conjunctival pallor. Normocephalic, atraumatic. No pharyngeal erythema. No thyromegaly. CARDIOVASCULAR: S1 and S2 present. No murmurs, rubs, or gallops. PULMONARY: Chest is clear to auscultation, no wheezing , no crackles. ABDOMEN: Soft, nontender, nondistended, normoactive bowel sounds. No palpable organomegaly. MUSCULOSKELETAL: No joint swelling or deformity. EXTREMITIES: No cyanosis, clubbing, or pedal edema. NEUROLOGICAL: Gross neurological examination did not reveal any focal deficits. SKIN: No rashes. no petechiae. - Labs CBC & Chem 7: 06/02/23 12:24 06/01/23 08:33 Labs: Abnormal Lab Results - Last 24 Hours (Table) 06/01/23 06/01/23 06/02/23 Range/Units 16:33 20:18 11:24 RBC (4.30-5.90) m/uL MCV (80.0-100.0) fL Plt Count (150-450) k/uL Lymphocytes # (1.0-4.8) k/uL POC Glucose (mg/dL) 136 H 178 H 223 H (70-110) mg/dL 06/02/23 Range/Units 12:24 RBC 3.99 L (4.30-5.90) m/uL MCV 102.9 H (80.0-100.0) fL Plt Count 147 L (150-450) k/uL Lymphocytes # 0.8 L (1.0-4.8) k/uL POC Glucose (mg/dL) (70-110) mg/dL Assessment and Plan Assessment: Assessment plan: -Acute congestive heart failure exacerbation. Also precipitated by uncontrolled atrial fibrillation.: Slow to respond 2-D echo. Continue IV Lasix 60 mg every 12. Fluid restriction. -Persistent atrial fibrillation with a rapid ventricular rate: Rate controlled IV Cardizem drip-discontinued. Eliquis. Lopressor 25 mg twice a day Telemetry. Follow with cardiology -Chronic kidney disease stage III likely nephrosclerosis Follow renal function -Moderate cognitive impairment possibly from late onset Alzheimer with dementia -Essential hypertension Lopressor. [place]ar[place]i. -BPH alfuZosin -Full code
[2023-06-02 14:01] LABS: African American GFR (CKD) 34 (>60 ml/min/1.73 sqM); Anion Gap 8 mmol/L; Blood Urea Nitrogen 41 mg/dL (9-20); Calcium 8.3 mg/dL (8.4-10.2); Carbon Dioxide 30 mmol/L (22-30); Chloride 101 mmol/L (98-107); Glucose 210 mg/dL (74-99); Non-African American GFR(CKD) 29 (>60 ml/min/1.73 sqM); Potassium 3.3 mmol/L (3.5-5.1); Sodium 139 mmol/L (137-145)
--- NOTE | 2023-06-02 14:15 | P.PN ---
Subjective Progress Note Date: 06/02/23 Principal diagnosis: CHF/atrial fibrillation The patient is an 83-year-old gentleman with nonischemic cardiomyopathy and EF around 40% and paroxysmal nature fibrillation as well as multiple comorbid conditions was admitted to the hospital with heart failure and evidence of right and left failure. He was seen and evaluated today. He continues to be short of breath. He continues to have severe bilateral lower extremity edema. The pressure has been marginal. The kidney function is worse. I am going to decrease the dose of Lasix and also hold losartan in the light of acute on chronic renal failure. He continues to be on anticoagulation. 06/02 Patient is seen today in follow-up. His heart rate has been atrial fibrillation running 130s mostly this morning currently in the 110s. He is maintained on Lasix 40 mg IV every 12 hours. Lab work will be ordered. She is to have significant lower extremity edema up to the thigh and scrotum. Blood pressure 94/63, pulse ox 95% on 2 L nasal cannula. The examination is remarkable for irregular rhythm with initial breathing sounds bilaterally and severe bilateral lower extremity edema Assessment Nonischemic cardiomyopathy Paroxysmal atrial fibrillation with RVR Acute on chronic renal failure Multiple comorbid conditions Plan Continue Lasix 40 mg every 12 hours Decrease Lopressor 50 mg twice daily and add amiodarone 200 mg 3 times daily Hold losartan Continue monitoring kidney function and electrolytes Nurse practitioner note has been reviewed, I agree with the documented findings and plan of care. Patient was seen and examined. Objective - Vital Signs Vital signs: Vital Signs Temp 97.9 F 06/02/23 08:00 Pulse 136 H 06/02/23 08:00 Resp 18 06/02/23 08:00 BP 94/63 06/02/23 08:00 Pulse Ox 95 06/02/23 08:00 FiO2 Intake & Output 06/01/23 06/02/23 06/02/23 18:59 06:59 18:59 Intake Total 360 180 Output Total 850 1400 500 Balance -490 -1400 -320 Weight 86 kg Intake: Oral 360 180 Output: Urine 850 1400 500 Other: Voiding Method External Catheter External Catheter External Catheter - Labs CBC & Chem 7: 06/02/23 12:24 06/02/23 12:24 Labs: Abnormal Lab Results - Last 24 Hours (Table) 06/01/23 06/01/23 06/02/23 Range/Units 16:33 20:18 11:24 POC Glucose (mg/dL) 136 H 178 H 223 H (70-110) mg/dL
[2023-06-02] MEDS ORDERED: Potassium Replacement Protocol 1 EACH MISC MISCELLANE PRN (14:53)
[2023-06-02 16:15] LABS: Glucose,Whole Blood 153 mg/dL (70-110)
[2023-06-02] MEDS: POTASSIUM BICARBONATE/CIT AC 20 MEQ TABLET.EFF PO SCH ×2 (17:30→17:57)
[2023-06-02 19:54] LABS: Glucose,Whole Blood 160 mg/dL (70-110)
[2023-06-02] MEDS: METOPROLOL TARTRATE 50 MG TAB PO SCH (21:13)
[2023-06-02] MEDS: MULTIVITAMINS, THERA 1 EACH TAB PO SCH (21:14)
[2023-06-02] MEDS: TAMSULOSIN 0.4 MG CAP.ER.24H PO SCH (21:14)
[2023-06-02] MEDS: ASCORBIC ACID 500 MG TAB PO SCH (21:14)
[2023-06-03 05:47] LABS: Glucose,Whole Blood 123 mg/dL (70-110)
[2023-06-03] MEDS: INSULIN ASPART (NovoLOG) 100 UNIT/ML VIAL SQ SCH ×4 (05:55→21:26)
[2023-06-03] MEDS: METOPROLOL TARTRATE 50 MG TAB PO SCH ×2 (09:07→21:41)
[2023-06-03] MEDS: AMIODARONE 200 MG TAB PO SCH ×3 (09:07→21:40)
[2023-06-03] MEDS: APIXABAN 2.5 MG TABLET PO SCH ×2 (09:07→21:40)
[2023-06-03] MEDS: FUROSEMIDE 10 MG/ML 4 ML VIAL IV SCH ×2 (09:08→21:40)
[2023-06-03 09:49] LABS: African American GFR (CKD) 34 (>60 ml/min/1.73 sqM); Anion Gap 3 mmol/L; Blood Urea Nitrogen 40 mg/dL (9-20); Calcium 8.1 mg/dL (8.4-10.2); Carbon Dioxide 38 mmol/L (22-30); Chloride 97 mmol/L (98-107); Glucose 136 mg/dL (74-99); Non-African American GFR(CKD) 30 (>60 ml/min/1.73 sqM); Potassium 3.4 mmol/L (3.5-5.1); Sodium 138 mmol/L (137-145)
[2023-06-03 11:27] LABS: Glucose,Whole Blood 162 mg/dL (70-110)
[2023-06-03] MEDS: POTASSIUM CHLORIDE ER 10 MEQ TAB.ER.PRT PO SCH ×2 (13:05→15:15)
[2023-06-03 14:35] VITALS: BMI 29.7
--- NOTE | 2023-06-03 14:54 | P.PN ---
Subjective Progress Note Date: 06/03/23 Principal diagnosis: CHF/atrial fibrillation The patient is an 83-year-old gentleman with nonischemic cardiomyopathy and EF around 40% and paroxysmal nature fibrillation as well as multiple comorbid conditions was admitted to the hospital with heart failure and evidence of right and left failure. He was seen and evaluated today. He continues to be short of breath. He continues to have severe bilateral lower extremity edema. The pressure has been marginal. The kidney function is worse. I am going to decrease the dose of Lasix and also hold losartan in the light of acute on chronic renal failure. He continues to be on anticoagulation. 06/02 Patient is seen today in follow-up. His heart rate has been atrial fibrillation running 130s mostly this morning currently in the 110s. He is maintained on Lasix 40 mg IV every 12 hours. Lab work will be ordered. She is to have significant lower extremity edema up to the thigh and scrotum. Blood pressure 94/63, pulse ox 95% on 2 L nasal cannula. 06/03 Patient remains in Afib w RVR at 127. Yesterday, Lopressor was decreased to 50 mg bid and amiodarone 200 mg tid was added. Patient remains on IV Lasix 40 mg every 12h. blood pressure 117/71, pulse ox 96% on 2 L. Repeat blood work reveals potassium 3.4 and has been replaced, BUN 40 and creatinine 2.01. Patient states that he feels better but continues to have a lot of edema. The examination is remarkable for irregular rhythm with initial breathing sounds bilaterally and severe bilateral lower extremity edema Assessment Nonischemic cardiomyopathy Paroxysmal atrial fibrillation with RVR Acute on chronic renal failure Multiple comorbid conditions Plan Continue Lasix 40 mg every 12 hours Continue Lopressor 50 mg twice daily and amiodarone 200 mg 3 times daily Hold losartan Continue monitoring kidney function and electrolytes Nurse practitioner note has been reviewed, I agree with the documented findings and plan of care. Patient was seen and examined. Objective - Vital Signs Vital signs: Vital Signs Temp 98.4 F 06/03/23 03:56 Pulse 127 H 06/03/23 03:56 Resp 18 06/03/23 03:56 BP 117/73 06/03/23 03:56 Pulse Ox 95 06/03/23 03:56 FiO2 Intake & Output 06/02/23 06/03/23 06/03/23 18:59 06:59 18:59 Intake Total 180 118 Output Total 616 1500 Balance -436 -1500 118 Intake: Oral 180 118 Output: Urine 500 1500 Post Void Residual 116 Other: Voiding Method External Catheter External Catheter - Labs CBC & Chem 7: 06/02/23 12:24 06/03/23 08:18 Labs: Abnormal Lab Results - Last 24 Hours (Table) 06/02/23 06/02/23 06/02/23 Range/Units 11:24 12:24 12:24 RBC 3.99 L (4.30-5.90) m/uL MCV 102.9 H (80.0-100.0) fL Plt Count 147 L (150-450) k/uL Lymphocytes # 0.8 L (1.0-4.8) k/uL Potassium 3.3 L (3.5-5.1) mmol/L Chloride (98-107) mmol/L Carbon Dioxide (22-30) mmol/L BUN 41 H (9-20) mg/dL Creatinine 2.02 H (0.66-1.25) mg/dL Glucose 210 H (74-99) mg/dL POC Glucose (mg/dL) 223 H (70-110) mg/dL Calcium 8.3 L (8.4-10.2) mg/dL 06/02/23 06/02/23 06/03/23 Range/Units 16:13 19:53 05:46 RBC (4.30-5.90) m/uL MCV (80.0-100.0) fL Plt Count (150-450) k/uL Lymphocytes # (1.0-4.8) k/uL Potassium (3.5-5.1) mmol/L Chloride (98-107) mmol/L Carbon Dioxide (22-30) mmol/L BUN (9-20) mg/dL Creatinine (0.66-1.25) mg/dL Glucose (74-99) mg/dL POC Glucose (mg/dL) 153 H 160 H 123 H (70-110) mg/dL Calcium (8.4-10.2) mg/dL 06/03/23 Range/Units 08:18 RBC (4.30-5.90) m/uL MCV (80.0-100.0) fL Plt Count (150-450) k/uL Lymphocytes # (1.0-4.8) k/uL Potassium 3.4 L (3.5-5.1) mmol/L Chloride 97 L (98-107) mmol/L Carbon Dioxide 38 H (22-30) mmol/L BUN 40 H (9-20) mg/dL Creatinine 2.01 H (0.66-1.25) mg/dL Glucose 136 H (74-99) mg/dL POC Glucose (mg/dL) (70-110) mg/dL Calcium 8.1 L (8.4-10.2) mg/dL
[2023-06-03 16:47] LABS: Glucose,Whole Blood 140 mg/dL (70-110)
[2023-06-03] MEDS ORDERED: ZINC OXIDE PASTE (Z-GUARD) 1 APPLIC TOPICAL PRN (18:38)
--- NOTE | 2023-06-03 19:47 | P.PN ---
Subjective Progress Note Date: 06/03/23 Patient is evaluated today on the medical floor. Continues on IV lasix. He has been resting in bed. He has significant lower extremity and scrotal edema however does state he is not having tightness in his thighs he does feel his LE edema is improving. Review of Systems Constitutional: Denied any fatigue denied any fever. Cardio vascular: denied any chest pain, palpitations Gastrointestinal: denied any nausea, vomiting, diarrhea Pulmonary: Denied any shortness of breath cough Neurologic denied any new focal deficits All inpatient medications were reviewed and appropriate changes in these medications as dictated in the interval history and assessment and plan. PHYSICAL EXAMINATION: GENERAL: The patient is alert and oriented x3, not in any acute distress. Well developed, well nourished. HEENT: Pupils are round and equally reacting to light. EOMI. No scleral icterus. No conjunctival pallor. Normocephalic, atraumatic. No pharyngeal erythema. No thyromegaly. CARDIOVASCULAR: S1 and S2 present. No murmurs, rubs, or gallops. PULMONARY: Chest is clear to auscultation, no wheezing or crackles. ABDOMEN: Soft, nontender, nondistended, normoactive bowel sounds. No palpable organomegaly. MUSCULOSKELETAL: No joint swelling or deformity. EXTREMITIES: No cyanosis, clubbing, or pedal edema. +2 lower extremity edema and scrotal edema NEUROLOGICAL: Gross neurological examination did not reveal any focal deficits. SKIN: No rashes. Assessment and Plan Acute systolic heart failure Nonischemic cardiomyopathy Paroxysmal atrial fibrillation with RVR requiring IV cardizem on admission Acute on chronic renal failure losartan is being held CKD stage III Moderate cognitive dementia; late onset alzheimers BPH GI prophylaxis DVT prophylaxis Do Not Resuscitate/Do Not Intubate Plan Patient continues on IV lasix recommending strict intake and out monitoring Recommend to KARUNA wrap lower extremity and elevate; also elevate scrotum Continue accuchecks ACHS and sliding scale insulin Continue amiodarone and metoprolol monitor heart rate Monitor renal function; repeat labs in AM PT/OT evaluation The impression and plan of care has been dictated by Yasmeen Russell, Nurse Practitioner as directed. Dr. Mike MD I have performed a history and physical examination and medical decision making of this patient, discussed the same with the dictator, and agree with the dictators assessment and plan as written, documented as a scribe. Based on total visit time, I have performed more than 50% of this visit. Objective - Vital Signs Vital signs: Vital Signs Temp 98.4 F 06/03/23 03:56 Pulse 127 H 06/03/23 03:56 Resp 18 06/03/23 03:56 BP 117/73 06/03/23 03:56 Pulse Ox 95 06/03/23 03:56 FiO2 Intake & Output 06/02/23 06/03/23 06/03/23 18:59 06:59 18:59 Intake Total 180 118 Output Total 616 1500 Balance -436 -1500 118 Intake: Oral 180 118 Output: Urine 500 1500 Post Void Residual 116 Other: Voiding Method External Catheter External Catheter - Labs CBC & Chem 7: 06/02/23 12:24 06/03/23 08:18 Labs: Abnormal Lab Results - Last 24 Hours (Table) 06/02/23 06/02/23 06/02/23 Range/Units 11:24 12:24 12:24 RBC 3.99 L (4.30-5.90) m/uL MCV 102.9 H (80.0-100.0) fL Plt Count 147 L (150-450) k/uL Lymphocytes # 0.8 L (1.0-4.8) k/uL Potassium 3.3 L (3.5-5.1) mmol/L Chloride (98-107) mmol/L Carbon Dioxide (22-30) mmol/L BUN 41 H (9-20) mg/dL Creatinine 2.02 H (0.66-1.25) mg/dL Glucose 210 H (74-99) mg/dL POC Glucose (mg/dL) 223 H (70-110) mg/dL Calcium 8.3 L (8.4-10.2) mg/dL 06/02/23 06/02/23 06/03/23 Range/Units 16:13 19:53 05:46 RBC (4.30-5.90) m/uL MCV (80.0-100.0) fL Plt Count (150-450) k/uL Lymphocytes # (1.0-4.8) k/uL Potassium (3.5-5.1) mmol/L Chloride (98-107) mmol/L Carbon Dioxide (22-30) mmol/L BUN (9-20) mg/dL Creatinine (0.66-1.25) mg/dL Glucose (74-99) mg/dL POC Glucose (mg/dL) 153 H 160 H 123 H (70-110) mg/dL Calcium (8.4-10.2) mg/dL 06/03/23 Range/Units 08:18 RBC (4.30-5.90) m/uL MCV (80.0-100.0) fL Plt Count (150-450) k/uL Lymphocytes # (1.0-4.8) k/uL Potassium 3.4 L (3.5-5.1) mmol/L Chloride 97 L (98-107) mmol/L Carbon Dioxide 38 H (22-30) mmol/L BUN 40 H (9-20) mg/dL Creatinine 2.01 H (0.66-1.25) mg/dL Glucose 136 H (74-99) mg/dL POC Glucose (mg/dL) (70-110) mg/dL Calcium 8.1 L (8.4-10.2) mg/dL Assessment and Plan Time with Patient: Less than 30
[2023-06-03 20:29] LABS: Glucose,Whole Blood 132 mg/dL (70-110)
[2023-06-03] MEDS: NYSTATIN 100,000 UNIT/GM POWD 15 GM TOPICAL SCH (21:30)
[2023-06-03] MEDS: MULTIVITAMINS, THERA 1 EACH TAB PO SCH (21:40)
[2023-06-03] MEDS: TAMSULOSIN 0.4 MG CAP.ER.24H PO SCH (21:40)
[2023-06-03] MEDS: ASCORBIC ACID 500 MG TAB PO SCH (21:40)
[2023-06-04 05:52] LABS: Glucose,Whole Blood 104 mg/dL (70-110)
[2023-06-04] MEDS: INSULIN ASPART (NovoLOG) 100 UNIT/ML VIAL SQ SCH ×4 (06:19→20:36)
[2023-06-04] MEDS: AMIODARONE 200 MG TAB PO SCH ×3 (09:11→20:42)
[2023-06-04] MEDS: NYSTATIN 100,000 UNIT/GM POWD 15 GM TOPICAL SCH ×2 (09:11→20:44)
[2023-06-04] MEDS: FUROSEMIDE 10 MG/ML 4 ML VIAL IV SCH (09:11)
[2023-06-04] MEDS: METOPROLOL TARTRATE 50 MG TAB PO SCH (09:11)
[2023-06-04] MEDS: APIXABAN 2.5 MG TABLET PO SCH ×2 (09:11→20:43)
[2023-06-04 10:54] LABS: Basophils % (A) 1 %; Eosinophils # (A) 0.1 k/uL (0-0.7); Eosinophils % (A) 2 %; HCT 39.6 % (39.0-53.0); HGB 12.5 gm/dL (13.0-17.5); Hypochromasia Moderate; Lymphocytes # (A) 0.6 k/uL (1.0-4.8); Lymphocytes % (A) 16 %; MCH 32.5 pg (25.0-35.0); MCHC 31.7 g/dL (31.0-37.0); MCV 102.4 fL (80.0-100.0); Macrocytosis Slight; Mean Platelet Volume 8.6; Monocytes # (A) 0.6 k/uL (0-1.0); Monocytes % (A) 15 %; Neutrophils # (A) 2.6 k/uL (1.3-7.7); Neutrophils % (A) 63 %; Platelet Count 122 k/uL (150-450); RBC 3.86 m/uL (4.30-5.90); WBC 4.1 k/uL (3.8-10.6)
[2023-06-04 11:33] LABS: Glucose,Whole Blood 230 mg/dL (70-110)
[2023-06-04] MEDS ORDERED: FUROSEMIDE 10 MG/ML 4 ML VIAL IV STA (11:39)
[2023-06-04 11:40] LABS: African American GFR (CKD) 38 (>60 ml/min/1.73 sqM); Anion Gap 6 mmol/L; Blood Urea Nitrogen 38 mg/dL (9-20); Carbon Dioxide 34 mmol/L (22-30); Chloride 96 mmol/L (98-107); Glucose 227 mg/dL (74-99); Non-African American GFR(CKD) 33 (>60 ml/min/1.73 sqM); Potassium 3.2 mmol/L (3.5-5.1); Sodium 136 mmol/L (137-145)
--- NOTE | 2023-06-04 13:39 | P.PN ---
Subjective Progress Note Date: 06/04/23 Principal diagnosis: CHF/atrial fibrillation The patient is an 83-year-old gentleman with nonischemic cardiomyopathy and EF around 40% and paroxysmal nature fibrillation as well as multiple comorbid conditions was admitted to the hospital with heart failure and evidence of right and left failure. He was seen and evaluated today. He continues to be short of breath. He continues to have severe bilateral lower extremity edema. The pressure has been marginal. The kidney function is worse. I am going to decrease the dose of Lasix and also hold losartan in the light of acute on chronic renal failure. He continues to be on anticoagulation. 06/02 Patient is seen today in follow-up. His heart rate has been atrial fibrillation running 130s mostly this morning currently in the 110s. He is maintained on Lasix 40 mg IV every 12 hours. Lab work will be ordered. She is to have significant lower extremity edema up to the thigh and scrotum. Blood pressure 94/63, pulse ox 95% on 2 L nasal cannula. 06/03 Patient remains in Afib w RVR at 127. Yesterday, Lopressor was decreased to 50 mg bid and amiodarone 200 mg tid was added. Patient remains on IV Lasix 40 mg every 12h. blood pressure 117/71, pulse ox 96% on 2 L. Repeat blood work reveals potassium 3.4 and has been replaced, BUN 40 and creatinine 2.01. Patient states that he feels better but continues to have a lot of edema. 06/04 Telemetry is atrial fibrillation 160 120. Patient states he is not feeling much better. He continues to have lower extremity edema. He is currently on Lasix 40 mg every 12 hours and Lopressor 50 mg twice daily, amiodarone 200 mg 3 times daily. Blood pressure 116/77. Repeat blood work reveals hemoglobin of 12.5. Potassium 3.2, BUN 39 creatinine 1.83. The examination is remarkable for irregular rhythm with initial breathing sounds bilaterally, + JVD, and severe bilateral lower extremity edema Assessment Nonischemic cardiomyopathy Paroxysmal atrial fibrillation with RVR Acute on chronic renal failure Multiple comorbid conditions Plan Increase Lasix to 80 mg every 12 hours Continue Lopressor and decreased to 25 mg twice daily and continue current dose of amiodarone 200 mg 3 times daily Hold losartan Continue monitoring kidney function and electrolytes Nurse practitioner note has been reviewed, I agree with the documented findings and plan of care. Patient was seen and examined. Objective - Vital Signs Vital signs: Vital Signs Temp 98.5 F 06/04/23 09:10 Pulse 135 H 06/04/23 09:10 Resp 16 06/04/23 09:10 BP 98/54 06/04/23 09:10 Pulse Ox 96 06/04/23 09:10 FiO2 Intake & Output 06/03/23 06/04/23 06/04/23 18:59 06:59 18:59 Intake Total 894 118 Output Total 1400 550 650 Balance -506 -550 -532 Weight 86 kg 114.8 kg Intake: Oral 894 118 Output: Urine 1400 550 650 Other: Voiding Method External Catheter External Catheter - Labs CBC & Chem 7: 06/04/23 10:12 06/04/23 09:56 Labs: Abnormal Lab Results - Last 24 Hours (Table) 06/03/23 06/03/23 06/04/23 Range/Units 16:45 20:27 10:12 RBC 3.86 L (4.30-5.90) m/uL Hgb 12.5 L (13.0-17.5) gm/dL MCV 102.4 H (80.0-100.0) fL Plt Count 122 L (150-450) k/uL Lymphocytes # 0.6 L (1.0-4.8) k/uL POC Glucose (mg/dL) 140 H 132 H (70-110) mg/dL 06/04/23 Range/Units 11:32 RBC (4.30-5.90) m/uL Hgb (13.0-17.5) gm/dL MCV (80.0-100.0) fL Plt Count (150-450) k/uL Lymphocytes # (1.0-4.8) k/uL POC Glucose (mg/dL) 230 H (70-110) mg/dL
[2023-06-04] MEDS ORDERED: POTASSIUM CHLORIDE ER 20 MEQ TAB.ER PO STA (14:24)
--- NOTE | 2023-06-04 15:29 | P.PN ---
Subjective Progress Note Date: 06/04/23 Patient is evaluated today on the medical floor. Continues on IV lasix. He has been resting in bed. He has significant lower extremity and scrotal edema however does state he is not having tightness in his thighs he does feel his LE edema is improving. 06/04/2023 Patient is evaluated today on the cardiac floor. He has been getting up to the bathroom. Continues on IV lasix which will be increased up to 80 mg Q12 hours. On oral amiodarone and oral metoprolol. He is anticoagulated with eliquis. Creatinine 1.83 today. Review of Systems Constitutional: Denied any fatigue denied any fever. Cardio vascular: denied any chest pain, palpitations Gastrointestinal: denied any nausea, vomiting, diarrhea Pulmonary: Denied any shortness of breath cough Neurologic denied any new focal deficits All inpatient medications were reviewed and appropriate changes in these medications as dictated in the interval history and assessment and plan. PHYSICAL EXAMINATION: GENERAL: The patient is alert and oriented x3, not in any acute distress. Well developed, well nourished. HEENT: Pupils are round and equally reacting to light. EOMI. No scleral icterus. No conjunctival pallor. Normocephalic, atraumatic. No pharyngeal erythema. No thyromegaly. CARDIOVASCULAR: S1 and S2 present. No murmurs, rubs, or gallops. PULMONARY: Chest is clear to auscultation, no wheezing or crackles. ABDOMEN: Soft, nontender, nondistended, normoactive bowel sounds. No palpable organomegaly. MUSCULOSKELETAL: No joint swelling or deformity. EXTREMITIES: No cyanosis, clubbing, or pedal edema. +2 lower extremity edema and scrotal edema NEUROLOGICAL: Gross neurological examination did not reveal any focal deficits. SKIN: No rashes. Assessment and Plan Acute systolic heart failure Nonischemic cardiomyopathy Paroxysmal atrial fibrillation with RVR requiring IV cardizem on admission Acute on chronic renal failure losartan is being held CKD stage III Moderate cognitive dementia; late onset alzheimers BPH; continue on flomax. -Diabetes mellitus type 2 with hyperglycemia GI prophylaxis DVT prophylaxis Do Not Resuscitate/Do Not Intubate Plan Patient continues on IV lasix recommending strict intake and out monitoring lasix has been increased to 80 mg Q12h. Recommend to KARUNA wrap lower extremity and elevate; also elevate scrotum Continue accuchecks ACHS and sliding scale insulin levemir has been added for improved glycemic control. Continue amiodarone and metoprolol monitor heart rate Monitor renal function; repeat labs in AM PT/OT evaluation The impression and plan of care has been dictated by Yasmeen Russell, Nurse Practitioner as directed. Dr. Mike MD I have performed a history and physical examination and medical decision making of this patient, discussed the same with the dictator, and agree with the dictators assessment and plan as written, documented as a scribe. Based on total visit time, I have performed more than 50% of this visit. Objective - Vital Signs Vital signs: Vital Signs Temp 98 F 06/04/23 12:30 Pulse 108 H 06/04/23 12:30 Resp 16 06/04/23 12:30 BP 116/77 06/04/23 12:30 Pulse Ox 95 06/04/23 12:30 FiO2 Intake & Output 06/03/23 06/04/23 06/04/23 18:59 06:59 18:59 Intake Total 894 358 Output Total 1400 550 650 Balance -506 -550 -292 Weight 86 kg 114.8 kg Intake: Oral 894 358 Output: Urine 1400 550 650 Other: Voiding Method External Catheter External Catheter - Labs CBC & Chem 7: 06/04/23 10:12 06/04/23 09:56 Labs: Abnormal Lab Results - Last 24 Hours (Table) 06/03/23 06/03/23 06/04/23 Range/Units 16:45 20:27 09:56 RBC (4.30-5.90) m/uL Hgb (13.0-17.5) gm/dL MCV (80.0-100.0) fL Plt Count (150-450) k/uL Lymphocytes # (1.0-4.8) k/uL Sodium 136 L (137-145) mmol/L Potassium 3.2 L (3.5-5.1) mmol/L Chloride 96 L (98-107) mmol/L Carbon Dioxide 34 H (22-30) mmol/L BUN 38 H (9-20) mg/dL Creatinine 1.83 H (0.66-1.25) mg/dL Glucose 227 H (74-99) mg/dL POC Glucose (mg/dL) 140 H 132 H (70-110) mg/dL Calcium 8.0 L (8.4-10.2) mg/dL 06/04/23 06/04/23 Range/Units 10:12 11:32 RBC 3.86 L (4.30-5.90) m/uL Hgb 12.5 L (13.0-17.5) gm/dL MCV 102.4 H (80.0-100.0) fL Plt Count 122 L (150-450) k/uL Lymphocytes # 0.6 L (1.0-4.8) k/uL Sodium (137-145) mmol/L Potassium (3.5-5.1) mmol/L Chloride (98-107) mmol/L Carbon Dioxide (22-30) mmol/L BUN (9-20) mg/dL Creatinine (0.66-1.25) mg/dL Glucose (74-99) mg/dL POC Glucose (mg/dL) 230 H (70-110) mg/dL Calcium (8.4-10.2) mg/dL Assessment and Plan Time with Patient: Less than 30
[2023-06-04 16:31] LABS: Glucose,Whole Blood 87 mg/dL (70-110)
[2023-06-04 20:04] LABS: Glucose,Whole Blood 111 mg/dL (70-110)
[2023-06-04] MEDS: TAMSULOSIN 0.4 MG CAP.ER.24H PO SCH (20:42)
[2023-06-04] MEDS: MULTIVITAMINS, THERA 1 EACH TAB PO SCH (20:42)
[2023-06-04] MEDS: METOPROLOL TARTRATE 25 MG TAB PO SCH (20:43)
[2023-06-04] MEDS: FUROSEMIDE 10 MG/ML 10 ML VIAL IV SCH (20:43)
[2023-06-04] MEDS: ASCORBIC ACID 500 MG TAB PO SCH (20:44)
[2023-06-04] MEDS: INSULIN DETEMIR (LEVEMIR) 100 UNIT/ML SYR SQ SCH (20:44)
[2023-06-05 06:11] LABS: Glucose,Whole Blood 85 mg/dL (70-110)
[2023-06-05] MEDS: INSULIN ASPART (NovoLOG) 100 UNIT/ML VIAL SQ SCH ×4 (06:13→20:10)
[2023-06-05] MEDS: METOPROLOL TARTRATE 25 MG TAB PO SCH ×2 (08:51→20:35)
[2023-06-05] MEDS: AMIODARONE 200 MG TAB PO SCH ×3 (08:51→20:33)
[2023-06-05] MEDS: APIXABAN 2.5 MG TABLET PO SCH ×2 (08:51→20:32)
[2023-06-05 09:12] LABS: African American GFR (CKD) 37 (>60 ml/min/1.73 sqM); Blood Urea Nitrogen 37 mg/dL (9-20); Chloride 93 mmol/L (98-107); Glucose 105 mg/dL (74-99); Magnesium 1.9 mg/dL (1.6-2.3); Non-African American GFR(CKD) 32 (>60 ml/min/1.73 sqM); Potassium 3.2 mmol/L (3.5-5.1); Sodium 138 mmol/L (137-145)
[2023-06-05 09:18] LABS: Anion Gap 8 mmol/L
[2023-06-05 09:21] LABS: Carbon Dioxide 37 mmol/L (22-30)
[2023-06-05 11:53] LABS: Glucose,Whole Blood 103 mg/dL (70-110)
[2023-06-05] MEDS: POTASSIUM CHLORIDE ER 20 MEQ TAB.ER PO SCH ×2 (12:26→14:38)
[2023-06-05] MEDS: FUROSEMIDE 10 MG/ML 10 ML VIAL IV SCH ×2 (12:26→20:32)
[2023-06-05] MEDS: NYSTATIN 100,000 UNIT/GM POWD 15 GM TOPICAL SCH ×2 (12:31→20:33)
--- NOTE | 2023-06-05 14:36 | P.PN ---
Subjective Progress Note Date: 06/05/23 Principal diagnosis: CHF/atrial fibrillation The patient is an 83-year-old gentleman with nonischemic cardiomyopathy and EF around 40% and paroxysmal nature fibrillation as well as multiple comorbid conditions was admitted to the hospital with heart failure and evidence of right and left failure. He was seen and evaluated today. He continues to be short of breath. He continues to have severe bilateral lower extremity edema. The pressure has been marginal. The kidney function is worse. I am going to decrease the dose of Lasix and also hold losartan in the light of acute on chronic renal failure. He continues to be on anticoagulation. 06/02 Patient is seen today in follow-up. His heart rate has been atrial fibrillation running 130s mostly this morning currently in the 110s. He is maintained on Lasix 40 mg IV every 12 hours. Lab work will be ordered. She is to have significant lower extremity edema up to the thigh and scrotum. Blood pressure 94/63, pulse ox 95% on 2 L nasal cannula. 06/03 Patient remains in Afib w RVR at 127. Yesterday, Lopressor was decreased to 50 mg bid and amiodarone 200 mg tid was added. Patient remains on IV Lasix 40 mg every 12h. blood pressure 117/71, pulse ox 96% on 2 L. Repeat blood work reveals potassium 3.4 and has been replaced, BUN 40 and creatinine 2.01. Patient states that he feels better but continues to have a lot of edema. 06/04 Telemetry is atrial fibrillation 160 120. Patient states he is not feeling much better. He continues to have lower extremity edema. He is currently on Lasix 40 mg every 12 hours and Lopressor 50 mg twice daily, amiodarone 200 mg 3 times daily. Blood pressure 116/77. Repeat blood work reveals hemoglobin of 12.5. Potassium 3.2, BUN 39 creatinine 1.83. 06/05 Patient patient remains in atrial fibrillation 120s to 130s. Kidney function is improving with BUN of 37 creatinine 1.87. He is continues to have lower extremity edema. Weight is down 3 kg. Fluid balance is -1056. Yesterday, Lasix was increased to 80 mg every 12 hours. The examination is remarkable for irregular rhythm with initial breathing sounds bilaterally, + JVD, and severe bilateral lower extremity edema Assessment Nonischemic cardiomyopathy Paroxysmal atrial fibrillation with RVR Acute on chronic renal failure Multiple comorbid conditions Plan Continue IV Lasix to 80 mg every 12 hours Continue Lopressor 25 mg twice daily and continue current dose of amiodarone 200 mg 3 times daily Hold losartan Continue monitoring kidney function and electrolytes Nurse practitioner note has been reviewed, I agree with the documented findings and plan of care. Patient was seen and examined. Objective - Vital Signs Vital signs: Vital Signs Temp 97.6 F 06/05/23 11:10 Pulse 117 H 06/05/23 11:10 Resp 16 06/05/23 11:10 BP 119/75 06/05/23 11:10 Pulse Ox 93 L 06/05/23 11:10 FiO2 Intake & Output 06/04/23 06/05/23 06/05/23 18:59 06:59 18:59 Intake Total 476 180 365 Output Total 1100 1950 Balance -624 -1770 365 Weight 82 kg Intake: Oral 476 180 365 Output: Urine 1100 1950 Other: Voiding Method External Catheter External Catheter - Labs CBC & Chem 7: 06/04/23 10:12 06/05/23 07:50 Labs: Abnormal Lab Results - Last 24 Hours (Table) 06/04/23 06/04/23 06/04/23 Range/Units 09:56 11:32 20:02 Sodium 136 L (137-145) mmol/L Potassium 3.2 L (3.5-5.1) mmol/L Chloride 96 L (98-107) mmol/L Carbon Dioxide 34 H (22-30) mmol/L BUN 38 H (9-20) mg/dL Creatinine 1.83 H (0.66-1.25) mg/dL Glucose 227 H (74-99) mg/dL POC Glucose (mg/dL) 230 H 111 H (70-110) mg/dL Calcium 8.0 L (8.4-10.2) mg/dL 06/05/23 Range/Units 07:50 Sodium (137-145) mmol/L Potassium 3.2 L (3.5-5.1) mmol/L Chloride 93 L (98-107) mmol/L Carbon Dioxide 37 H (22-30) mmol/L BUN 37 H (9-20) mg/dL Creatinine 1.87 H (0.66-1.25) mg/dL Glucose 105 H (74-99) mg/dL POC Glucose (mg/dL) (70-110) mg/dL Calcium 8.0 L (8.4-10.2) mg/dL
--- NOTE | 2023-06-05 16:00 | P.PN ---
Subjective Progress Note Date: 06/05/23 Patient is evaluated today on the medical floor. Continues on IV lasix. He has been resting in bed. He has significant lower extremity and scrotal edema however does state he is not having tightness in his thighs he does feel his LE edema is improving. 06/04/2023 Patient is evaluated today on the cardiac floor. He has been getting up to the bathroom. Continues on IV lasix which will be increased up to 80 mg Q12 hours. On oral amiodarone and oral metoprolol. He is anticoagulated with eliquis. Creatinine 1.83 today. 06/05/2023 Patient is evaluated today on the cardiac floor. He remains on IV lasix was increased to 80 mg every 12 hours. He continues with lower extremity edema and recommending to KARUNA wrap legs and keep elevated while sitting. Sodium 138, potassium 3.2, BUN 37 and a creatinine 1.87 today. Heart rate is coming down. 110s today. He has been weaned to room air with adequate oxygen saturations. Review of Systems Constitutional: Denied any fatigue denied any fever. Cardio vascular: denied any chest pain, palpitations Gastrointestinal: denied any nausea, vomiting, diarrhea Pulmonary: Denied any shortness of breath cough Neurologic denied any new focal deficits All inpatient medications were reviewed and appropriate changes in these medications as dictated in the interval history and assessment and plan. PHYSICAL EXAMINATION: GENERAL: The patient is alert and oriented x3, not in any acute distress. Well developed, well nourished. HEENT: Pupils are round and equally reacting to light. EOMI. No scleral icterus. No conjunctival pallor. Normocephalic, atraumatic. No pharyngeal erythema. No thyromegaly. CARDIOVASCULAR: S1 and S2 present. No murmurs, rubs, or gallops. PULMONARY: Chest is clear to auscultation, no wheezing or crackles. ABDOMEN: Soft, nontender, nondistended, normoactive bowel sounds. No palpable organomegaly. MUSCULOSKELETAL: No joint swelling or deformity. EXTREMITIES: No cyanosis, clubbing, or pedal edema. +2 lower extremity edema and scrotal edema NEUROLOGICAL: Gross neurological examination did not reveal any focal deficits. SKIN: No rashes. Assessment and Plan Acute systolic heart failure Nonischemic cardiomyopathy Paroxysmal atrial fibrillation with RVR requiring IV cardizem on admission Acute on chronic renal failure losartan is being held CKD stage III Moderate cognitive dementia; late onset alzheimers BPH; continue on flomax. -Diabetes mellitus type 2 with hyperglycemia GI prophylaxis DVT prophylaxis Do Not Resuscitate/Do Not Intubate Plan Patient continues on IV lasix recommending strict intake and out monitoring lasix has been increased to 80 mg Q12h. Recommend to KARUNA wrap lower extremity and elevate; also elevate scrotum Continue accuchecks ACHS and sliding scale insulin levemir has been added for improved glycemic control. Continue amiodarone and metoprolol monitor heart rate Monitor renal function; repeat labs in AM PT/OT evaluation The impression and plan of care has been dictated by Yasmeen Russell, Nurse Practitioner as directed. Dr. Mike MD I have performed a history and physical examination and medical decision making of this patient, discussed the same with the dictator, and agree with the dictators assessment and plan as written, documented as a scribe. Based on total visit time, I have performed more than 50% of this visit. Objective - Vital Signs Vital signs: Vital Signs Temp 97.6 F 06/05/23 11:10 Pulse 117 H 06/05/23 14:00 Resp 16 06/05/23 14:00 BP 119/75 06/05/23 11:10 Pulse Ox 93 L 06/05/23 11:10 FiO2 Intake & Output 06/04/23 06/05/23 06/05/23 18:59 06:59 18:59 Intake Total 476 180 483 Output Total 1100 1950 802 Balance -624 -1770 -319 Weight 82 kg Intake: Oral 476 180 483 Output: Urine 1100 1950 800 Stool 2 Other: Voiding Method External Catheter External Catheter - Labs CBC & Chem 7: 06/04/23 10:12 06/05/23 07:50 Labs: Abnormal Lab Results - Last 24 Hours (Table) 06/04/23 06/05/23 Range/Units 20:02 07:50 Potassium 3.2 L (3.5-5.1) mmol/L Chloride 93 L (98-107) mmol/L Carbon Dioxide 37 H (22-30) mmol/L BUN 37 H (9-20) mg/dL Creatinine 1.87 H (0.66-1.25) mg/dL Glucose 105 H (74-99) mg/dL POC Glucose (mg/dL) 111 H (70-110) mg/dL Calcium 8.0 L (8.4-10.2) mg/dL Assessment and Plan Time with Patient: Less than 30
[2023-06-05 16:46] LABS: Glucose,Whole Blood 106 mg/dL (70-110)
[2023-06-05 20:08] LABS: Glucose,Whole Blood 127 mg/dL (70-110)
[2023-06-05] MEDS: TAMSULOSIN 0.4 MG CAP.ER.24H PO SCH (20:33)
[2023-06-05] MEDS: MULTIVITAMINS, THERA 1 EACH TAB PO SCH (20:33)
[2023-06-05] MEDS: ASCORBIC ACID 500 MG TAB PO SCH (20:33)
[2023-06-05] MEDS: INSULIN DETEMIR (LEVEMIR) 100 UNIT/ML SYR SQ SCH (20:50)
[2023-06-06 04:18] LABS: Glucose,Whole Blood 69 mg/dL (70-110)
[2023-06-06 04:38] LABS: Glucose,Whole Blood 81 mg/dL (70-110)
[2023-06-06] MEDS: INSULIN ASPART (NovoLOG) 100 UNIT/ML VIAL SQ SCH ×4 (06:10→20:31)
[2023-06-06 06:12] LABS: Glucose,Whole Blood 136 mg/dL (70-110)
[2023-06-06 08:43] LABS: African American GFR (CKD) 37 (>60 ml/min/1.73 sqM); Blood Urea Nitrogen 35 mg/dL (9-20); Chloride 91 mmol/L (98-107); Glucose 95 mg/dL (74-99); Non-African American GFR(CKD) 32 (>60 ml/min/1.73 sqM); Potassium 3.6 mmol/L (3.5-5.1); Sodium 137 mmol/L (137-145)
[2023-06-06] MEDS: FUROSEMIDE 10 MG/ML 10 ML VIAL IV SCH (08:46)
[2023-06-06] MEDS: POTASSIUM CHLORIDE ER 20 MEQ TAB.ER PO SCH (08:47)
[2023-06-06] MEDS: APIXABAN 2.5 MG TABLET PO SCH ×2 (08:47→20:30)
[2023-06-06] MEDS: AMIODARONE 200 MG TAB PO SCH ×3 (08:47→20:30)
[2023-06-06] MEDS: METOPROLOL TARTRATE 25 MG TAB PO SCH (08:47)
[2023-06-06 08:50] LABS: Anion Gap 4 mmol/L
[2023-06-06] MEDS: NYSTATIN 100,000 UNIT/GM POWD 15 GM TOPICAL SCH ×2 (08:52→20:31)
[2023-06-06 09:05] LABS: Carbon Dioxide 42 mmol/L (22-30)
[2023-06-06] MEDS ORDERED: METOPROLOL TARTRATE 25 MG TAB PO STA (10:17)
[2023-06-06 11:27] LABS: Glucose,Whole Blood 100 mg/dL (70-110)
--- NOTE | 2023-06-06 13:29 | P.PN ---
Subjective Progress Note Date: 06/06/23 Patient is evaluated today on the medical floor. Continues on IV lasix. He has been resting in bed. He has significant lower extremity and scrotal edema however does state he is not having tightness in his thighs he does feel his LE edema is improving. 06/04/2023 Patient is evaluated today on the cardiac floor. He has been getting up to the bathroom. Continues on IV lasix which will be increased up to 80 mg Q12 hours. On oral amiodarone and oral metoprolol. He is anticoagulated with eliquis. Creatinine 1.83 today. 06/05/2023 Patient is evaluated today on the cardiac floor. He remains on IV lasix was increased to 80 mg every 12 hours. He continues with lower extremity edema and recommending to KARUNA wrap legs and keep elevated while sitting. Sodium 138, potassium 3.2, BUN 37 and a creatinine 1.87 today. Heart rate is coming down. 110s today. He has been weaned to room air with adequate oxygen saturations. 06/06/2023 Patient is evaluated today sitting up in bed lower extremities are KARUNA wrapped and continuing to have improved edema. His creatinine has continued to climb up to 1.9 today with a CO2 42. Lasix has been decreased down to 40 mg every 12 hours. Continue with strict intake and output. Review of Systems Constitutional: Denied any fatigue denied any fever. Cardio vascular: denied any chest pain, palpitations Gastrointestinal: denied any nausea, vomiting, diarrhea Pulmonary: Denied any shortness of breath cough Neurologic denied any new focal deficits All inpatient medications were reviewed and appropriate changes in these medications as dictated in the interval history and assessment and plan. PHYSICAL EXAMINATION: GENERAL: The patient is alert and oriented x3, not in any acute distress. Well developed, well nourished. HEENT: Pupils are round and equally reacting to light. EOMI. No scleral icterus. No conjunctival pallor. Normocephalic, atraumatic. No pharyngeal erythema. No thyromegaly. CARDIOVASCULAR: S1 and S2 present. No murmurs, rubs, or gallops. PULMONARY: Chest is clear to auscultation, no wheezing or crackles. ABDOMEN: Soft, nontender, nondistended, normoactive bowel sounds. No palpable organomegaly. MUSCULOSKELETAL: No joint swelling or deformity. EXTREMITIES: No cyanosis, clubbing, or pedal edema. +2 lower extremity edema and scrotal edema NEUROLOGICAL: Gross neurological examination did not reveal any focal deficits. SKIN: No rashes. Assessment and Plan Acute systolic heart failure Nonischemic cardiomyopathy Paroxysmal atrial fibrillation with RVR requiring IV cardizem on admission Acute on chronic renal failure losartan is being held CKD stage III Moderate cognitive dementia; late onset alzheimers BPH; continue on flomax. -Diabetes mellitus type 2 with hyperglycemia GI prophylaxis DVT prophylaxis Do Not Resuscitate/Do Not Intubate Plan Patient continues on IV lasix recommending strict intake and out monitoring lasix has been decreased to 40 mg 12 hours Recommend to KARUNA wrap lower extremity and elevate; also elevate scrotum Continue accuchecks ACHS and sliding scale insulin levemir has been added for improved glycemic control. Continue amiodarone and metoprolol monitor heart rate. metoprolol has been inc reased up to 50 mg twice a day today. Monitor renal function; repeat labs in AM PT/OT evaluation patient will be discharging to rehab when medically stable The impression and plan of care has been dictated by Yasmeen Russell, Nurse Practitioner as directed. Dr. Mike MD I have performed a history and physical examination and medical decision making of this patient, discussed the same with the dictator, and agree with the dictators assessment and plan as written, documented as a scribe. Based on total visit time, I have performed more than 50% of this visit. Objective - Vital Signs Vital signs: Vital Signs Temp 98.0 F 06/06/23 11:48 Pulse 118 H 06/06/23 11:48 Resp 14 06/06/23 11:48 BP 124/89 06/06/23 11:48 Pulse Ox 93 L 06/06/23 11:48 FiO2 Intake & Output 06/05/23 06/06/23 06/06/23 18:59 06:59 18:59 Intake Total 719 480 Output Total 1102 2550 701 Balance -383 -2550 -221 Weight 84.5 kg Intake: Oral 719 480 Output: Urine 1100 2550 700 Stool 2 1 Other: Voiding Method External Catheter External Catheter External Catheter - Labs CBC & Chem 7: 06/04/23 10:12 06/06/23 07:28 Labs: Abnormal Lab Results - Last 24 Hours (Table) 06/05/23 06/06/23 06/06/23 Range/Units 20:07 04:17 06:09 Chloride (98-107) mmol/L Carbon Dioxide (22-30) mmol/L BUN (9-20) mg/dL Creatinine (0.66-1.25) mg/dL POC Glucose (mg/dL) 127 H 69 L 136 H (70-110) mg/dL Calcium (8.4-10.2) mg/dL 06/06/23 Range/Units 07:28 Chloride 91 L (98-107) mmol/L Carbon Dioxide 42 H* (22-30) mmol/L BUN 35 H (9-20) mg/dL Creatinine 1.89 H (0.66-1.25) mg/dL POC Glucose (mg/dL) (70-110) mg/dL Calcium 8.0 L (8.4-10.2) mg/dL Assessment and Plan Time with Patient: Less than 30
--- NOTE | 2023-06-06 13:59 | P.PN ---
Subjective Progress Note Date: 06/06/23 Principal diagnosis: CHF/atrial fibrillation The patient is an 83-year-old gentleman with nonischemic cardiomyopathy and EF around 40% and paroxysmal nature fibrillation as well as multiple comorbid conditions was admitted to the hospital with heart failure and evidence of right and left failure. He was seen and evaluated today. He continues to be short of breath. He continues to have severe bilateral lower extremity edema. The pressure has been marginal. The kidney function is worse. I am going to decrease the dose of Lasix and also hold losartan in the light of acute on chronic renal failure. He continues to be on anticoagulation. 06/02 Patient is seen today in follow-up. His heart rate has been atrial fibrillation running 130s mostly this morning currently in the 110s. He is maintained on Lasix 40 mg IV every 12 hours. Lab work will be ordered. She is to have significant lower extremity edema up to the thigh and scrotum. Blood pressure 94/63, pulse ox 95% on 2 L nasal cannula. 06/03 Patient remains in Afib w RVR at 127. Yesterday, Lopressor was decreased to 50 mg bid and amiodarone 200 mg tid was added. Patient remains on IV Lasix 40 mg every 12h. blood pressure 117/71, pulse ox 96% on 2 L. Repeat blood work reveals potassium 3.4 and has been replaced, BUN 40 and creatinine 2.01. Patient states that he feels better but continues to have a lot of edema. 06/04 Telemetry is atrial fibrillation 160 120. Patient states he is not feeling much better. He continues to have lower extremity edema. He is currently on Lasix 40 mg every 12 hours and Lopressor 50 mg twice daily, amiodarone 200 mg 3 times daily. Blood pressure 116/77. Repeat blood work reveals hemoglobin of 12.5. Potassium 3.2, BUN 39 creatinine 1.83. 06/05 Patient patient remains in atrial fibrillation 120s to 130s. Kidney function is improving with BUN of 37 creatinine 1.87. He is continues to have lower extremity edema. Weight is down 3 kg. Fluid balance is -1056. Yesterday, Lasix was increased to 80 mg every 12 hours. 06/06 Patient remains in atrial fibrillation running between 100 620. Blood pressure 114/78. Yesterday, will continue Lopressor 25 mg twice daily and amiodarone at 200 mg 3 times daily. Patient is currently on IV Lasix 80 mg every 12 hours and losartan is on hold. Repeat blood work reveals potassium 3.6, BUN 35 creatinine 1.89 which is stable with minimal improvement. The examination is remarkable for irregular rhythm with initial breathing sounds bilaterally, + JVD, and severe bilateral lower extremity edema Assessment Nonischemic cardiomyopathy Paroxysmal atrial fibrillation with RVR Acute on chronic renal failure Multiple comorbid conditions Plan Decrease IV Lasix to 40 mg every 12 hours Increase Lopressor to 50 mg twice daily and continue current dose of amiodarone 200 mg 3 times daily Hold losartan Continue monitoring kidney function and electrolytes Continue telemetry monitoring Nurse practitioner note has been reviewed, I agree with the documented findings and plan of care. Patient was seen and examined. Objective - Vital Signs Vital signs: Vital Signs Temp 98.0 F 06/06/23 11:48 Pulse 118 H 06/06/23 11:48 Resp 14 06/06/23 11:48 BP 124/89 06/06/23 11:48 Pulse Ox 93 L 06/06/23 11:48 FiO2 Intake & Output 06/05/23 06/06/23 06/06/23 18:59 06:59 18:59 Intake Total 719 480 Output Total 1102 2550 701 Balance -383 -2550 -221 Weight 84.5 kg Intake: Oral 719 480 Output: Urine 1100 2550 700 Stool 2 1 Other: Voiding Method External Catheter External Catheter External Catheter - Labs CBC & Chem 7: 06/04/23 10:12 06/06/23 07:28 Labs: Abnormal Lab Results - Last 24 Hours (Table) 06/05/23 06/06/23 06/06/23 Range/Units 20:07 04:17 06:09 Chloride (98-107) mmol/L Carbon Dioxide (22-30) mmol/L BUN (9-20) mg/dL Creatinine (0.66-1.25) mg/dL POC Glucose (mg/dL) 127 H 69 L 136 H (70-110) mg/dL Calcium (8.4-10.2) mg/dL 06/06/23 Range/Units 07:28 Chloride 91 L (98-107) mmol/L Carbon Dioxide 42 H* (22-30) mmol/L BUN 35 H (9-20) mg/dL Creatinine 1.89 H (0.66-1.25) mg/dL POC Glucose (mg/dL) (70-110) mg/dL Calcium 8.0 L (8.4-10.2) mg/dL
[2023-06-06 16:49] LABS: Glucose,Whole Blood 115 mg/dL (70-110)
[2023-06-06 20:13] LABS: Glucose,Whole Blood 152 mg/dL (70-110)
[2023-06-06] MEDS: METOPROLOL TARTRATE 50 MG TAB PO SCH (20:30)
[2023-06-06] MEDS: FUROSEMIDE 10 MG/ML 4 ML VIAL IV SCH (20:30)
[2023-06-06] MEDS: TAMSULOSIN 0.4 MG CAP.ER.24H PO SCH (20:30)
[2023-06-06] MEDS: ASCORBIC ACID 500 MG TAB PO SCH (20:30)
[2023-06-06] MEDS: MULTIVITAMINS, THERA 1 EACH TAB PO SCH (20:30)
[2023-06-06] MEDS: INSULIN DETEMIR (LEVEMIR) 100 UNIT/ML SYR SQ SCH (20:31)
[2023-06-07 05:53] LABS: Glucose,Whole Blood 110 mg/dL (70-110)
[2023-06-07] MEDS: INSULIN ASPART (NovoLOG) 100 UNIT/ML VIAL SQ SCH ×5 (05:53→20:03)
[2023-06-07] MEDS: METOPROLOL TARTRATE 50 MG TAB PO SCH ×2 (08:32→20:03)
[2023-06-07] MEDS: APIXABAN 2.5 MG TABLET PO SCH ×2 (08:32→20:04)
[2023-06-07] MEDS: AMIODARONE 200 MG TAB PO SCH ×3 (08:32→20:04)
[2023-06-07] MEDS: POTASSIUM CHLORIDE ER 20 MEQ TAB.ER PO SCH (08:32)
[2023-06-07] MEDS: FUROSEMIDE 10 MG/ML 4 ML VIAL IV SCH ×2 (08:32→20:03)
[2023-06-07 09:26] LABS: African American GFR (CKD) 39 (>60 ml/min/1.73 sqM); Blood Urea Nitrogen 35 mg/dL (9-20); Calcium 7.9 mg/dL (8.4-10.2); Chloride 91 mmol/L (98-107); Glucose 181 mg/dL (74-99); Magnesium 1.8 mg/dL (1.6-2.3); Non-African American GFR(CKD) 33 (>60 ml/min/1.73 sqM); Potassium 3.3 mmol/L (3.5-5.1); Sodium 137 mmol/L (137-145)
[2023-06-07 10:20] LABS: Anion Gap 5 mmol/L
[2023-06-07 10:21] LABS: Carbon Dioxide 41 mmol/L (22-30)
[2023-06-07] MEDS ORDERED: acetaZOLAMIDE 250 MG TAB PO SCH (11:30)
[2023-06-07 11:33] LABS: Glucose,Whole Blood 173 mg/dL (70-110)
[2023-06-07] MEDS: NYSTATIN 100,000 UNIT/GM POWD 15 GM TOPICAL SCH ×2 (11:45→20:04)
[2023-06-07 16:43] LABS: Glucose,Whole Blood 105 mg/dL (70-110)
--- NOTE | 2023-06-07 18:45 | P.PN ---
Subjective Progress Note Date: 06/07/23 The patient is an 83-year-old gentleman with nonischemic cardiomyopathy and EF around 40% and paroxysmal nature fibrillation as well as multiple comorbid conditions was admitted to the hospital with heart failure and evidence of right and left failure. He was seen and evaluated today. He continues to be short of breath. He continues to have severe bilateral lower extremity edema. The pressure has been marginal. The kidney function is worse. I am going to decrease the dose of Lasix and also hold losartan in the light of acute on chronic renal failure. He continues to be on anticoagulation. 06/02 Patient is seen today in follow-up. His heart rate has been atrial fibrillation running 130s mostly this morning currently in the 110s. He is maintained on Lasix 40 mg IV every 12 hours. Lab work will be ordered. She is to have significant lower extremity edema up to the thigh and scrotum. Blood pressure 94/63, pulse ox 95% on 2 L nasal cannula. 06/03 Patient remains in Afib w RVR at 127. Yesterday, Lopressor was decreased to 50 mg bid and amiodarone 200 mg tid was added. Patient remains on IV Lasix 40 mg every 12h. blood pressure 117/71, pulse ox 96% on 2 L. Repeat blood work reve als potassium 3.4 and has been replaced, BUN 40 and creatinine 2.01. Patient states that he feels better but continues to have a lot of edema. 06/04 Telemetry is atrial fibrillation 160 120. Patient states he is not feeling much better. He continues to have lower extremity edema. He is currently on Lasix 40 mg every 12 hours and Lopressor 50 mg twice daily, amiodarone 200 mg 3 times daily. Blood pressure 116/77. Repeat blood work reveals hemoglobin of 12.5. Potassium 3.2, BUN 39 creatinine 1.83. 06/05 Patient patient remains in atrial fibrillation 120s to 130s. Kidney function is improving with BUN of 37 creatinine 1.87. He is continues to have lower extremity edema. Weight is down 3 kg. Fluid balance is -1056. Yesterday, Lasix was increased to 80 mg every 12 hours. 06/06 Patient remains in atrial fibrillation running between 100 620. Blood pressure 114/78. Yesterday, will continue Lopressor 25 mg twice daily and amiodarone at 200 mg 3 times daily. Patient is currently on IV Lasix 80 mg every 12 hours and losartan is on hold. Repeat blood work reveals potassium 3.6, BUN 35 creatinine 1.89 which is stable with minimal improvement. 06/07 BP 121/66, heart rate 90 beats a minute Creatinine 1.8, stable, BUN 35, bicarbonate 41. Kidney function has been stable on current regimen On exam His lower extremity swelling has much improved as compared to yesterday. He has 1+ pitting edema in bilateral extremity Abdomen is distended but soft and nontender Irregularly irregular pulse, no murmurs appreciated Mildly elevated JVD Reduced inspiratory effort, no crackles in upper lung [place]. 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 Agree with trial of Diamox. Lopressor to 50 mg twice daily and continue current dose of amiodarone 200 mg 3 times daily Hold losartan Continue monitoring kidney function and electrolytes Continue telemetry monitoring Possible discharge tomorrow, if renal function stable. donot discharge home on diamox. Use bumex 1 mg BID for home diuretic Objective - Vital Signs Vital signs: Vital Signs Temp 97.7 F 06/07/23 08:30 Pulse 119 H 06/07/23 16:02 Resp 18 06/07/23 16:02 BP 121/66 06/07/23 16:02 Pulse Ox 95 06/07/23 16:02 FiO2 Intake & Output 06/06/23 06/07/23 06/07/23 18:59 06:59 18:59 Intake Total 720 360 354 Output Total 5526 777 8137 Balance -481 440 -1446 Weight 109.2 kg Intake: Oral 720 360 354 Output: Urine 5425 467 2925 Stool 1 Other: Voiding Method External Catheter External Catheter External Catheter # Voids 1 # Bowel Movements 1 - Labs CBC & Chem 7: 06/04/23 10:12 06/07/23 08:02 Labs: Abnormal Lab Results - Last 24 Hours (Table) 06/06/23 06/07/23 06/07/23 Range/Units 20:10 08:02 11:31 Potassium 3.3 L (3.5-5.1) mmol/L Chloride 91 L (98-107) mmol/L Carbon Dioxide 41 H* (22-30) mmol/L BUN 35 H (9-20) mg/dL Creatinine 1.82 H (0.66-1.25) mg/dL Glucose 181 H (74-99) mg/dL POC Glucose (mg/dL) 152 H 173 H (70-110) mg/dL Calcium 7.9 L (8.4-10.2) mg/dL
[2023-06-07] MEDS: acetaZOLAMIDE 250 MG TAB PO SCH (19:29)
[2023-06-07 19:47] LABS: Glucose,Whole Blood 197 mg/dL (70-110)
[2023-06-07] MEDS: MULTIVITAMINS, THERA 1 EACH TAB PO SCH (20:03)
[2023-06-07] MEDS: INSULIN DETEMIR (LEVEMIR) 100 UNIT/ML SYR SQ SCH (20:03)
[2023-06-07] MEDS: TAMSULOSIN 0.4 MG CAP.ER.24H PO SCH (20:04)
[2023-06-07] MEDS: ASCORBIC ACID 500 MG TAB PO SCH (20:04)
--- NOTE | 2023-06-08 01:01 | P.PN ---
Progress Note - Text Progress Note Date: 06/07/23 Chief Complaint: Short of breath Very pleasant 83-year-old patient follows with Dr. Li. Patient was seen in the ER, accompanied by his . For over 2 weeks patient is being gradually become increasingly short of breath. Increased edema in the lower extremity. No cough. No fever or chills. Decreased appetite. Tired. No change in bowel pattern. No chest pain or palpitation. Patient the ER was found to be in atrial fibrillation with uncontrolled rate. Started on IV Cardizem drip. 05/29/2023: Remains on IV Lasix. Tired. Short of breath. Patient was taken off Cardizem drip. Lopressor 25 mg twice a day. Eating about half his meals. Today his atrial fibrillation is around 100. 06/04/2023 Patient is evaluated today on the cardiac floor. He has been getting up to the bathroom. Continues on IV lasix which will be increased up to 80 mg Q12 hours. On oral amiodarone and oral metoprolol. He is anticoagulated with eliquis. Creatinine 1.83 today. 06/05/2023 Patient is evaluated today on the cardiac floor. He remains on IV lasix was increased to 80 mg every 12 hours. He continues with lower extremity edema and recommending to JASWINDER wrap legs and keep elevated while sitting. Sodium 138, potassium 3.2, BUN 37 and a creatinine 1.87 today. Heart rate is coming down. 110s today. He has been weaned to room air with adequate oxygen saturations. 06/06/2023 Patient is evaluated today sitting up in bed lower extremities are JASWINDER wrapped and continuing to have improved edema. His creatinine has continued to climb up to 1.9 today with a CO2 42. Lasix has been decreased down to 40 mg every 12 hours. Continue with strict intake and output. 06/07/2023: on IV Lasix 40 mg every 12. Metabolic alkalosis. Diamox added. Fluid restriction. Breathing better. Jaswinder wrap lower extremity. Active Medications Acetaminophen (Acetaminophen Tab 325 Mg Tab) 650 mg PO Q6HR PRN PRN Reason: Mild Pain or Fever > 100.5 Acetazolamide (Acetazolamide 250 Mg Tab) 250 mg PO DAILY [facility] Last Admin: 06/07/23 19:29 Dose: 250 mg Alprazolam (Alprazolam 0.25 Mg Tab) 0.25 mg PO Q6HR PRN PRN Reason: Anxiety Amiodarone HCl (Amiodarone 200 Mg Tab) 200 mg PO TID [facility] Last Admin: 06/07/23 20:04 Dose: 200 mg Apixaban (Apixaban 2.5 Mg Tablet) 2.5 mg PO BID [facility]; Protocol Last Admin: 06/07/23 20:04 Dose: 2.5 mg Ascorbic Acid (Ascorbic Acid 500 Mg Tab) 1,[address] [facility] Last Admin: 06/07/23 20:04 Dose: 1,000 mg Calcium Carbonate/Glycine (Calcium Carbonate 500 Mg Chewable) 1,000 mg PO Q4HR PRN PRN Reason: Dyspepsia Furosemide (Furosemide 10 Mg/Ml 4 Ml Vial) 40 mg IV Q12HR [facility] Last Admin: 06/07/23 20:03 Dose: 40 mg Insulin Aspart (Insulin Aspart (Novolog) 100 Unit/Ml Vial) 0 unit SQ [facility]; Protocol Last Admin: 06/07/23 20:03 Dose: Not Given Insulin Detemir (Insulin Detemir (Levemir) 100 Unit/Ml Syr) [address] [facility] Last Admin: 06/07/23 20:03 Dose: Not Given Lactulose (Lactulose 20 Gm/30 Ml Cup) 20 gm PO DAILY PRN PRN Reason: Constipation Last Admin: 05/30/23 08:48 Dose: 20 gm Melatonin (Melatonin 3 Mg Tablet) 3 mg PO HS PRN PRN Reason: Insomnia Metoprolol Tartrate (Metoprolol Tartrate 50 Mg Tab) 50 mg PO BID [facility] Last Admin: 06/07/23 20:03 Dose: 50 mg Miscellaneous Information (Magnesium Replacement Protocol 1 Each Misc) 1 each MISCELLANE DAILY PRN; Protocol PRN Reason: Per Protocol Miscellaneous Information (Potassium Replacement Protocol 1 Each Misc) 1 each MISCELLANE DAILY PRN; Protocol PRN Reason: Per Protocol Multivitamins (Multivitamins, Thera 1 Each Tab) 1 each PO HS [facility] Last Admin: 06/07/23 20:03 Dose: 1 each Naloxone HCl (Naloxone 0.4 Mg/Ml 1 Ml Vial) 0.2 mg IV Q2M PRN PRN Reason: Opioid Reversal Nitroglycerin (Nitroglycerin Sl Tabs 0.4 Mg Tab) 0.4 mg SUBLINGUAL Q5M PRN PRN Reason: Chest Pain Nystatin (Nystatin 100,000 Unit/Gm Powd 15 Gm) 1 applic TOPICAL BID [facility]; Protocol Last Admin: 06/07/23 20:04 Dose: 1 applic Ondansetron HCl (Ondansetron 4 Mg/2 Ml Vial) 4 mg IVP Q8HR PRN PRN Reason: Nausea And Vomiting Petrolatum (Zinc Oxide Paste (Z-Guard) 1 Applic) 1 applic TOPICAL BID PRN; Protocol PRN Reason: Wound Healing Last Admin: 06/04/23 20:42 Dose: 1 applic Potassium Chloride (Potassium Chloride Er 20 Meq Tab.Er) 20 meq PO DAILY [facility] Last Admin: 06/07/23 08:32 Dose: 20 meq Tamsulosin HCl (Tamsulosin 0.4 Mg Cap.Er.24h) 0.4 mg PO HS [facility] Last Admin: 06/07/23 20:04 Dose: 0.4 mg Social history: . Retired. Nonsmoker. Alcohol rarely. Physical examination: VITAL SIGNS: 97.7, 118, 18, 1 21 x 67, 93% room air GENERAL: Laying in bed, not in distress EYES: Pupils equal. Conjunctiva normal. HEENT: External appearance of nose and ears normal, oral cavity grossly normal. NECK: Neck veins prominent; masses not palpable. HEART: Irregular heart sounds; significant edema. LUNGS: Respiratory rate increased; decreased breath sounds. ABDOMEN: Soft, distended nontender, liver spleen not palpable, no masses palpable. PSYCH: Able to answer simple questions. A bit forgetfull. MUSCULOSKELETAL:No Clubbing/cyanosis;muscles-grossly intact. OA INVESTIGATIONS, reviewed in the clinical context: 06/07/2023: Potassium 3.3 bicarb 41 BUN 35 creatinine 1.8 to 05/29/2023: Potassium 4.4 BUN 40 creatinine 1.98 05/28/2023: White count 6.6 hemoglobin 12.8 platelets 150 potassium 4.3 BUN 36 creatinine 1.85 Troponin I less than 0.012 ProBNP 4000 EKG tracing personally reviewed by me: Atrial fibrillation rate 124 Chest x-ray film personally reviewed by me-some cephalization of vessels. Left pleural effusion Assessment plan: -Acute congestive heart failure exacerbation due to dysfunction EF 45-50%. Also precipitated by uncontrolled atrial fibrillation.: Probing Continue IV Lasix 40 mg every 12. Fluid restriction. Diamox -Persistent atrial fibrillation with a rapid ventricular rate: Rate controlled IV Cardizem drip-discontinued. Eliquis. Lopressor 25 mg twice a day Telemetry. Follow with cardiology -Metabolic alkalosis from diuresis Add Diamox -Chronic kidney disease stage III likely nephrosclerosis Follow renal function -Moderate cognitive impairment possibly from late onset Alzheimer with dementia -Essential hypertension Lopressor. Cozaar. -BPH alfuZosin -DO NOT RESUSCITATE Past Medical History Past Medical History: CVA/TIA, Diabetes Mellitus Additional Past Medical History / Comment(s): Type 2 diabetic History of Any Multi-Drug Resistant Organisms: None Reported Past Surgical History: Appendectomy, Prostate Surgery Additional Past Surgical History / Comment(s): prostate Past Anesthesia/Blood Transfusion Reactions: No Reported Reaction Past Psychological History: No Psychological Hx Reported Smoking Status: Never smoker Past Alcohol Use History: Rare Past Drug Use History: None Reported
[2023-06-08 06:09] LABS: Glucose,Whole Blood 109 mg/dL (70-110)
[2023-06-08] MEDS: INSULIN ASPART (NovoLOG) 100 UNIT/ML VIAL SQ SCH ×4 (06:10→20:33)
[2023-06-08] MEDS: AMIODARONE 200 MG TAB PO SCH (07:38)
[2023-06-08] MEDS: APIXABAN 2.5 MG TABLET PO SCH ×2 (07:38→20:33)
[2023-06-08] MEDS: POTASSIUM CHLORIDE ER 20 MEQ TAB.ER PO SCH (07:38)
[2023-06-08] MEDS: METOPROLOL TARTRATE 50 MG TAB PO SCH ×2 (07:38→20:33)
[2023-06-08] MEDS: acetaZOLAMIDE 250 MG TAB PO SCH (07:39)
[2023-06-08] MEDS: FUROSEMIDE 10 MG/ML 4 ML VIAL IV SCH (08:20)
[2023-06-08 11:19] LABS: Glucose,Whole Blood 125 mg/dL (70-110)
[2023-06-08 14:33] LABS: African American GFR (CKD) 28 (>60 ml/min/1.73 sqM); Anion Gap 6 mmol/L; Blood Urea Nitrogen 37 mg/dL (9-20); Calcium 8.1 mg/dL (8.4-10.2); Carbon Dioxide 39 mmol/L (22-30); Chloride 93 mmol/L (98-107); Glucose 163 mg/dL (74-99); Non-African American GFR(CKD) 24 (>60 ml/min/1.73 sqM); Potassium 3.4 mmol/L (3.5-5.1); Sodium 138 mmol/L (137-145)
--- NOTE | 2023-06-08 14:46 | P.PN ---
Subjective Progress Note Date: 06/08/23 The patient is an 83-year-old gentleman with nonischemic cardiomyopathy and EF around 40% and paroxysmal nature fibrillation as well as multiple comorbid conditions was admitted to the hospital with heart failure and evidence of right and left failure. He was seen and evaluated today. He continues to be short of breath. He continues to have severe bilateral lower extremity edema. The pressure has been marginal. The kidney function is worse. I am going to decrease the dose of Lasix and also hold losartan in the light of acute on chronic renal failure. He continues to be on anticoagulation. 06/02 Patient is seen today in follow-up. His heart rate has been atrial fibrillation running 130s mostly this morning currently in the 110s. He is maintained on Lasix 40 mg IV every 12 hours. Lab work will be ordered. She is to have significant lower extremity edema up to the thigh and scrotum. Blood pressure 94/63, pulse ox 95% on 2 L nasal cannula. 06/03 Patient remains in Afib w RVR at 127. Yesterday, Lopressor was decreased to 50 mg bid and amiodarone 200 mg tid was added. Patient remains on IV Lasix 40 mg every 12h. blood pressure 117/71, pulse ox 96% on 2 L. Repeat blood work reve als potassium 3.4 and has been replaced, BUN 40 and creatinine 2.01. Patient states that he feels better but continues to have a lot of edema. 06/04 Telemetry is atrial fibrillation 160 120. Patient states he is not feeling much better. He continues to have lower extremity edema. He is currently on Lasix 40 mg every 12 hours and Lopressor 50 mg twice daily, amiodarone 200 mg 3 times daily. Blood pressure 116/77. Repeat blood work reveals hemoglobin of 12.5. Potassium 3.2, BUN 39 creatinine 1.83. 06/05 Patient patient remains in atrial fibrillation 120s to 130s. Kidney function is improving with BUN of 37 creatinine 1.87. He is continues to have lower extremity edema. Weight is down 3 kg. Fluid balance is -1056. Yesterday, Lasix was increased to 80 mg every 12 hours. 06/06 Patient remains in atrial fibrillation running between 100 620. Blood pressure 114/78. Yesterday, will continue Lopressor 25 mg twice daily and amiodarone at 200 mg 3 times daily. Patient is currently on IV Lasix 80 mg every 12 hours and losartan is on hold. Repeat blood work reveals potassium 3.6, BUN 35 creatinine 1.89 which is stable with minimal improvement. 06/07 BP 121/66, heart rate 90 beats a minute Creatinine 1.8, stable, BUN 35, bicarbonate 41. Kidney function has been stable on current regimen 06/08/23 Lab shows sodium 138, potassium 3.4, BUN 37, creatinine 2.39, bicarb 39 Patient received Diamox yesterday for elevated bicarb. Yesterday creatinine was 1.8 Continues to be in atrial fibrillation. Heart rate are better controlled around 100 beats a minute On exam His lower extremity swelling has much improved as compared to yesterday. He has 1+ pitting edema in bilateral extremity Abdomen is distended but soft and nontender Irregularly irregular pulse, no murmurs appreciated Mildly elevated JVD Reduced inspiratory effort, no crackles in upper lung [place]. 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 Hold PM dose. Tomorrow START BUMEX 1 MG bid Stop Diamox due to elevated creatinine Lopressor to 50 mg twice daily and continue current dose of amiodarone 200 mg 3 times daily. From tomorrow make amiodarone 200 mg twice a day for next 7 days. Thereafter reduce it to 200 mg daily Hold losartan Continue monitoring kidney function and electrolytes Continue telemetry monitoring Possible discharge tomorrow, if renal function stable. donot discharge home on diamox. Use bumex 1 mg BID for home diuretic Objective - Vital Signs Vital signs: Vital Signs Temp 97.9 F 06/07/23 20:00 Pulse 86 06/08/23 11:31 Resp 16 06/08/23 11:31 BP 121/79 06/08/23 11:31 Pulse Ox 96 06/08/23 11:31 FiO2 Intake & Output 06/07/23 06/08/23 06/08/23 18:59 06:59 18:59 Intake Total 354 1080 225 Output Total 1800 3650 600 Balance -1446 -2570 -375 Weight 82.5 kg Intake: Oral 354 1080 225 Output: Urine 1800 3650 600 Other: Voiding Method External Catheter External Catheter External Catheter - Labs CBC & Chem 7: 06/04/23 10:12 06/08/23 14:00 Labs: Abnormal Lab Results - Last 24 Hours (Table) 06/07/23 06/08/23 06/08/23 Range/Units 19:46 11:17 14:00 Potassium 3.4 L (3.5-5.1) mmol/L Chloride 93 L (98-107) mmol/L Carbon Dioxide 39 H (22-30) mmol/L BUN 37 H (9-20) mg/dL Creatinine 2.39 H (0.66-1.25) mg/dL Glucose 163 H (74-99) mg/dL POC Glucose (mg/dL) 197 H 125 H (70-110) mg/dL Calcium 8.1 L (8.4-10.2) mg/dL
[2023-06-08] MEDS: NYSTATIN 100,000 UNIT/GM POWD 15 GM TOPICAL SCH ×2 (16:11→20:34)
[2023-06-08 16:28] LABS: Glucose,Whole Blood 117 mg/dL (70-110)
[2023-06-08 19:49] LABS: Glucose,Whole Blood 194 mg/dL (70-110)
[2023-06-08] MEDS: ASCORBIC ACID 500 MG TAB PO SCH (20:33)
[2023-06-08] MEDS: INSULIN DETEMIR (LEVEMIR) 100 UNIT/ML SYR SQ SCH (20:33)
[2023-06-08] MEDS: TAMSULOSIN 0.4 MG CAP.ER.24H PO SCH (20:33)
[2023-06-08] MEDS: MULTIVITAMINS, THERA 1 EACH TAB PO SCH (20:35)
--- NOTE | 2023-06-08 22:57 | P.PN ---
Progress Note - Text Progress Note Date: 06/08/23 Chief Complaint: Short of breath Very pleasant 83-year-old patient follows with Dr. Li. Patient was seen in the ER, accompanied by his . For over 2 weeks patient is being gradually become increasingly short of breath. Increased edema in the lower extremity. No cough. No fever or chills. Decreased appetite. Tired. No change in bowel pattern. No chest pain or palpitation. Patient the ER was found to be in atrial fibrillation with uncontrolled rate. Started on IV Cardizem drip. 05/29/2023: Remains on IV Lasix. Tired. Short of breath. Patient was taken off Cardizem drip. Lopressor 25 mg twice a day. Eating about half his meals. Today his atrial fibrillation is around 100. 06/04/2023 Patient is evaluated today on the cardiac floor. He has been getting up to the bathroom. Continues on IV lasix which will be increased up to 80 mg Q12 hours. On oral amiodarone and oral metoprolol. He is anticoagulated with eliquis. Creatinine 1.83 today. 06/05/2023 Patient is evaluated today on the cardiac floor. He remains on IV lasix was increased to 80 mg every 12 hours. He continues with lower extremity edema and recommending to JASWINDER wrap legs and keep elevated while sitting. Sodium 138, potassium 3.2, BUN 37 and a creatinine 1.87 today. Heart rate is coming down. 110s today. He has been weaned to room air with adequate oxygen saturations. 06/06/2023 Patient is evaluated today sitting up in bed lower extremities are JASWINDER wrapped and continuing to have improved edema. His creatinine has continued to climb up to 1.9 today with a CO2 42. Lasix has been decreased down to 40 mg every 12 hours. Continue with strict intake and output. 06/07/2023: on IV Lasix 40 mg every 12. Metabolic alkalosis. Diamox added. Fluid restriction. Breathing better. Jaswinder wrap lower extremity. 06/08/2023: Continues to include negative fluid balance. Edema is gone down. Changed to oral Bumex tomorrow.. Looking to discharge tomorrow. Discontinue Diamox. Active Medications Acetaminophen (Acetaminophen Tab 325 Mg Tab) 650 mg PO Q6HR PRN PRN Reason: Mild Pain or Fever > 100.5 Alprazolam (Alprazolam 0.25 Mg Tab) 0.25 mg PO Q6HR PRN PRN Reason: Anxiety Amiodarone HCl (Amiodarone 200 Mg Tab) 200 mg PO BID [facility] Stop: 06/16/23 08:01 Apixaban (Apixaban 2.5 Mg Tablet) 2.5 mg PO BID [facility]; Protocol Last Admin: 06/08/23 20:33 Dose: 2.5 mg Ascorbic Acid (Ascorbic Acid 500 Mg Tab) 1,000 mg PO HS [facility] Last Admin: 06/08/23 20:33 Dose: 1,000 mg Bumetanide (Bumetanide 1 Mg Tab) 1 mg PO BID@0900,1600 [facility] Calcium Carbonate/Glycine (Calcium Carbonate 500 Mg Chewable) 1,000 mg PO Q4HR PRN PRN Reason: Dyspepsia Insulin Aspart (Insulin Aspart (Novolog) 100 Unit/Ml Vial) 0 unit SQ [facility]; Protocol Last Admin: 06/08/23 20:33 Dose: Not Given Insulin Detemir (Insulin Detemir (Levemir) 100 Unit/Ml Syr) 15 unit SQ [facility] Last Admin: 06/08/23 20:33 Dose: Not Given Lactulose (Lactulose 20 Gm/30 Ml Cup) 20 gm PO DAILY PRN PRN Reason: Constipation Last Admin: 05/30/23 08:48 Dose: 20 gm Melatonin (Melatonin 3 Mg Tablet) 3 mg PO HS PRN PRN Reason: Insomnia Metoprolol Tartrate (Metoprolol Tartrate 50 Mg Tab) 50 mg PO BID [facility] Last Admin: 06/08/23 20:33 Dose: 50 mg Miscellaneous Information (Magnesium Replacement Protocol 1 Each Misc) 1 each MISCELLANE DAILY PRN; Protocol PRN Reason: Per Protocol Miscellaneous Information (Potassium Replacement Protocol 1 Each Misc) 1 each MISCELLANE DAILY PRN; Protocol PRN Reason: Per Protocol Multivitamins (Multivitamins, Thera 1 Each Tab) 1 each PO HS [facility] Last Admin: 06/08/23 20:35 Dose: 1 each Naloxone HCl (Naloxone 0.4 Mg/Ml 1 Ml Vial) 0.2 mg IV Q2M PRN PRN Reason: Opioid Reversal Nitroglycerin (Nitroglycerin Sl Tabs 0.4 Mg Tab) 0.4 mg SUBLINGUAL Q5M PRN PRN Reason: Chest Pain Nystatin (Nystatin 100,000 Unit/Gm Powd 15 Gm) 1 applic TOPICAL BID [facility]; Protocol Last Admin: 06/08/23 20:34 Dose: 1 applic Ondansetron HCl (Ondansetron 4 Mg/2 Ml Vial) 4 mg IVP Q8HR PRN PRN Reason: Nausea And Vomiting Petrolatum (Zinc Oxide Paste (Z-Guard) 1 Applic) 1 applic TOPICAL BID [facility]; Protocol PRN Reason: Wound Healing Last Admin: 06/04/23 20:42 Dose: 1 applic Potassium Chloride (Potassium Chloride Er 20 Meq Tab.Er) 20 meq PO DAILY [facility] Last Admin: 06/08/23 07:38 Dose: 20 meq Tamsulosin HCl (Tamsulosin 0.4 Mg Cap.Er.24h) 0.4 mg PO HS [facility] Last Admin: 06/08/23 20:33 Dose: 0.4 mg Social history: . Retired. Nonsmoker. Alcohol rarely. Physical examination: VITAL SIGNS: 97.9, 86, 16, 121 with 79, 96% room air GENERAL: Laying in bed, comfortable EYES: Pupils equal. Conjunctiva normal. HEENT: External appearance of nose and ears normal, oral cavity grossly normal. NECK: Neck veins prominent; masses not palpable. HEART: Irregular heart sounds; edema much decreased LUNGS: Respiratory rate normal; decreased breath sounds. ABDOMEN: Soft, distended nontender, liver spleen not palpable, no masses palpable. PSYCH: Able to answer simple questions. A bit forgetfull. MUSCULOSKELETAL:No Clubbing/cyanosis;muscles-grossly intact. OA INVESTIGATIONS, reviewed in the clinical context: 06/08/2023: Potassium 3.4 BUN 37 creatinine 2.39 06/07/2023: Potassium 3.3 bicarb 41 BUN 35 creatinine 1.8 to 05/29/2023: Potassium 4.4 BUN 40 creatinine 1.98 05/28/2023: White count 6.6 hemoglobin 12.8 platelets 150 potassium 4.3 BUN 36 creatinine 1.85 Troponin I less than 0.012 ProBNP 4000 EKG tracing personally reviewed by me: Atrial fibrillation rate 124 Chest x-ray film personally reviewed by me-some cephalization of vessels. Left pleural effusion Assessment plan: -Acute congestive heart failure exacerbation due to dysfunction EF 45-50%. Also precipitated by uncontrolled atrial fibrillation.: Euvolemic Continue IV Lasix 40 mg every 12. Changed to oral Bumex. Stop Diamox -Persistent atrial fibrillation with a rapid ventricular rate: Rate controlled IV Cardizem drip-discontinued. Eliquis. Lopressor 25 mg twice a day Telemetry. Follow with cardiology -Metabolic alkalosis from diuresis Received Diamox -Chronic kidney disease stage III likely nephrosclerosis Follow renal function -Acute kidney injury, hepatorenal/ATN from diuresis -Moderate cognitive impairment possibly from late onset Alzheimer with dementia -Essential hypertension Lopressor. -BPH alfuZosin -DO NOT RESUSCITATE DC IV Lasix. DC Diamox. DC Cozaar. Past Medical History Past Medical History: CVA/TIA, Diabetes Mellitus Additional Past Medical History / Comment(s): Type 2 diabetic History of Any Multi-Drug Resistant Organisms: None Reported Past Surgical History: Appendectomy, Prostate Surgery Additional Past Surgical History / Comment(s): prostate Past Anesthesia/Blood Transfusion Reactions: No Reported Reaction Past Psychological History: No Psychological Hx Reported Smoking Status: Never smoker Past Alcohol Use History: Rare Past Drug Use History: None Reported
[2023-06-09] MEDS: INSULIN ASPART (NovoLOG) 100 UNIT/ML VIAL SQ SCH ×4 (05:44→19:54)
[2023-06-09 05:49] LABS: Glucose,Whole Blood 100 mg/dL (70-110)
[2023-06-09] MEDS: AMIODARONE 200 MG TAB PO SCH ×2 (08:23→20:30)
[2023-06-09] MEDS: APIXABAN 2.5 MG TABLET PO SCH ×2 (08:23→20:30)
[2023-06-09] MEDS: METOPROLOL TARTRATE 50 MG TAB PO SCH ×2 (08:23→20:30)
[2023-06-09] MEDS: BUMETANIDE 1 MG TAB PO SCH ×2 (08:24→16:53)
[2023-06-09] MEDS: POTASSIUM CHLORIDE ER 20 MEQ TAB.ER PO SCH (08:24)
[2023-06-09] MEDS: NYSTATIN 100,000 UNIT/GM POWD 15 GM TOPICAL SCH ×2 (08:24→20:30)
[2023-06-09 09:02] LABS: African American GFR (CKD) 28 (>60 ml/min/1.73 sqM); Anion Gap 5 mmol/L; Blood Urea Nitrogen 38 mg/dL (9-20); Calcium 8.2 mg/dL (8.4-10.2); Carbon Dioxide 36 mmol/L (22-30); Chloride 96 mmol/L (98-107); Glucose 90 mg/dL (74-99); Non-African American GFR(CKD) 25 (>60 ml/min/1.73 sqM); Potassium 3.3 mmol/L (3.5-5.1); Sodium 137 mmol/L (137-145)
[2023-06-09] MEDS: DAPAGLIFLOZIN PROPANEDIOL 10 MG TABLET PO SCH (11:16)
[2023-06-09 11:39] LABS: Glucose,Whole Blood 173 mg/dL (70-110)
--- NOTE | 2023-06-09 12:43 | P.PN ---
Subjective HISTORY OF PRESENT ILLNESS: This is a 83-year-old male with a past medical history significant for congestive heart failure, atrial fibrillation, hypertension, hyperlipidemia, nonischemic cardiac myopathy, COPD, and former nicotine dependence. Patient follows in the office with Dr. Castillo. We have been asked to see the patient in consultation for congestive heart failure and atrial fibrillation. Patient examined at the bedside in the emergency room. Patient presented to the cardiology office yesterday for a routine visit. The patient was very short of breath and tachypneic and he was brought to the hospital for further evaluation. The patient was found to be in acute congestive heart failure. He was given a one-time dose of IV Lasix per the ER physician. He was also found to be in A. fib with RVR. He was started on IV Cardizem. This morning he continues to report shortness of breath. He denies any chest pain or pressure. Telemetry reveals atrial fibrillation with a heart rate around 110. * EKG reveals atrial fibrillation with RVR * Chest xray cardiomegaly, pulmonary vascular congestion, and bilateral pleural effusions. * Laboratory data: Troponin negative 3. ProBNP 4000. * Most recent echocardiogram obtained in July 2022 revealed ejection fraction 40%, overall global decrease in contractility noted. [place] is hypokinetic. Diastolic dysfunction. Mild biatrial dilatation. No significant pulmonary hypertension * Cardiac catheterization history: Unknown 05/30/2023 Patient examined this morning at the bedside. Patient denies chest pain or pressure. He reports mild shortness of breath. He remains on IV Lasix. Creatinine today 2.11. Telemetry reveals atrial fibrillation with a heart rate in the 140s. Echocardiogram completed revealing ejection fraction 45-50%, mild MR, moderate TR. 05/31/2023 Patient examined this morning at the bedside. Patient denies chest pain or pressure. He reports mild shortness of breath. He remains on IV Lasix 60 mg every 12 hours. Kidney function from this morning is currently pending. Telemetry revealed atrial fibrillation with heart rate between [id number] occasionally spiking up and to the 130s 140s but not sustaining. Blood pressure 96/57. 06/09/2023 Patient examined this morning at the bedside. Patient currently denies chest pain or pressure. He denies shortness of breath. Telemetry reveals atrial fibrillation with controlled ventricular rate. Vital signs are stable. Blood pressure 129/76. PHYSICAL EXAM: VITAL SIGNS: Reviewed. GENERAL: Well-developed in no acute distress. HEENT: Head is normocephalic. Pupils are equal, round. Sclerae anicteric. Mucous membranes of the mouth are moist. Neck supple. No JVD or thyromegaly LUNGS: Respirations even and unlabored. Lungs clear to auscultation. HEART: Irregular rate and rhythm. S1 and S2 heard. ABDOMEN: Soft. Nondistended. Nontender. EXTREMITIES: Normal range of motion. No clubbing or cyanosis. Peripheral pulses intact. No lower extremity edema NEUROLOGIC: Awake and alert. Oriented x 3. ASSESSMENT: Shortness of breath Acute on chronic heart failure with reduced ejection fraction, 40% Persistent atrial fibrillation with RVR, currently rate controlled Acute on chronic kidney disease Hypokalemia Nonischemic cardiomyopathy Hypertension Hyperlipidemia COPD Former nicotine dependence PLAN: Continue current cardiac medications Add Farxiga 10 mg daily Patient has been switched to oral Bumex 1 mg twice a day starting this morning Cozaar remains on hold secondary to kidney function Further recommendations pending patient's course Nurse practitioner note has been reviewed by physician. Signing provider agrees with the documented findings, assessment, and plan of care. Objective - Vital Signs Vital signs: Vital Signs Temp 97.9 F 06/09/23 08:00 Pulse 96 06/09/23 08:00 Resp 18 06/09/23 08:00 BP 129/76 06/09/23 08:00 Pulse Ox 99 06/09/23 08:00 FiO2 Intake & Output 06/08/23 06/09/23 06/09/23 18:59 06:59 18:59 Intake Total 335 120 Output Total 1100 1450 900 Balance -765 -1450 -780 Weight 103.8 kg Intake: Oral 335 120 Output: Urine 1100 1450 900 Other: Voiding Method External Catheter External Catheter External Catheter - Labs CBC & Chem 7: 06/04/23 10:12 06/09/23 07:03 Labs: Abnormal Lab Results - Last 24 Hours (Table) 06/08/23 06/08/23 06/08/23 Range/Units 14:00 16:27 19:48 Potassium 3.4 L (3.5-5.1) mmol/L Chloride 93 L (98-107) mmol/L Carbon Dioxide 39 H (22-30) mmol/L BUN 37 H (9-20) mg/dL Creatinine 2.39 H (0.66-1.25) mg/dL Glucose 163 H (74-99) mg/dL POC Glucose (mg/dL) 117 H 194 H (70-110) mg/dL Calcium 8.1 L (8.4-10.2) mg/dL 06/09/23 06/09/23 Range/Units 07:03 11:37 Potassium 3.3 L (3.5-5.1) mmol/L Chloride 96 L (98-107) mmol/L Carbon Dioxide 36 H (22-30) mmol/L BUN 38 H (9-20) mg/dL Creatinine 2.34 H (0.66-1.25) mg/dL Glucose (74-99) mg/dL POC Glucose (mg/dL) 173 H (70-110) mg/dL Calcium 8.2 L (8.4-10.2) mg/dL
--- NOTE | 2023-06-09 15:42 | P.PN ---
Progress Note - Text Progress Note Date: 06/09/23 Chief Complaint: Short of breath Very pleasant 83-year-old patient follows with Dr. Li. Patient was seen in the ER, accompanied by his . For over 2 weeks patient is being gradually become increasingly short of breath. Increased edema in the lower extremity. No cough. No fever or chills. Decreased appetite. Tired. No change in bowel pattern. No chest pain or palpitation. Patient the ER was found to be in atrial fibrillation with uncontrolled rate. Started on IV Cardizem drip. 05/29/2023: Remains on IV Lasix. Tired. Short of breath. Patient was taken off Cardizem drip. Lopressor 25 mg twice a day. Eating about half his meals. Today his atrial fibrillation is around 100. 06/04/2023 Patient is evaluated today on the cardiac floor. He has been getting up to the bathroom. Continues on IV lasix which will be increased up to 80 mg Q12 hours. On oral amiodarone and oral metoprolol. He is anticoagulated with eliquis. Creatinine 1.83 today. 06/05/2023 Patient is evaluated today on the cardiac floor. He remains on IV lasix was increased to 80 mg every 12 hours. He continues with lower extremity edema and recommending to JASWINDER wrap legs and keep elevated while sitting. Sodium 138, potassium 3.2, BUN 37 and a creatinine 1.87 today. Heart rate is coming down. 110s today. He has been weaned to room air with adequate oxygen saturations. 06/06/2023 Patient is evaluated today sitting up in bed lower extremities are JASWINDER wrapped and continuing to have improved edema. His creatinine has continued to climb up to 1.9 today with a CO2 42. Lasix has been decreased down to 40 mg every 12 hours. Continue with strict intake and output. 06/07/2023: on IV Lasix 40 mg every 12. Metabolic alkalosis. Diamox added. Fluid restriction. Breathing better. Jaswinder wrap lower extremity. 06/08/2023: Continues to include negative fluid balance. Edema is gone down. Changed to oral Bumex tomorrow.. Looking to discharge tomorrow. Discontinue Diamox. June 09, 2023: Feeling better. Farxiga was added by cardiology today. Oral Bumex started today. Breathing stable. Active Medications Acetaminophen (Acetaminophen Tab 325 Mg Tab) 650 mg PO Q6HR PRN PRN Reason: Mild Pain or Fever > 100.5 Alprazolam (Alprazolam 0.25 Mg Tab) 0.25 mg PO Q6HR PRN PRN Reason: Anxiety Amiodarone HCl (Amiodarone 200 Mg Tab) 200 mg PO BID COUNTS INCLUDE 234 BEDS AT THE [facility] Stop: 06/16/23 08:01 Last Admin: 06/09/23 08:23 Dose: 200 mg Apixaban (Apixaban 2.5 Mg Tablet) 2.5 mg PO BID COUNTS INCLUDE 234 BEDS AT THE [facility]; Protocol Last Admin: 06/09/23 08:23 Dose: 2.5 mg Ascorbic Acid (Ascorbic Acid 500 Mg Tab) 1,000 mg PO HS COUNTS INCLUDE 234 BEDS AT THE [facility] Last Admin: 06/08/23 20:33 Dose: 1,000 mg Bumetanide (Bumetanide 1 Mg Tab) 1 mg PO BID@0900,1600 COUNTS INCLUDE 234 BEDS AT THE [facility] Last Admin: 06/09/23 08:24 Dose: 1 mg Calcium Carbonate/Glycine (Calcium Carbonate 500 Mg Chewable) 1,000 mg PO Q4HR PRN PRN Reason: Dyspepsia Dapagliflozin (Dapagliflozin Propanediol 10 Mg Tablet) 10 mg PO DAILY COUNTS INCLUDE 234 BEDS AT THE [facility] Last Admin: 06/09/23 11:16 Dose: 10 mg Insulin Aspart (Insulin Aspart (Novolog) 100 Unit/Ml Vial) 0 unit SQ [facility]; Protocol Last Admin: 06/09/23 13:29 Dose: Not Given Insulin Detemir (Insulin Detemir (Levemir) 100 Unit/Ml Syr) 15 unit SQ [facility] Last Admin: 06/08/23 20:33 Dose: Not Given Lactulose (Lactulose 20 Gm/30 Ml Cup) 20 gm PO DAILY PRN PRN Reason: Constipation Last Admin: 05/30/23 08:48 Dose: 20 gm Melatonin (Melatonin 3 Mg Tablet) 3 mg PO HS PRN PRN Reason: Insomnia Metoprolol Tartrate (Metoprolol Tartrate 50 Mg Tab) 50 mg PO BID COUNTS INCLUDE 234 BEDS AT THE [facility] Last Admin: 06/09/23 08:23 Dose: 50 mg Miscellaneous Information (Magnesium Replacement Protocol 1 Each Misc) 1 each MISCELLANE DAILY PRN; Protocol PRN Reason: Per Protocol Miscellaneous Information (Potassium Replacement Protocol 1 Each Misc) 1 each MISCELLANE DAILY PRN; Protocol PRN Reason: Per Protocol Multivitamins (Multivitamins, Thera 1 Each Tab) 1 each PO HS COUNTS INCLUDE 234 BEDS AT THE [facility] Last Admin: 06/08/23 20:35 Dose: 1 each Naloxone HCl (Naloxone 0.4 Mg/Ml 1 Ml Vial) 0.2 mg IV Q2M PRN PRN Reason: Opioid Reversal Nitroglycerin (Nitroglycerin Sl Tabs 0.4 Mg Tab) 0.4 mg SUBLINGUAL Q5M PRN PRN Reason: Chest Pain Nystatin (Nystatin 100,000 Unit/Gm Powd 15 Gm) 1 applic TOPICAL BID COUNTS INCLUDE 234 BEDS AT THE [facility]; Protocol Last Admin: 06/09/23 08:24 Dose: 1 applic Ondansetron HCl (Ondansetron 4 Mg/2 Ml Vial) 4 mg IVP Q8HR PRN PRN Reason: Nausea And Vomiting Petrolatum (Zinc Oxide Paste (Z-Guard) 1 Applic) 1 applic TOPICAL BID PRN; Protocol PRN Reason: Wound Healing Last Admin: 06/04/23 20:42 Dose: 1 applic Potassium Chloride (Potassium Chloride Er 20 Meq Tab.Er) 20 meq PO DAILY COUNTS INCLUDE 234 BEDS AT THE [facility] Last Admin: 06/09/23 08:24 Dose: 20 meq Tamsulosin HCl (Tamsulosin 0.4 Mg Cap.Er.24h) 0.4 mg PO [facility] Last Admin: 06/08/23 20:33 Dose: 0.4 mg Social history: . Retired. Nonsmoker. Alcohol rarely. Physical examination: VITAL SIGNS: 97.9, 96, 18, 129 x 76, 99% room air GENERAL: Comfortable EYES: Pupils equal. Conjunctiva normal. HEENT: External appearance of nose and ears normal, oral cavity grossly normal. NECK: Neck veins prominent; masses not palpable. HEART: Irregular heart sounds; edema much decreased LUNGS: Respiratory rate normal; decreased breath sounds. ABDOMEN: Soft, distended nontender, liver spleen not palpable, no masses pa lpable. PSYCH: Able to answer simple questions. A bit forgetfull. MUSCULOSKELETAL:No Clubbing/cyanosis;muscles-grossly intact. OA INVESTIGATIONS, reviewed in the clinical context: June 09, 2023: Potassium 3.3 BUN 38 creatinine 2.34 06/08/2023: Potassium 3.4 BUN 37 creatinine 2.39 06/07/2023: Potassium 3.3 bicarb 41 BUN 35 creatinine 1.8 to 05/29/2023: Potassium 4.4 BUN 40 creatinine 1.98 05/28/2023: White count 6.6 hemoglobin 12.8 platelets 150 potassium 4.3 BUN 36 creatinine 1.85 Troponin I less than 0.012 ProBNP 4000 EKG tracing personally reviewed by me: Atrial fibrillation rate 124 Chest x-ray film personally reviewed by me-some cephalization of vessels. Left pleural effusion Assessment plan: -Acute congestive heart failure exacerbation due to dysfunction EF 45-50%. Also precipitated by uncontrolled atrial fibrillation.: Euvolemic Received IV Lasix. Started on oral Bumex milligram twice daily today. Farxiga started today Stop Diamox -Persistent atrial fibrillation with a rapid ventricular rate: Rate controlled IV Cardizem drip-discontinued. Eliquis. Lopressor 25 mg twice a day Telemetry. Follow with cardiology -Metabolic alkalosis from diuresis Received Diamox -Chronic kidney disease stage III likely nephrosclerosis Follow renal function -Acute kidney injury, hepatorenal/ATN from diuresis -Moderate cognitive impairment possibly from late onset Alzheimer with dementia -Essential hypertension Lopressor. -BPH alfuZosin -DO NOT RESUSCITATE Started on Bumex today. Cozaar has been held because of renal function. Farxiga added by cardiology. Hopefully discharge in next 24 hours. Past Medical History Past Medical History: CVA/TIA, Diabetes Mellitus Additional Past Medical History / Comment(s): Type 2 diabetic History of Any Multi-Drug Resistant Organisms: None Reported Past Surgical History: Appendectomy, Prostate Surgery Additional Past Surgical History / Comment(s): prostate Past Anesthesia/Blood Transfusion Reactions: No Reported Reaction Past Psychological History: No Psychological Hx Reported Smoking Status: Never smoker Past Alcohol Use History: Rare Past Drug Use History: None Reported
[2023-06-09 16:32] LABS: Glucose,Whole Blood 95 mg/dL (70-110)
[2023-06-09 17:08] VITALS: RESP 16
[2023-06-09 19:48] LABS: Glucose,Whole Blood 196 mg/dL (70-110)
[2023-06-09] MEDS: INSULIN DETEMIR (LEVEMIR) 100 UNIT/ML SYR SQ SCH (19:55)
[2023-06-09] MEDS: ASCORBIC ACID 500 MG TAB PO SCH (20:30)
[2023-06-09] MEDS: TAMSULOSIN 0.4 MG CAP.ER.24H PO SCH (20:30)
[2023-06-09] MEDS: MULTIVITAMINS, THERA 1 EACH TAB PO SCH (20:30)
[2023-06-10 05:51] LABS: Glucose,Whole Blood 99 mg/dL (70-110)
[2023-06-10] MEDS: INSULIN ASPART (NovoLOG) 100 UNIT/ML VIAL SQ SCH ×2 (05:59→10:50)
[2023-06-10 08:59] LABS: African American GFR (CKD) 28 (>60 ml/min/1.73 sqM); Anion Gap 4 mmol/L; Blood Urea Nitrogen 36 mg/dL (9-20); Calcium 8.4 mg/dL (8.4-10.2); Carbon Dioxide 35 mmol/L (22-30); Chloride 99 mmol/L (98-107); Glucose 117 mg/dL (74-99); Non-African American GFR(CKD) 25 (>60 ml/min/1.73 sqM); Potassium 3.5 mmol/L (3.5-5.1); Sodium 138 mmol/L (137-145)
[2023-06-10] MEDS: APIXABAN 2.5 MG TABLET PO SCH (09:25)
[2023-06-10] MEDS: POTASSIUM CHLORIDE ER 20 MEQ TAB.ER PO SCH (09:25)
[2023-06-10] MEDS: AMIODARONE 200 MG TAB PO SCH (09:25)
[2023-06-10] MEDS: METOPROLOL TARTRATE 50 MG TAB PO SCH (09:25)
[2023-06-10] MEDS: DAPAGLIFLOZIN PROPANEDIOL 10 MG TABLET PO SCH (09:25)
[2023-06-10] MEDS: BUMETANIDE 1 MG TAB PO SCH (09:25)
[2023-06-10] MEDS: NYSTATIN 100,000 UNIT/GM POWD 15 GM TOPICAL SCH (09:26)
--- NOTE | 2023-06-10 10:04 | P.PN ---
Subjective HISTORY OF PRESENT ILLNESS: This is a 83-year-old male with a past medical history significant for congestive heart failure, atrial fibrillation, hypertension, hyperlipidemia, nonischemic cardiac myopathy, COPD, and former nicotine dependence. Patient follows in the office with Dr. Castillo. We have been asked to see the patient in consultation for congestive heart failure and atrial fibrillation. Patient examined at the bedside in the emergency room. Patient presented to the cardiology office yesterday for a routine visit. The patient was very short of breath and tachypneic and he was brought to the hospital for further evaluation. The patient was found to be in acute congestive heart failure. He was given a one-time dose of IV Lasix per the ER physician. He was also found to be in A. fib with RVR. He was started on IV Cardizem. This morning he continues to report shortness of breath. He denies any chest pain or pressure. Telemetry reveals atrial fibrillation with a heart rate around 110. * EKG reveals atrial fibrillation with RVR * Chest xray cardiomegaly, pulmonary vascular congestion, and bilateral pleural effusions. * Laboratory data: Troponin negative 3. ProBNP 4000. * Most recent echocardiogram obtained in July 2022 revealed ejection fraction 40%, overall global decrease in contractility noted. [place] is hypokinetic. Diastolic dysfunction. Mild biatrial dilatation. No significant pulmonary hypertension * Cardiac catheterization history: Unknown 05/30/2023 Patient examined this morning at the bedside. Patient denies chest pain or pressure. He reports mild shortness of breath. He remains on IV Lasix. Creatinine today 2.11. Telemetry reveals atrial fibrillation with a heart rate in the 140s. Echocardiogram completed revealing ejection fraction 45-50%, mild MR, moderate TR. 05/31/2023 Patient examined this morning at the bedside. Patient denies chest pain or pressure. He reports mild shortness of breath. He remains on IV Lasix 60 mg every 12 hours. Kidney function from this morning is currently pending. Telemetry revealed atrial fibrillation with heart rate between [id number] occasionally spiking up and to the 130s 140s but not sustaining. Blood pressure 96/57. 06/09/2023 Patient examined this morning at the bedside. Patient currently denies chest pain or pressure. He denies shortness of breath. Telemetry reveals atrial fibrillation with controlled ventricular rate. Vital signs are stable. Blood pressure 129/76. June 10, 2023 Patient examined this morning at the bedside. Patient currently denies chest pain or pressure. He states his breathing feels about the same in comparison to yesterday. Telemetry reveals atrial fibrillation with a heart rate between [id number]. He denies any dizziness or lightheadedness. Denies palpitations. PHYSICAL EXAM: VITAL SIGNS: Reviewed. GENERAL: Well-developed in no acute distress. HEENT: Head is normocephalic. Pupils are equal, round. Sclerae anicteric. Mucous membranes of the mouth are moist. Neck supple. No JVD or thyromegaly LUNGS: Respirations even and unlabored. Lungs clear to auscultation. HEART: Irregular rate and rhythm. S1 and S2 heard. ABDOMEN: Soft. Nondistended. Nontender. EXTREMITIES: Normal range of motion. No clubbing or cyanosis. Peripheral pulses intact. 2+ lower extremity edema NEUROLOGIC: Awake and alert. Oriented x 3. ASSESSMENT: Shortness of breath Acute on chronic heart failure with reduced ejection fraction, 40% Persistent atrial fibrillation with RVR, currently rate controlled Acute on chronic kidney disease Hypokalemia Nonischemic cardiomyopathy Hypertension Hyperlipidemia COPD Former nicotine dependence PLAN: Continue current cardiac medications Patient remains on oral diuretics Continue telemetry monitoring Cozaar remains on hold secondary to kidney function Further recommendations pending patient's course Nurse practitioner note has been reviewed by physician. Signing provider agrees with the documented findings, assessment, and plan of care. Objective - Vital Signs Vital signs: Vital Signs Temp 97.6 F 06/10/23 08:12 Pulse 94 06/10/23 08:12 Resp 16 06/10/23 08:16 BP 120/85 06/10/23 08:12 Pulse Ox 92 L 06/10/23 08:12 FiO2 Intake & Output 06/09/23 06/10/23 06/10/23 18:59 06:59 18:59 Intake Total 360 Output Total 1999 1040 Balance -1640 -1040 Weight 102.1 kg Intake: Oral 360 Output: Urine 1999 1040 Other: Voiding Method External Catheter External Catheter External Catheter - Labs CBC & Chem 7: 06/04/23 10:12 06/10/23 08:01 Labs: Abnormal Lab Results - Last 24 Hours (Table) 06/09/23 06/09/23 06/10/23 Range/Units 11:37 19:47 08:01 Carbon Dioxide 35 H (22-30) mmol/L BUN 36 H (9-20) mg/dL Creatinine 2.35 H (0.66-1.25) mg/dL Glucose 117 H (74-99) mg/dL POC Glucose (mg/dL) 173 H 196 H (70-110) mg/dL
[2023-06-10 11:34] LABS: Glucose,Whole Blood 107 mg/dL (70-110)
[2023-06-10 11:40] VITALS: BP 103/75; PULSE 93; TEMP 97.8
--- NOTE | 2023-06-10 19:39 | P.DS ---
Providers Date of admission: 05/28/23 16:59 Expected date of discharge: 06/10/23 Attending physician: Ricardo Shea Consults: 05/28/23 16:32 Consult Physician Urgent Consulting Provider: Zaid Barreto Consult Reason/Comments: afib/CHF Do you want consulting provider notified?: Yes Primary care physician: [facility] Course: Chief Complaint: Short of breath Very pleasant 83-year-old patient follows with Dr. Li. Patient was seen in the ER, accompanied by his . For over 2 weeks patient is being gradually become increasingly short of breath. Increased edema in the lower extremity. No cough. No fever or chills. Decreased appetite. Tired. No change in bowel pattern. No chest pain or palpitation. Patient the ER was found to be in atrial fibrillation with uncontrolled rate. Started on IV Cardizem drip. 05/29/2023: Remains on IV Lasix. Tired. Short of breath. Patient was taken off Cardizem drip. Lopressor 25 mg twice a day. Eating about half his meals. Today his atrial fibrillation is around 100. 06/04/2023 Patient is evaluated today on the cardiac floor. He has been getting up to the bathroom. Continues on IV lasix which will be increased up to 80 mg Q12 hours. On oral amiodarone and oral metoprolol. He is anticoagulated with eliquis. Creatinine 1.83 today. 06/05/2023 Patient is evaluated today on the cardiac floor. He remains on IV lasix was increased to 80 mg every 12 hours. He continues with lower extremity edema and recommending to JASWINDER wrap legs and keep elevated while sitting. Sodium 138, potas sium 3.2, BUN 37 and a creatinine 1.87 today. Heart rate is coming down. 110s today. He has been weaned to room air with adequate oxygen saturations. 06/06/2023 Patient is evaluated today sitting up in bed lower extremities are JASWINDER wrapped and continuing to have improved edema. His creatinine has continued to climb up to 1.9 today with a CO2 42. Lasix has been decreased down to 40 mg every 12 hours. Continue with strict intake and output. 06/07/2023: on IV Lasix 40 mg every 12. Metabolic alkalosis. Diamox added. Fluid restriction. Breathing better. Jaswinder wrap lower extremity. 06/08/2023: Continues to include negative fluid balance. Edema is gone down. Changed to oral Bumex tomorrow.. Looking to discharge tomorrow. Discontinue Diamox. June 09, 2023: Feeling better. Farxiga was added by cardiology today. Oral Bumex started today. Breathing stable. June 10, 2023: Stable. No new issues. Medications reviewed. Patient to follow-up with cardiology and nephrology outpatient. Fluid restriction. Labs in 4-5 days. Discussion and discharge planning more than 35 minutes Social history: . Retired. Nonsmoker. Alcohol rarely. Physical examination: VITAL SIGNS: 97.8, 93, 16, 103/35, 94% room air GENERAL: Up in a chair, comfortable EYES: Pupils equal. Conjunctiva normal. HEENT: External appearance of nose and ears normal, oral cavity grossly normal. NECK: Neck veins prominent; masses not palpable. HEART: Irregular heart sounds; edema much decreased LUNGS: Respiratory rate normal; decreased breath sounds. ABDOMEN: Soft, distended nontender, liver spleen not palpable, no masses palpable. PSYCH: Able to answer simple questions. A bit forgetfull. MUSCULOSKELETAL:No Clubbing/cyanosis;muscles-grossly intact. OA INVESTIGATIONS, reviewed in the clinical context: June 10, 2023: Potassium 3.5 creatinine 2.35 05/28/2023: White count 6.6 hemoglobin 12.8 platelets 150 potassium 4.3 BUN 36 creatinine 1.85 Troponin I less than 0.012 ProBNP 4000 EKG tracing personally reviewed by me: Atrial fibrillation rate 124 Chest x-ray film personally reviewed by me-some cephalization of vessels. Left pleural effusion Assessment plan: -Acute congestive heart failure exacerbation due to dysfunction EF 45-50%. Also precipitated by uncontrolled atrial fibrillation.: Euvolemic Received IV Lasix. Bumex 1 mg twice daily. Farxiga added Stop Diamox -Persistent atrial fibrillation with a rapid ventricular rate: Rate controlled IV Cardizem drip-discontinued. Eliquis. Lopressor 50 mg twice a day Telemetry. Follow with cardiology -Metabolic alkalosis from diuresis Received Diamox -Chronic kidney disease stage III likely nephrosclerosis Follow renal function. Follow-up with nephrology outpatient -Acute kidney injury, hepatorenal/ATN from diuresis -Moderate cognitive impairment possibly from late onset Alzheimer with dementia -Essential hypertension Lopressor. -BPH alfuZosin -DO NOT RESUSCITATE Disposition: Home Labs: BMP 5 days Past Medical History Past Medical History: CVA/TIA, Diabetes Mellitus Additional Past Medical History / Comment(s): Type 2 diabetic History of Any Multi-Drug Resistant Organisms: None Reported Past Surgical History: Appendectomy, Prostate Surgery Additional Past Surgical History / Comment(s): prostate Past Anesthesia/Blood Transfusion Reactions: No Reported Reaction Past Psychological History: No Psychological Hx Reported Smoking Status: Never smoker Past Alcohol Use History: Rare Past Drug Use History: None Reported Plan - Discharge Summary Discharge Rx Participant: Yes New Discharge Prescriptions: New Amiodarone [Cordarone] 200 mg PO DAILY #30 tab Apixaban [Eliquis] 2.5 mg PO BID #60 tab Dapagliflozin Propanediol [Farxiga] 10 mg PO DAILY #30 tab Nystatin 100,000 Unit/gm Powd [Mycostatin Powder] 1 applic TOPICAL BID #1 each Bumetanide [BUMEX] 1 mg PO BID@0900,1600 #60 tab Potassium Chloride ER [K-Dur 20] 20 meq PO DAILY #30 tab Continue Ascorbic Acid [Vitamin C] 1,000 mg PO HS Mv-Mn/Om3/Dha/Epa/Fish/Lut/Hortencia [Ocuvite Adult 50 Plus Softgel] 1 cap PO HS Calcium Carb/Mag Ox/Zinc Sulf [Cca-Urg-Ofyv 334-134-5 mg Tab] 1 tab PO HS Cholecalciferol [Vitamin D3 (25 Mcg = 1000 Iu)] 25 mcg PO HS Alfuzosin HCl [Alfuzosin HCl ER] 10 mg PO HS Multivit-Minerals/Folic Acid [Centrum Adult 50 Plus Gummy] 80 mcg PO HS Changed Metoprolol Tartrate [Lopressor] 50 mg PO BID #60 tab Discontinued Losartan Potassium [Cozaar] 50 mg PO DAILY Apixaban [Eliquis] 5 mg PO DAILY Discharge Medication List Alfuzosin HCl [Alfuzosin HCl ER] 10 mg PO HS 08/08/22 [History] Ascorbic Acid [Vitamin C] 1,000 mg PO HS 08/08/22 [History] Calcium Carb/Mag Ox/Zinc Sulf [Jbo-Vla-Uzyk 334-134-5 mg Tab] 1 tab PO HS 08/08/22 [History] Cholecalciferol [Vitamin D3 (25 Mcg = 1000 Iu)] 25 mcg PO HS 08/08/22 [History] Mv-Mn/Om3/Dha/Epa/Fish/Lut/Hortencia [Ocuvite Adult 50 Plus Softgel] 1 cap PO HS 08/08/22 [History] Multivit-Minerals/Folic Acid [Centrum Adult 50 Plus Gummy] 80 mcg PO HS 05/28/23 [History] Amiodarone [Cordarone] 200 mg PO DAILY #30 tab 06/10/23 [Rx] Apixaban [Eliquis] 2.5 mg PO BID #60 tab 06/10/23 [Rx] Bumetanide [BUMEX] 1 mg PO BID@0900,1600 #60 tab 06/10/23 [Rx] Dapagliflozin Propanediol [Farxiga] 10 mg PO DAILY #30 tab 06/10/23 [Rx] Metoprolol Tartrate [Lopressor] 50 mg PO BID #60 tab 06/10/23 [Rx] Nystatin 100,000 Unit/gm Powd [Mycostatin Powder] 1 applic TOPICAL BID #1 each 06/10/23 [Rx] Potassium Chloride ER [K-Dur 20] 20 meq PO DAILY #30 tab 06/10/23 [Rx] Follow up Appointment(s)/Referral(s): Crystal Matos MD [STAFF PHYSICIAN] - 06/23/23 1:00 pm Mirta Castillo MD [STAFF PHYSICIAN] - 06/17/23 10:30 am Sheldon Li DO [Primary Care Provider] - 1-2 days (Office will call with appointment date and time) [facility] Visiting Nurse, [NON-STAFF] - Patient Instructions/Handouts: Heart Failure (DC), Edema (ED) Activity/Diet/Wound Care/Special Instructions: fluid restrict 2000 cc/day Discharge Disposition: HOME SELF-CARE
== END 2023-06-10 14:19 | disposition home health service (06) | DRG 291 ==
LOC: EC 14:49 → 3SCARD 16:59
PROVIDERS: ADMIT Hospitalist; ATTEND Hospitalist
DX: I13.0 Hypertensive heart and chronic kidney disease with heart failure and stage 1 through stage 4 chronic kidney disease, or unspecified chronic kidney disease (principal); I50.23 Acute on chronic systolic (congestive) heart failure; N17.9 Acute kidney failure, unspecified; E87.3 Alkalosis; F02.818 Dementia in other diseases classified elsewhere, unspecified severity, with other behavioral disturbance; F02.84 Dementia in other diseases classified elsewhere, unspecified severity, with anxiety; I48.19 Other persistent atrial fibrillation; G30.1 Alzheimer's disease with late onset; I42.8 Other cardiomyopathies; E11.22 Type 2 diabetes mellitus with diabetic chronic kidney disease; E11.65 Type 2 diabetes mellitus with hyperglycemia; N18.30 Chronic kidney disease, stage 3 unspecified; J44.9 Chronic obstructive pulmonary disease, unspecified; Z66 Do not resuscitate; E78.5 Hyperlipidemia, unspecified; E87.6 Hypokalemia; N40.0 Benign prostatic hyperplasia without lower urinary tract symptoms; G47.00 Insomnia, unspecified; K59.00 Constipation, unspecified; N50.89 Other specified disorders of the male genital organs; Z79.01 Long term (current) use of anticoagulants; Z79.899 Other long term (current) drug therapy; Z88.8 Allergy status to other drugs, medicaments and biological substances
CPT/HCPCS: 36415; 71046; 80048; 80053; 83735; 83880; 84484; 85025; 85610; 85730; 93005; 93306; 94760; 96361; 96374; 96376; 99291

== ENCOUNTER → 2023-07-30 | Outpatient (CLI) | payer MEDICARE ==
[2023-07-30 11:16] LABS: Creatinine,Urine Random 109.1 mg/dL; Protein/Creatinine Ratio,Urine 0.147
[2023-07-30 16:59] LABS: HCT 39.9 % (39.6-50.0); MCH 31.8 pg (27.0-32.0); MCHC 32.6 g/dL (32.0-37.0); MCV 97.6 FL (80.0-97.0); Mean Platelet Volume 10.2 FL (9.5-12.2); NRBC Per 100 WBC 0 X 10*3/uL (0.00-0.01); Platelet Count 176 X 10*3/uL (140-440); RBC 4.09 X 10*6/uL (4.40-5.60); RDW 15.4 % (11.5-14.5); WBC 4.63 X 10*3/uL (4.50-10.00)
[2023-07-30 17:07] LABS: Appearance,Urine Clear (Clear); Bilirubin,Urine Negative (Negative); Blood,Urine Negative (Negative); Color,Urine Yellow (Yellow); Ketones,Urine Negative (Negative); Nitrite,Urine Negative (Negative); Specific Gravity,Urine 1.022 (1.001-1.030); Urobilinogen,Urine 0.2 E.U./DL
[2023-07-30 17:12] LABS: ALT 15 U/L (10-49); AST 17 U/L (14-35); Albumin 3.6 g/dL (3.8-4.9); Albumin/Globulin Ratio 1.33 Ratio (1.60-3.17); Alkaline Phosphatase 72 U/L (41-126); BUN/Creat Ratio 13.83 Ratio (12.00-20.00); Blood Urea Nitrogen 31.8 mg/dL (9.0-27.0); Calcium 9.3 mg/dL (8.7-10.3); Carbon Dioxide 29.3 mmol/L (21.6-31.8); Chloride 104 mmol/L (96-109); Globulin 2.7 g/dL (1.6-3.3); Glucose 132 mg/dL (70-110); Magnesium 2.3 mg/dL (1.5-2.4); Phosphorus 3.8 mg/dL (2.4-5.1); Potassium 3.9 mmol/L (3.5-5.5); Sodium 141 mmol/L (135-145); Total Bilirubin 0.6 mg/dL (0.3-1.2); Total Protein 6.3 g/dL (6.2-8.2)
== END | disposition home or self-care (01) ==
LOC: LABWHC1 09:55
PROVIDERS: ATTEND Nurse Practitioner Acute Care
DX: N39.0 Urinary tract infection, site not specified (principal); D63.1 Anemia in chronic kidney disease; R80.9 Proteinuria, unspecified; N18.30 Chronic kidney disease, stage 3 unspecified
CPT/HCPCS: 36415; 80053; 81003; 82043; 82570; 83735; 84100; 84156; 85027

== ENCOUNTER → 2023-08-18 | Outpatient (CLI) | payer MEDICARE | END | disposition home or self-care (01) | LOC: LABWHC1 08:56 | PROVIDERS: ATTEND Psychiatry & Neurology Neurology | DX: G62.9 Polyneuropathy, unspecified (principal); Z79.899 Other long term (current) drug therapy; Z86.73 Personal history of transient ischemic attack (TIA), and cerebral infarction without residual deficits | CPT/HCPCS: 36415; 82607; 83036 ==

== ENCOUNTER → 2024-06-09 | Outpatient (CLI) | payer MEDICARE ==
[2024-06-09 16:39] LABS: Creatinine,Urine Random 84.4 mg/dL; Protein/Creatinine Ratio,Urine 0.545
--- NOTE | 2024-06-09 16:46 | US ---
EXAMINATION TYPE: US kidneys/renal and bladder DATE OF EXAM: 06/09/2024 COMPARISON: CT abdomen and pelvis 2010 CLINICAL INDICATION: Male, 84 years old with history of N18.30 CHRONIC KIDNEY DISEASE, STAGE 3 UNSPEC IFIED; Patient denies any signs, symptoms or relevant history TECHNIQUE: Grayscale imaging of the bilateral kidneys and urinary bladder: FINDINGS: EXAM MEASUREMENTS: Right Kidney: 9.3 x 5.1 x 5.2 cm Left Kidney: 10.9 x 5.1 x 4.4 cm Post Void Residual Volume: NA mL Right Kidney: wnl, no evidence for hydronephrosis, mass or renal calculus. Left Kidney: Martin seen Bladder: Thickened duckworth all around Bilateral Jets seen: Yes Normal Post Void Residual: NA IMPRESSION: New [id number] left-sided hydronephrosis likely warrants further clinical workup. [facility], , 06/09/2024 4:43 PM
[2024-06-09 19:14] LABS: ALT 20 U/L (10-49); AST 19 U/L (14-35); Albumin 3.7 g/dL (3.8-4.9); Albumin/Globulin Ratio 1.03 Ratio (1.60-3.17); Alkaline Phosphatase 113 U/L (41-126); BUN/Creat Ratio 15.29 Ratio (12.00-20.00); Blood Urea Nitrogen 36.7 mg/dL (9.0-27.0); Calcium 9.1 mg/dL (8.7-10.3); Carbon Dioxide 26.5 mmol/L (21.6-31.8); Chloride 102 mmol/L (96-109); Globulin 3.6 g/dL (1.6-3.3); Glucose 119 mg/dL (70-110); Magnesium 2.3 mg/dL (1.5-2.4); Phosphorus 3.7 mg/dL (2.4-5.1); Potassium 4.7 mmol/L (3.5-5.5); Sodium 141 mmol/L (135-145); Total Bilirubin 0.4 mg/dL (0.3-1.2); Total Protein 7.3 g/dL (6.2-8.2)
[2024-06-09 19:52] LABS: Appearance,Urine Turbid (Clear); Bilirubin,Urine Negative (Negative); Blood,Urine Moderate (Negative); Color,Urine Yellow (Yellow); Ketones,Urine Negative (Negative); Nitrite,Urine Negative (Negative); PH, Urine 7.5; Specific Gravity,Urine 1.014 (1.001-1.030); Urobilinogen,Urine 0.2 E.U./DL
[2024-06-09 19:55] LABS: Basophils # (A) 0.03 X 10*3/uL (0.00-0.10); Basophils % (A) 0.5 %; Eosinophils # (A) 0.13 X 10*3/uL (0.04-0.35); Eosinophils % (A) 2.1 %; HGB 11.5 g/dL (13.0-17.0); Lymphocytes # (A) 1.78 X 10*3/uL (0.90-5.00); Lymphocytes % (A) 29.2 %; MCH 31.3 pg (27.0-32.0); MCHC 31.1 g/dL (32.0-37.0); MCV 100.5 FL (80.0-97.0); Mean Platelet Volume 10.7 FL (9.5-12.2); Monocytes # (A) 0.75 X 10*3/uL (0.20-1.00); Monocytes % (A) 12.3 %; NRBC Per 100 WBC 0 X 10*3/uL (0.00-0.01); Neutrophils # (A) 3.38 X 10*3/uL (1.80-7.70); Neutrophils % (A) 55.4 %; Platelet Count 245 X 10*3/uL (140-440); RBC 3.68 X 10*6/uL (4.40-5.60)
[2024-06-09 19:58] LABS: Urine Creatinine 98.7 mg/dL (39.0-259.0)
[2024-06-09 20:36] LABS: Bacteria,Urine 4+ (None Seen)
== END | disposition home or self-care (01) ==
LOC: RADUSWWP 15:52
PROVIDERS: ATTEND Internal Medicine Nephrology
DX: N18.30 Chronic kidney disease, stage 3 unspecified (principal); N13.39 Other hydronephrosis
CPT/HCPCS: 76770; 80053; 81001; 82043; 82570; 83735; 84100; 84156; 85025

== ENCOUNTER 2024-07-20 17:26 | Emergency (ER) | payer MEDICARE ==
--- NOTE | 2024-07-20 18:03 | XR ---
EXAMINATION TYPE: XR chest 1V portable DATE OF EXAM: 07/20/2024 5:59 PM COMPARISON: Chest radiographs from 05/28/2023 TECHNIQUE: XR chest 1V portable Portable AP radiograph of the chest. CLINICAL INDICATION:Male, 84 years old with history of trauma; pain FINDINGS: Lungs/Pleura: There is no evidence of pleural effusion, focal consolidation, or pneumothorax. Right basilar atelectasis. Pulmonary vascularity: Unremarkable. Heart/mediastinum: Cardiomediastinal silhouette is enlarged and stable. Musculoskeletal: No acute osseous pathology. IMPRESSION: No acute cardiopulmonary disease/process. [facility], , 07/20/2024 6:00 PM
--- NOTE | 2024-07-20 18:03 | XR ---
EXAMINATION TYPE: XR pelvis AP view DATE OF EXAM: 07/20/2024 5:59 PM COMPARISON: None CLINICAL INDICATION: Male, 84 years old with history of Trauma; pain TECHNIQUE: XR pelvis AP view, examined in a single projection. FINDINGS: There is no evidence of fracture or dislocation. There is no soft tissue abnormality. No a bnormal calcifications are present. The spine appears intact. The hips appear intact. No significant degeneration. IMPRESSION: No acute osseous pathology. Mild degeneration changes of the hip. [facility], , 07/20/2024 6:01 PM
[2024-07-20 18:15] LABS: Amphetamine Screen,Urine Not Detected (NotDetected); Barbiturate Screen,Urine Not Detected (NotDetected); Benzodiazepines Screen,Urine Not Detected (NotDetected); Cocaine Screen,Urine Not Detected (NotDetected); Methadone Screen, Urine Not Detected (NotDetected); Opiate Screen,Urine Not Detected (NotDetected); Oxycodone Screen, Urine Not Detected (NotDetected); Phencyclidine Screen,Urine Not Detected (NotDetected); Tricyclic Antidepressant,Urine Not Detected (NotDetected); Urn Cannabinoid Scrn Not Detected (NotDetected)
[2024-07-20 18:17] LABS: Appearance,Urine Turbid (Clear); Bacteria,Urine Many /hpf; Bilirubin,Urine Negative (Negative); Blood,Urine Small (Negative); Color,Urine Colorless; Glucose,Urine (UA) Negative (Negative); Ketones,Urine Negative (Negative); Leukocyte Esterase,Urine Large (Negative); Nitrite,Urine Negative (Negative); Protein,Urine 1+ (Negative); RBC,Urine 49 /hpf (0-5); Specific Gravity,Urine 1.016 (1.001-1.035); Urobilinogen,Urine <2.0 mg/dL (<2.0); WBC,Urine >182 /hpf (0-5)
[2024-07-20 18:27] LABS: Basophils % (A) 0 %; Eosinophils # (A) 0.2 k/uL (0-0.7); Eosinophils % (A) 3 %; HGB 11.9 gm/dL (13.0-17.5); Hypochromasia Slight; Lymphocytes # (A) 1.6 k/uL (1.0-4.8); Lymphocytes % (A) 29 %; MCH 31.1 pg (25.0-35.0); MCHC 31.4 g/dL (31.0-37.0); Mean Platelet Volume 7.5; Monocytes # (A) 0.6 k/uL (0-1.0); Monocytes % (A) 11 %; Neutrophils % (A) 54 %; Platelet Count 222 k/uL (150-450); RBC 3.84 m/uL (4.30-5.90); RDW 12.8 % (11.5-15.5); WBC 5.6 k/uL (3.8-10.6)
[2024-07-20 18:35] LABS: INR 1.1 (<1.2); Partial Thromboplastin Time 26.4 sec (22.0-30.0)
[2024-07-20 18:37] LABS: ALT 18 U/L (4-49); AST 24 U/L (17-59); African American GFR (CKD) 23 (>60 ml/min/1.73 sqM); Albumin 3.6 g/dL (3.5-5.0); Alcohol <10 mg/dL; Alkaline Phosphatase 93 U/L (38-126); Anion Gap 7 mmol/L; Blood Urea Nitrogen 56 mg/dL (9-20); Calcium 8.8 mg/dL (8.4-10.2); Carbon Dioxide 30 mmol/L (22-30); Chloride 101 mmol/L (98-107); Glucose 85 mg/dL (74-99); Non-African American GFR(CKD) 20 (>60 ml/min/1.73 sqM); Potassium 4.7 mmol/L (3.5-5.1); Sodium 138 mmol/L (137-145); Total Bilirubin 0.5 mg/dL (0.2-1.3)
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
[2024-07-20] MEDS: LEVOFLOXACIN 750 MG TAB PO STA (20:48)
[2024-07-20 21:00] VITALS: BP 165/70; PULSE 45; RESP 18; TEMP 98.3
== END 2024-07-20 21:00 | disposition home or self-care (01) ==
LOC: EC 17:26
DX: Z04.1 Encounter for examination and observation following transport accident (principal); N39.0 Urinary tract infection, site not specified; B88.9 Infestation, unspecified; R00.1 Bradycardia, unspecified; R79.89 Other specified abnormal findings of blood chemistry; I48.91 Unspecified atrial fibrillation; Z79.01 Long term (current) use of anticoagulants; Z86.73 Personal history of transient ischemic attack (TIA), and cerebral infarction without residual deficits; Z88.8 Allergy status to other drugs, medicaments and biological substances
CPT/HCPCS: 36415; 70450; 71045; 72125; 72170; 80053; 80306; 80320; 81001; 85025; 85610; 85730; 86850; 86900; 86901; 87086; 93005; 99285

== ENCOUNTER → 2024-08-04 | Outpatient (CLI) | payer MEDICARE ==
--- NOTE | 2024-08-04 12:23 | CT ---
EXAMINATION TYPE: CT abdomen pelvis wo con DATE OF EXAM: 08/04/2024 11:57 AM COMPARISON: None. CLINICAL INDICATION: Male, 84 years old with history of N13.30 HYDRONEPHROSIS, Hydronephrosis TECHNIQUE: Axial images with sagittal coronal reformats. Examination of the solid and hollow viscera is limited given the lack of contrast. CT DLP: 669.8 mGycm, Automated exposure control for dose reduction was used. FINDINGS: LUNG BASES: No evidence for nodule. No evidence for infiltrate. LIVER/GB: The gallbladder is unremarkable. No space-occupying hepatic lesion. PANCREAS: No pancreatic mass identified. No inflammatory process seen. SPLEEN: No evidence for splenomegaly. No intrasplenic lesions seen. ADRENALS: No adrenal nodules identified. No evidence for thickening. KIDNEYS: No evidence for renal mass. No nephrolithiasis. Moderate left-sided hydronephrosis and hydro ureter. There is irregularity of the urinary bladder likely reflective of chronic cystitis. Clinical correlation advised. BOWEL: Appendix has a normal appearance. No evidence of bowel obstruction. No inflammatory process. Lymph nodes: No evidence for adenopathy greater than 1 cm. Abdominal aorta: Atheromatous changes seen. No evidence for aneurysm. Genital organs: No significant abnormality. Other: No significant abnormality. IMPRESSION: 1.Moderate left-sided hydronephrosis and hydroureter. There is irregularity of the urinary bladder li ct reflective of chronic cystitis. Clinical correlation advised. [facility], , 08/04/2024 12:21 PM
== END | disposition home or self-care (01) ==
LOC: RADCTMAIN 11:29
PROVIDERS: ATTEND Urology
DX: C61 Malignant neoplasm of prostate (principal); N13.30 Unspecified hydronephrosis
CPT/HCPCS: 74176; 84153

== ENCOUNTER → 2024-09-23 | Outpatient (CLI) | payer MEDICARE ==
--- NOTE | 2024-09-26 17:54 | PE ---
EXAMINATION TYPE: PET CT fusion skull to thigh DATE OF EXAM: 09/23/2024 CLINICAL INDICATION:Male, 84 years old with history of C61 prostate ca; TECHNIQUE: Following the intravenous administration of 5.39 mCi of Ga-68 Illuccix (PSMA), whole bod y images are performed from the skull vertex to the midthigh. Images are reviewed on the computer in the coronal, axial, and sagittal planes. Reconstructed rotating images are created on independent [employer] orkstation and reviewed on the computer. A non-contrast CT is performed in conjunction with the PET scan. CT DLP: 1110.1 mGycm, Automated exposure control for dose reduction was used. COMPARISON: CT 08/04/2024, 07/20/2024, PET/CT None, MRI: None FINDINGS: Mediastinal SUV mean is 2.2. Hepatic parenchyma SUV mean is 10.4. SKULL BASE AND NECK: No suspicious radiotracer activity. CHEST, MEDIASTINUM, AND HILAR REGION: No suspicious radiotracer activity. ABDOMEN AND PELVIS: Mildly enlarged prostate gland measuring 5.2 cm in transverse dimension with brachytherapy seeds iden tified. There is minimal heterogenous radiotracer activity throughout the prostate gland without foca l region of uptake. Demonstrates a maximum SUV of 5.2. Superficial posterior midline lower back focal region of soft tissue thickening measuring up to 1.2 c m. This demonstrates radiotracer activity with a maximum SUV of 9.6 (series 4, image 213). MUSCULOSKELETAL STRUCTURES: No suspicious radiotracer activity. OTHER CT: Bilateral aphakia with scleral calcifications. Calcifications within the bilateral cerebell um. Intracranial vascular calcifications. Bilateral carotid bulb calcifications. Mild atherosclerotic calcification of the aorta and its branches. Mild to moderate coronary to calcification. Mild cardio megaly. Trace pericardial effusion. Bilateral gynecomastia. Elevation of the right hemidiaphragm. [place] degenerative disc disease of the spine. Degenerative changes of the pubic symphysis. Fat fill ed right inguinal hernia. Trabeculated urinary bladder with posterior right urinary bladder wall 2 di verticulum. Moderate left hydroureteronephrosis with a ureteral stent in place which appears in appro priate position. IMPRESSION: 1. Posttreatment changes of the prostate gland with no focal radiotracer activity above background d emonstrated. 2. Focal region of soft tissue superficial skin thickening of the midline lower back with radiotrace r activity identified. No other regions of suspicious radiotracer activity. This can be seen with pro state metastasis versus other nonprostatic malignancy or benign conditions. Recommend dermatology con sult with possible ultrasound/tissue sampling. 3. Moderate left hydroureteronephrosis with ureteral stent in place. Trabeculated appearance of the urinary bladder with diverticula identified. [facility], , 09/26/2024 5:52 PM
== END | disposition home or self-care (01) ==
LOC: RADPETMAIN 13:17
PROVIDERS: ATTEND Urology
DX: C61 Malignant neoplasm of prostate (principal); N13.30 Unspecified hydronephrosis; Z96.0 Presence of urogenital implants; Z98.890 Other specified postprocedural states
CPT/HCPCS: 78815; A9596